=== PATIENT | male | born 1965 | race Caucasian/White ===

== ENCOUNTER 2020-07-22 07:53 | Emergency (ER) | payer OTHER, SELFPAY ==
--- NOTE | ~2020-07-22 | XR_ITS ---
EXAMINATION: XR tibia fibula RT 2V EXAM DATE: 07/22/2020 08:13 INDICATION: Initial encounter following injury, with pain of the right tibia/fibula laterally. TECHNIQUE: Right tibia/fibula frontal and lateral projections obtained and reviewed. There is no eron or study for comparison. FINDINGS: Right tibial and fibular shafts unremarkable. There are no acute fractures or dislocations identified. There is no subcutaneous gas. The soft tissue is unremarkable. There are no radiopaq ue foreign bodies. IMPRESSION: 1. XR tibia fibula RT 2V exam without acute osseous findings. Reviewed, dictated and finalized at location D.
[2020-07-22 08:00] VITALS: BP 157/98; PULSE 100; RESP 16; TEMP 37.1; O2SAT 95
--- NOTE | 2020-07-22 08:09 | ED.LOWEXIN ---
HPI - Extremity Injury (Lower) General Chief Complaint: Extremity Injury, Lower Stated Complaint: right leg injury Time Seen by Provider: 07/22/20 08:02 History of Present Illness HPI Narrative: Patient is a 54-year-old male who presents ER with right lower extremity pain. Patient reports he is walking last night and tripped over a case of bottled water. Sudden onset pain right lower extremity lateral aspect of the calf. Was able to barely bear weight and go to bed. She woke up this morning cannot stand on it due to pain. No numbness or tingling or swelling. He did not strike his head or lose consciousness. Related Data Home Medications Medication Instructions Recorded Confirmed atorvastatin 07/22/20 07/22/20 lisinopril 07/22/20 sitagliptin-metformin [Janumet] tablet 07/22/20 Allergies Allergy/AdvReac Type Severity Reaction Status Date / Time Iodine and Iodide Containing Allergy Unknown life Verified 07/22/20 08:03 Produc threatening Contrast Media Allergy Severe Anaphylactic Uncoded 07/22/20 08:03 Shock Review of Systems Review of Systems: All systems reviewed & are unremarkable except as noted in HPI and below Musculoskeletal: Musculoskeletal: Denies back pain, Denies arthralgias, Denies joint swelling and Reports muscle cramps Comments: Right lower extremity pain Neurologic: Denies syncope, Denies headache(s), Denies focal weakness and Denies numbness PMFSH Past Medical History Medical History (Updated 07/22/20 @ 09:45 by Daniel Walker MD) Diabetes Hypertension Surgical History Surgical History (Updated 07/22/20 @ 08:10 by Daniel Walker MD) History of back surgery Family History Family History (Updated 10/17/15 @ 23:19 by DOCTOR UNKNOWN) Sibling Family history of premature coronary heart disease Family history of chronic obstructive pulmonary disease Family history of diabetes mellitus in first degree relative Father Family history of chronic obstructive pulmonary disease, Onset Age: 78 Family history of coronary artery disease, Onset Age: 78 Patient's father is , Onset Age: 78 Grandparent Diabetes mellitus Social History Social History Smoking status: Heavy tobacco smoker Exam Narrative: Exam Narrative: GENERAL: Well-appearing, well-nourished, and in no acute distress. HEAD: Normocephalic, atraumatic. CHEST: Clear to auscultation. No respiratory distress. HEART: Regular rate and rhythm. Normal peripheral pulses. EXTREMITIES: Normal range of motion at the hip/knee/ankle in the right lower extremity with passive motion. Palpation over the mid to proximal aspect of the fibula. No swelling or deformity or bruising. Negative Homans' sign. No pedal edema. Dorsalis pedis and posterior tibial pulses intact. SKIN: Warm, dry, no rash. NEURO: Alert and oriented x3. Sensation intact in right lower extremity. PSYCH: Normal mood and affect. Course Course Emergency Course: Patient informed of results. No evidence of fracture. Suspect patient has calf strain or deep muscle contusion. Will place on anti-inflammatories and give crutches to bear weight as tolerated. Discussed signs and symptoms to prompt return to the ER. Vital Signs Vital signs: Vital Signs Temperature 98.7 F 07/22/20 08:00 Pulse Rate 100 07/22/20 08:00 Respiratory Rate 16 07/22/20 08:00 Blood Pressure 157/98 H 07/22/20 08:00 Pulse Oximetry 95 07/22/20 08:00 Temperature 98.7 F 07/22/20 08:00 Pulse Rate 100 07/22/20 08:00 Respiratory Rate 16 07/22/20 08:00 Blood Pressure 157/98 H 07/22/20 08:00 Pulse Oximetry 95 07/22/20 08:00 MDM - Extremity Injury (Lower) Imaging Data Radiologist's impression: ITS Impressions Tibia/Fibula X-Ray 07/22/20 08:17 IMPRESSION: 1. XR tibia fibula RT 2V exam without acute osseous findings. Discharge Plan Discharge Clinical Impression: Pain of right calf Patient
[2020-07-22] MEDS: HYDROcodone/acetaminophen (*CRX) 5-325 MG TABLET 1 TAB PO (08:26)
[2020-07-22 10:06] VITALS: BP 151/89; PULSE 88; RESP 18; O2SAT 95
== END 2020-07-22 10:08 | disposition home or self-care (01) ==
PROVIDERS: Emergency Provider Emergency Medicine
DX: M79.661 Pain in right lower leg (principal); I10 Essential (primary) hypertension; E11.9 Type 2 diabetes mellitus without complications; Z79.84 Long term (current) use of oral hypoglycemic drugs
CPT/HCPCS: 73590; 99283; A9270

== ENCOUNTER 2020-10-23 14:56 | Outpatient (CLI) | payer OTHER, SELFPAY ==
--- NOTE | ~2020-10-23 | XR_ITS ---
XR hip RT min 2V DATE: 10/23/2020 15:12 INDICATION: Right hip pain for 2 months. No known injury. TECHNIQUE: AP, lateral and crosstable lateral views of right hip COMPARISON: None FINDINGS: No fracture or dislocation, avascular necrosis or bone destruction of the right hip. The pu bic symphysis and right sacroiliac joint are intact. IMPRESSION: No significant abnormality of the right hip Reviewed, dictated and finalized at location B.
== END 2020-10-23 14:57 | disposition home or self-care (01) ==
LOC: ANHIMG 14:59
PROVIDERS: PCP Internal Medicine; Visit Provider Nurse Practitioner
DX: M25.551 Pain in right hip (principal)
CPT/HCPCS: 73502

== ENCOUNTER 2020-10-28 14:06 | Outpatient (CLI) | payer OTHER, SELFPAY ==
--- NOTE | ~2020-10-28 | US_ITS ---
EXAMINATION: US arterial duplex LE RT DATE: 10/28/2020 14:56 INDICATION: Peripheral vascular disease with right hip pain TECHNIQUE: Multiple grayscale and Doppler ultrasound images of the arteries of the right lower limb w ere obtained. COMPARISON: None FINDINGS: Grayscale images there is small amount of scattered echogenic calcified atherosclerotic plaque along the arteries of the right lower limb, none of which on grayscale imaging appears hemodynamically sign ificant. Triphasic waveforms with brisk systolic upstrokes are seen in the right common femoral, femo ral, popliteal, peroneal, posterior tibial and dorsalis pedis arteries. IMPRESSION: 1. Normal triphasic waveforms with brisk systolic upstrokes throughout the arteries of the right lowe r limb with mild scattered atherosclerotic plaque which does not appear hemodynamically significant. Reviewed, dictated and finalized at location A. IMPRESSION: 1. Normal triphasic waveforms with brisk systolic upstrokes throughout the mala nadeem of the right lower limb with mild scattered atherosclerotic plaque which d oes not appear hemodynamically significant.
== END 2020-10-28 14:07 | disposition home or self-care (01) ==
PROVIDERS: PCP Internal Medicine; Visit Provider Nurse Practitioner
DX: I73.9 Peripheral vascular disease, unspecified (principal); M25.551 Pain in right hip
CPT/HCPCS: 93926

== ENCOUNTER 2021-01-19 12:09 | Outpatient (CLI) | payer OTHER, SELFPAY ==
[2021-01-19 12:41] LABS: Alanine Aminotransferase 29 U/L (4-50); Albumin Level 4.4 g/dL (3.5-5.1); Alkaline Phosphatase 75 U/L (38-126); Anion Gap 6 mmol/L (8-16); Aspartate Amino Transferase 32 U/L (17-59); Bilirubin,Total 0.9 mg/dL (0.2-1.3); Blood Urea Nitrogen 9 mg/dL (9-20); Calcium 9.4 mg/dL (8.4-10.2); Carbon Dioxide 32 mmol/L (22-30); Chloride 103 mmol/L (98-107); Cholesterol 147 mg/dL (0-200); Estimated Glomerular Filt Rate > 60; Glucose 145 mg/dL (65-110); HDL Direct 52 mg/dL; Sodium 141 mmol/L (137-145); Triglycerides 223 mg/dL (<150)
[2021-01-19 12:51] LABS: LDL Cholesterol Direct 69 mg/dL
[2021-01-19 13:09] LABS: Prostate Specific Antigen 1.1 ng/mL (< OR = 4.0)
[2021-01-19 15:04] LABS: Hemoglobin A1C 7.1 % (<5.7)
== END 2021-01-19 12:10 | disposition home or self-care (01) ==
LOC: ANHLAB 12:11
PROVIDERS: PCP Internal Medicine; Visit Provider Nurse Practitioner
DX: E78.5 Hyperlipidemia, unspecified (principal); E11.9 Type 2 diabetes mellitus without complications; Z12.5 Encounter for screening for malignant neoplasm of prostate; E03.9 Hypothyroidism, unspecified
CPT/HCPCS: 36415; 80053; 80061; 83036; 84153; 84443; G0103

== ENCOUNTER 2021-01-26 11:38 | Outpatient (CLI) | payer OTHER, SELFPAY | END 2021-01-26 11:39 | disposition home or self-care (01) | LOC: ANHLAB 11:39 | PROVIDERS: PCP Internal Medicine; Visit Provider Internal Medicine | DX: G25.81 Restless legs syndrome (principal) | CPT/HCPCS: 36415; 82728 ==

== ENCOUNTER 2021-03-17 14:57 | Outpatient (CLI) | payer OTHER, SELFPAY ==
--- NOTE | ~2021-03-17 | CT_ITS ---
EXAMINATION:CT lung screening DATE: 03/17/2021 15:20 INDICATION: Personal history of tobacco dependence. Current smoker with 45 pack year history. TECHNIQUE: Computed tomography (CT) of the chest was performed without intravenous contrast. Automate d exposure control and iterative reconstruction technique were employed. The dose-length product (DLP ) was 279.95 mGy-cm. COMPARISON: None. FINDINGS: There is mild emphysema. A calcified right lung nodule and calcified right hilar lymph node s are consistent with old granulomatous disease. There is mild atelectasis bilaterally. No pleural ef fusion. The heart size is normal. There are coronary artery calcifications. No pericardial effusion. There is moderate thoracic spondylosis. IMPRESSION: 1. Lung-RADS category 1: Negative. Continue annual screening with noncontrast low-dose chest CT in 12 months. Reviewed, dictated and finalized at location B. 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 Lung-RADS category 1: Negative. Continue annual screening with noncontrast l ow-dose chest CT in 12 months.
== END 2021-03-17 14:58 | disposition home or self-care (01) ==
LOC: ANHIMG 15:02
PROVIDERS: PCP Internal Medicine; Visit Provider Nurse Practitioner
DX: Z12.2 Encounter for screening for malignant neoplasm of respiratory organs (principal); Z87.891 Personal history of nicotine dependence
CPT/HCPCS: 71271

== ENCOUNTER 2021-07-22 08:37 | Outpatient (CLI) | payer OTHER, SELFPAY ==
--- NOTE | 2021-07-22 11:00 | NEURO_ITS ---
Impression: # Complains of burning pain in lower extremties. 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 # Needle/EMG exam revealed neurogenic changes in multiple muscles. Nerve Conduction Studies Anti Sensory Summary Table Stim Site NR Peak (ms) P-T Amp (?V) Site1 Site2 Delta-P (ms) Dist (cm) Maverick (m/s) Left Sup Fibular Anti Sensory (Ant Lat Mall) NO RESPONSE 14 cm NR 14 cm Ant Lat Mall 16.0 Right Sup Fibular Anti Sensory (Ant Lat Mall) NO RESPONSE 14 cm NR 14 cm Ant Lat Mall 16.0 Left Sural Anti Sensory (Lat Mall) Calf 3.8 42.0 Calf Lat Mall 3.8 16.0 42 Right Sural Anti Sensory (Lat Mall) NO RESPONSE Calf NR Calf Lat Mall 16.0 Motor Summary Table Stim Site NR Onset (ms) O-P Amp (mV) Site1 Site2 Delta-0 (ms) Dist (cm) Maverick (m/s) Left Peroneal Motor (Vastus Med) NO RESPONSE Ankle NR Popit Ankle 0.0 Popit NR Right Peroneal Motor (Vastus Med) Ankle 5.5 1.1 Popit Ankle 11.3 38.0 34 Popit 16.8 1.7 Left Tibial Motor (Abd Baca Brev) Ankle 7.0 1.5 Knee Ankle 10.7 41.0 38 Knee 17.7 3.7 Right Tibial Motor (Abd Baca Brev) Ankle 5.0 5.4 Knee Ankle 11.4 40.0 35 Knee 16.4 4.0 F Wave Studies NR F-Lat (ms) L-R F-Lat (ms) Left Peroneal (Mrkrs) (EDB) NO RESPONSE NR Right Peroneal (Mrkrs) (EDB) 61.10 Left Tibial (Mrkrs) (Abd Hallucis) DISPERSED RESPONSE NR Right Tibial (Mrkrs) (Abd Hallucis) 58.09 EMG Side Muscle Nerve Root Ins Act Fibs Amp Dur Recrt Comment Right AntTibialis Dp Br Fibular L4-5 Nml Nml Nml Nml Nml Right Gastroc Tibial S1-2 Nml Nml Nml Nml Nml Right Fibularis Long Sup Br Fibular L5-S1 Nml Nml Nml >12ms Reduced Right Flex Dig Long Tibial L5-S2 Nml Nml Nml >12ms Reduced Right Ext Dig Brev Dp Br Fibular L5, S1 Nml Nml Nml >12ms Reduced Left AntTibialis Dp Br Fibular L4-5 Nml Nml Nml Nml Nml Left Gastroc Tibial S1-2 Nml Nml Nml Nml Nml Left Fibularis Long Sup Br Fibular L5-S1 Nml Nml Nml >12ms Reduced Left Flex Dig Long Tibial L5-S2 Nml Nml Nml >12ms Reduced Left Ext Dig Brev Dp Br Fibular L5, S1 Nml Nml Nml >12ms Reduced MTDD
== END 2021-07-22 08:38 | disposition home or self-care (01) ==
LOC: ANHNEURO 08:39
PROVIDERS: PCP Internal Medicine; Visit Provider Internal Medicine
DX: E11.40 Type 2 diabetes mellitus with diabetic neuropathy, unspecified (principal); E11.65 Type 2 diabetes mellitus with hyperglycemia; G62.9 Polyneuropathy, unspecified
CPT/HCPCS: 95886; 95910

== ENCOUNTER 2021-07-31 14:54 | Outpatient (CLI) | payer OTHER, SELFPAY ==
[2021-07-31 15:32] LABS: Alanine Aminotransferase 33 U/L (6-50); Albumin Level 4.6 g/dL (3.5-5.1); Alkaline Phosphatase 98 U/L (38-126); Anion Gap 9 mmol/L (8-16); Aspartate Amino Transferase 35 U/L (17-59); Bilirubin,Total 0.5 mg/dL (0.2-1.3); Blood Urea Nitrogen 12 mg/dL (9-20); Calcium 9.1 mg/dL (8.4-10.2); Carbon Dioxide 25 mmol/L (22-30); Chloride 104 mmol/L (98-107); Cholesterol 137 mg/dL (0-200); Estimated Glomerular Filt Rate > 60; Glucose 110 mg/dL (65-110); HDL Direct 42 mg/dL; Potassium 4.1 mmol/L (3.4-5.0); Sodium 138 mmol/L (137-145); Triglycerides 329 mg/dL (<150)
[2021-07-31 15:43] LABS: LDL Cholesterol Direct 56 mg/dL
[2021-07-31 16:16] LABS: Creatinine Urine 62.2 mg/dL
[2021-07-31 16:36] LABS: MALB Creatinine Ratio 714.3 mg/g (0-30); Microalbumin Urine Random 444.3 mg/L (0-16.7)
[2021-07-31 16:52] LABS: Hemoglobin A1C 6.4 % (<5.7)
== END 2021-07-31 14:55 | disposition home or self-care (01) ==
PROVIDERS: PCP Internal Medicine; Visit Provider Internal Medicine
DX: E11.65 Type 2 diabetes mellitus with hyperglycemia (principal); E11.40 Type 2 diabetes mellitus with diabetic neuropathy, unspecified; I10 Essential (primary) hypertension; E78.5 Hyperlipidemia, unspecified
CPT/HCPCS: 36415; 80053; 80061; 82043; 83036

== ENCOUNTER 2021-08-30 13:35 | Outpatient (CLI) | payer OTHER, SELFPAY ==
--- NOTE | ~2021-08-30 | MR_ITS ---
EXAMINATION: MR lumbar spine wo con DATE: 08/30/2021 14:11 INDICATION: Spinal stenosis TECHNIQUE: Magnetic resonance imaging (MRI) of the lumbar spine was performed without intravenous con trast. Sequences included sagittal T2-weighted FSE, sagittal T2-weighted FS FSE, sagittal T1-weighted FSE, and axial T2-weighted FSE. COMPARISON: Lumbar spine radiographs dated 11/09/[address] dated 03/17/2021 FINDINGS: Hypoplastic bilateral riblets at T12. Sacralized L5 segment with 4 more cephalad nonrib-bearing lumba r segments L1-L4. Chronic mild anterior wedging at T11 and T12. The more caudal lumbar vertebral body heights are normal. Severe disc height loss with prominent fibrovascular degenerative endplate leon es at L4-L5. Additional mild fibrovascular degenerative endplate changes anteriorly at the superior e ndplate of L4 and minimally along the inferior endplates of T12 and L1. Mild disc height loss at T9-T 10 through T11-T12 as well as at L2-L3 and L3-L4. The conus medullaris terminates at T12-L1. There is normal signal in the caudal spinal cord. Bilateral T2 hyperintense renal cysts the largest on the ri ght measuring 1.6 cm. Paravertebral soft tissues are otherwise unremarkable. The following disc level s are specifically discussed: T10-T11: Annular fissure and ventral disc extrusion measuring 8 x 5 x 6 mm which indents the ventral surface of the cord. There is an additional small left foraminal zone disc protrusion. There is mild bilateral facet joint osteoarthritis. There is mild right and moderate left neural foraminal stenosis . There is mild central canal stenosis. T11-T12: The disc does not extend beyond the endplate margin. There is mild bilateral facet joint ost eoarthritis. There is no neural foraminal stenosis. There is no central canal stenosis. T12-L1: The disc does not extend beyond the endplate margin. There is mild bilateral facet joint oste oarthritis. There is no neural foraminal stenosis. There is no central canal stenosis. L1-L2: Disc is bulging. There is mild bilateral facet joint osteoarthritis. There is moderate bilater al neural foraminal stenosis. There is mild central canal stenosis. L2-L3: Disc is bulging. There is mild bilateral facet joint osteoarthritis. There is moderate left an d mild to moderate right neural foraminal stenosis. There is mild to moderate central canal stenosis. L3-L4: Disc is bulging. There is hypertrophy of the ligamentum flavum as well as mild epidural lipoma tosis. There is moderate left and moderate to severe right facet joint osteoarthritis. There is moder ate bilateral neural foraminal stenosis. There is severe central canal stenosis. L4-L5: . Fissure with broad-based disc extrusion extending from foraminal zone to foraminal zone with disc material extending a few millimeters cephalad and caudal to the level of the endplates. There i s moderate right and moderate to severe left facet joint osteoarthritis. Postoperative change of prio r right hemilaminotomy with resection of the right ligamentum flavum. Mild hypertrophy of the left li gamentum flavum. There is moderate to severe bilateral neural foraminal stenosis. There is mild to mo derate central canal stenosis. L5-S1: Localized L5 segment with rudimentary disc which does not extend beyond the endplate margins. There is no neural foraminal stenosis. There is no central canal stenosis. IMPRESSION: 1. Sacralized L5 segment with severe spondylosis at L4-L5 and severe central canal stenosis at L3-L4. Mild spondylosis in the more cephalad lumbar and lower thoracic spine. Reviewed, dictated and finalized at location A. IMPRESSION: 1. Sacralized L5 segment with severe spondylosis at L4-L5 and severe central ca nal stenosis at L3-L4. Mild spon
== END 2021-08-30 13:36 | disposition home or self-care (01) ==
PROVIDERS: PCP Internal Medicine; Visit Provider Psychiatry & Neurology Neurology
DX: M47.815 Spondylosis without myelopathy or radiculopathy, thoracolumbar region (principal); M48.05 Spinal stenosis, thoracolumbar region
CPT/HCPCS: 72148

== ENCOUNTER 2021-09-30 01:00 | Day surgery (SDC) | payer OTHER, SELFPAY ==
[2021-09-28 10:50] VITALS: BMI 33.5
--- NOTE | 2021-09-28 11:00 | PC.NURSE ---
Report to the Outpatient Waiting Room, entrance under the green pavilion located off [facility], at time 1000 on date 09/30/21. OR Time: 1200. - You and your visitor will be asked a series of questions to screen for COVID 19 for your protection. - Only one visitor is allowed at this time. - The patient visitor is requested to leave or wait in car when not with patient. - A mask is required within the hospital. Patients may have clear liquids (water, carbonated beverages, clear teas, apple juice) until 3 hours prior to surgery with a maximum of 20 ounces. - No food from midnight until time of surgery Take the following medications with a SIP of water the morning of surgery: DOXYCYCLINE, METOPROLOL Medications to discontinue per physician: VITAMINS/SUPPLEMENTS Date to take last dose: NO MORE UNTIL AFTER SURGERY Please no make-up, nail welsh, hairspray, perfume, deodorant, or body powder the day of surgery. No jewelry (including any body piercings) or valuables the day of surgery, leave them at home. Please take a shower or bath the night before, or the morning of, surgery with an antibacterial soap. Wear comfortable, loose fitting clothing. - Jewelry must be removed prior to entering the operating room. Rings and piercings that are not removed may be cut off. - The hospital will not accept responsibility for valuables. - Please leave all valuables, including medications, at home the day of surgery. If you are going home after surgery, a licensed school bus driver/mechanic must drive you home. - NO public transportation without another adult. - We recommend that an adult stay with you for 24 hours following discharge. - We also recommend that you do not drive, make important decision, drink alcoholic beverages, or take any drugs that were not prescribed by your health care provider for at least 24 hours after your discharge time. Follow any additional instructions given to you from your surgeon. If you or anyone in your household have experienced Covid symptoms in the past week, please notify your surgeon or the nurse liaison at the phone number below for possible testing. Telephone instructions given to PT - ESTEFANIA TURPIN and asked if any additional questions and then verbalized understanding. Patient advised to call surgeon office or pre surgery nurse liaison [phone] if any additional questions.
--- NOTE | 2021-09-29 12:16 | WPDANESEPPF ---
Anes - Initial Pre Proc Eval Procedure: Operation Date: 09/30/21 12:00 Proposed Procedures p Incision and Drainage Right Buttock Abscess - Miguel Hughes MD Date/Time: 09/29/21 12:16 Surgeon: Miguel Hughes MD Pre Op Diagnosis: right buttock abscess Patient Data Age: 55 Gender: M Height: 1.75 m Weight: 103 kg Allergies Allergy/AdvReac Type Severity Reaction Status Date / Time Iodine and Iodide Containing Allergy Unknown life Verified 09/30/21 10:41 Produc threatening gabapentin Allergy lethargic Verified 09/30/21 10:41 pramipexole Allergy Vomiting Verified 09/30/21 10:41 ropinirole Allergy Vomiting Verified 09/30/21 10:41 Contrast Media Allergy Severe Anaphylactic Uncoded 09/30/21 10:41 Shock Home Medications Medication Instructions Recorded Confirmed Type glipizide 5 mg tablet 5 mg PO DAILY #90 tabs 03/12/21 09/30/21 Rx metformin 1,000 mg tablet 1,000 mg PO BID #180 tabs 03/12/21 09/30/21 Rx atorvastatin 10 mg tablet 10 mg PO DAILY #90 tabs 04/29/21 09/30/21 Rx lisinopril 10 mg tablet 10 mg PO DAILY #90 tabs 04/29/21 09/30/21 Rx cyclobenzaprine 10 mg tablet 10 mg PO BID PRN muscle spasm #60 08/03/21 09/30/21 Rx tabs omega 4-mrj-yin-fish oil 1,000 mg 1 cap PO BID 08/18/21 09/30/21 History (120 mg-180 mg) capsule (Fish Oil) alfuzosin 10 mg tablet,extended 10 mg PO DAILY 08/19/21 09/30/21 History release 24 hr cholestyramine-aspartame 4 gram 4 g PO BID #210 grams 08/26/21 09/30/21 Rx oral powder (Questran Light) doxycycline hyclate 100 mg capsule 100 mg PO DAILY #20 caps 09/25/21 09/30/21 Rx metoprolol succinate 50 mg 50 mg PO DAILY #90 tabs 09/25/21 09/30/21 Rx tablet,extended release 24 hr triamcinolone acetonide 0.025 % 1 applic topical BID PRN Rash 09/28/21 09/30/21 History topical cream Patient hx anesthesia problems: none Family hx anesthesia problems: none Results Review: All pre-operative results and documents have been reviewed as part of the pre-operative evaluation. [facility] Past Medical History Medical History COPD (chronic obstructive pulmonary disease) Diabetes Essential hypertension Hypertension Mixed hyperlipidemia Obesity PATITO (obstructive sleep apnea) Restless legs syndrome Tobacco use Urine troubles Surgical History Surgical History History of back surgery History of laminectomy History of tonsillectomy Status post laminectomy Family History Family History Sibling Family history of premature coronary heart disease Family history of chronic obstructive pulmonary disease Family history of diabetes mellitus in first degree relative Father Family history of chronic obstructive pulmonary disease, Onset Age: 78 Family history of coronary artery disease, Onset Age: 78 Patient's father is , Onset Age: 78 Grandparent Diabetes mellitus Social History Social History Smoking packs per day: 0.5 Smoking cigarettes per day: 10.0 Years smoked: 45 Smoking pack-years: 22.50 Smoking status: Current every day smoker Tobacco type: cigarettes Second hand tobacco smoke exposure: No Alcohol intake: current Drinks per week: 4 Alcohol use details: mixed drinks Substance use: never Substance use type: does not use Living arrangements: alone Gender identity (if verbalized by the patient): Male Spiritual care concerns: No Anes - Eval Final PreProcedure Day of Procedure 09/29/21 12:16 Patient weight: obese Heart: regular rate and rhythm Lungs: clear to auscultation and normal air movement Airway: Mallampati scale class II Neurological: alert and oriented Last oral intake: >/= 8 hours ASA classification: III Emergent: no Anesthetic plan: proceed Anesthesia type a
--- NOTE | 2021-09-30 09:57 | WPDHPUPDATE1 ---
History and Physical Update Update Date/Time: 09/30/21 09:57 History and Physical has been reviewed, including an updated exam of the patient. There are NO changes in the patient's condition. Risks, benefits, and alternatives have been discussed and questions answered. Patient agrees to proceed with procedure.
[2021-09-30 10:07] VITALS: BP 156/90; PULSE 103; RESP 18; TEMP 36.6; O2SAT 97
[2021-09-30] MEDS: LACTATED RINGERS 1,000 ML 30 ML IV CONT (10:25)
[2021-09-30 10:31] LABS: Glucose Point of Care 158 mg/dl (65-105)
[2021-09-30] MEDS: ceFAZolin 2 GM/D5W 50 ML 2 GM/50 ML BAG IVPB (12:04)
[2021-09-30 12:38] VITALS: BP 113/63; PULSE 94; RESP 14; O2SAT 94
[2021-09-30] MEDS: BUPIVACAINE/EPINEPHRINE 0.25% 50 ML VIAL INFILTRATE (12:42)
[2021-09-30 12:44] LABS: Glucose Point of Care 154 mg/dl (65-105)
[2021-09-30 13:00] VITALS: BP 138/97; PULSE 92; RESP 20
[2021-09-30 13:25] VITALS: BP 148/90; PULSE 98; RESP 20
--- NOTE | 2021-09-30 13:25 | W.PM.PROC2 ---
Procedure Note - Detailed Date of Procedure 09/30/21 Pre-op Diagnosis right buttock abscess Post-op Diagnosis Same Procedure Performed Incision and drainage complex right buttocks abscess Surgeon Miguel Hughes MD [employer] Maker And Install[employer] Deborah Blanco [facility] Anesthesia General (G IV S) and Local (0.25% bupivacaine with epinephrine) Indications Patient has had a painful swelling with purulent drainage on his right buttocks near the hip. He was seen in the office and found to have a large abscess likely due to an infected cyst. He is taken to surgery now for incision and drainage. Findings Large abscess with cyst contents and purulent fluid Description of Procedure Patient was taken to surgery and anesthesia was introduced. He was placed in left lateral decubitus positions so that the right hip was exposed. This was prepped and draped. Local anesthetic was infiltrated over an area where purulent drainage was coming forth that was located more laterally on the abscess. I then passed a curved clamp into this opening and was able to assess the extent of the abscess. A cruciate incision was then made over this opening. Purulent fluid was evacuated. Some cyst contents were removed. I then passed the Yankauer suction into the abscess and broke up any loculations. I removed some of the skin edges from the cruciate incision. We then irrigated the abscess was saline thoroughly. No further purulent or cyst content was present. The wound was packed with about 18 in of 1 in iodoform Nu Gauze. Bulky fluffs and ABD were placed. Medipore tape was used. Patient was returned to a supine position, awakened and taken to outpatient recovery in good condition. Estimated Blood Loss -5 Drains No Packing Yes (1 in iodoform Nu Gauze) Pathology None sent Complications No immediate complications Condition Stable Disposition Same day [facility] Billing Surgery - Charge Forward: Surgery Billing (Incision and drainage of complex right buttocks abscess)
== END 2021-09-30 13:35 | disposition home or self-care (01) ==
PROVIDERS: PCP Nurse Practitioner; Visit Provider Surgery
PROC: (CPT 46040; principal; 2021-09-30 13:00)
DX: L02.31 Cutaneous abscess of buttock (principal); J44.9 Chronic obstructive pulmonary disease, unspecified; E11.9 Type 2 diabetes mellitus without complications; I10 Essential (primary) hypertension; E78.2 Mixed hyperlipidemia; G47.33 Obstructive sleep apnea (adult) (pediatric); G25.81 Restless legs syndrome; E66.9 Obesity, unspecified; Z68.33 Body mass index [BMI] 33.0-33.9, adult; Z79.84 Long term (current) use of oral hypoglycemic drugs; F17.210 Nicotine dependence, cigarettes, uncomplicated
CPT/HCPCS: 10061; 82948; A9270; J0690; J2250; J2704; J3010; J7120

== ENCOUNTER 2021-12-16 10:53 | Outpatient (CLI) | payer OTHER, SELFPAY ==
--- NOTE | ~2021-12-16 | MR_ITS ---
EXAMINATION: MR lumbar spine wo/w con DATE: 12/16/2021 11:48 INDICATION: Lumbar spinal stenosis. Low back pain. TECHNIQUE: Magnetic resonance imaging (MRI) of the lumbar spine was performed without and with 20 mL MultiHance intravenous contrast. COMPARISON: Lumbar spine MRI 08/30/2021, chest CT 03/17/2021 FINDINGS: L5 is a transitional segment. There is mild chronic anterior wedging of T11 and T12 vertebr al bodies. There are Schmorl's nodes at multiple levels. There is mildly decreased disc height at L3- L4 and severely decreased disc height at L4-L5. At T10-T11, there is a central extrusion with mild ce ntral canal stenosis and ventral indentation of the spinal cord. The distal spinal cord signal intens ity is normal. The conus medullaris is at T12. There are cysts in the kidneys measuring up to 14 mm o n the right. The following disc levels are specifically discussed: L1-L2: The disc is bulging. There is mild bilateral facet joint osteoarthritis. There is mild right a nd moderate left neural foraminal stenosis. There is mild central canal stenosis. L2-L3: The disc is bulging and has an annular fissure. There is mild bilateral facet joint osteoarthr itis. There is mild right and moderate left neural foraminal stenosis. There is mild central canal st enosis. L3-L4: The disc is bulging. There is severe right and moderate left facet joint osteoarthritis. There is moderate bilateral neural foraminal stenosis. There is mild central canal stenosis. L4-L5: The disc is bulging and has an annular fissure. There is moderate bilateral facet joint osteoa rthritis. There is moderate bilateral neural foraminal stenosis. There is mild central canal stenosis with posterior decompression. L5-S1: The disc does not extend beyond the endplate margin. There is no facet joint osteoarthritis. T here is no neural foraminal stenosis. There is no central canal stenosis. IMPRESSION: 1. Severe lower lumbar spondylosis, stable from 08/30/2021. Reviewed, dictated and finalized at location A.
== END 2021-12-16 10:54 | disposition home or self-care (01) ==
PROVIDERS: PCP Internal Medicine; Visit Provider Neurological Surgery
DX: M48.061 Spinal stenosis, lumbar region without neurogenic claudication (principal); M47.816 Spondylosis without myelopathy or radiculopathy, lumbar region
CPT/HCPCS: 72158; A9577

== ENCOUNTER 2022-01-04 10:30 | Outpatient (RCR) | payer OTHER, SELFPAY ==
--- NOTE | 2021-11-25 12:12 | PTOPEVAL1 ---
Evaluation Information Assessment Status Evaluation Diagnosis DDD, stenosis Onset 6 years, worsening in last year Reported Pain Level Pain Score 5: Self Report Assessment PT Clinical Summary Pt presents w/ c/o low back pain and pain into hips causing difficulty with standing, walking, and activities. Has persisted 6 years, worsening significantly in the past year. Reports area is L4 -5, diagnosis DDD, lumbar stenosis. Evaluation shows abnormal alignment, decreased ROM lumbar spine, decreased ROM hips, tight HS mm, (+) tone multiple lumbopelvic mm groups all effecting pt pain. Today we discussed use of OTC NSAIDs as directed or allowed by MD, cryotherapy 3x daily, home exercise program, therapy plan and planned interventions, as well as goals. Pt will greatly benefit from physical therapy to address above deficits, reduce pain, and improve functional outcomes. Plan of Care Interventions Electrical Stimulation,Gait Training,Hot Pack/Cold Pack,Manual Therapy,Mechanical Traction,Patient/ Caregiver Educati,Therapeutic Activities, Therapeutic Exercise PT Services Indicated Yes Treatment Frequency and 2x weekly x 6 weeks Duration These treatments will address the objective and functional deficits as defined above. The patient will be advanced safely and appropriately in order for the patient to progress towards his/her prior level of function. Additional exercises will be introduced and as well as a comprehensive home exercise program upon discharge, if needed, ?to ensure carryover of functional gains achieved in the clinic. This treatment plan has been reviewed and agreement upon by the patient.
--- NOTE | 2021-12-25 10:15 | PCPTNOTE ---
Patient called & cancelled scheduled appointment this date and for 12/28/21 due to having COVID-19.
--- NOTE | 2022-01-04 12:35 | PTOPEVAL1 ---
Assessment and note entered by Ramya Leonardo, PT Evaluation Information Assessment Status Re-evaluation Diagnosis DDD, stenosis Onset 6 years, worsening in last year Reported Pain Level Pain Score 5: Self Report Additional Pain Score Comments Pt reports he has been more conscious of his posture in sitting and this improves his pain Assessment PT Clinical Summary Pt presents today for Progress Assessment of chronic low back pain w/ DDD and spinal stenosis. Unfortunately in the last 40 days since initial evaluation, pt has only been able to attend 4 treatment sessions d/t sickness. He reports he has been more conscious of his posture which helps his pain, has been using his TENS unit, but since he has been sick has been unable to perform his HEP for a few weeks. He does show improvement in his walking with less guarding, and demo's improved ROM with less pain. Discussed with reassessment and will request renewal of prescription secondary to outside factors effecting his ability to participate fully in therapy. Pt is agreeable to continue therapy to improve his pain and thus improve his activity level and function. Plan of Care Interventions Electrical Stimulation,Hot Pack/Cold Pack,Manual Therapy,Neuro Re-education,Patient/Caregiver Educati,Therapeutic Activities,Therapeutic Exercise,Self-Care/Home Management PT Services Indicated Yes Treatment Frequency and 2x weekly x 4 weeks then reassessment Duration These treatments will address the objective and functional deficits as defined above. The patient will be advanced safely and appropriately in order for the patient to progress towards his/her prior level of function. Additional exercises will be introduced and as well as a comprehensive home exercise program upon discharge, if needed, ?to ensure carryover of functional gains achieved in the clinic. This treatment plan has been reviewed and agreement upon by the patient.
--- NOTE | 2022-01-04 14:04 | PTOPPROG ---
Assessment and note entered by Ramya Leonardo, PT Progress Information Assessment Status Progress note Diagnosis DDD, stenosis Onset 6 years, worsening in last year Assessment PT Clinical Summary Pt presents today for Progress Assessment of chronic low back pain w/ DDD and spinal stenosis. Unfortunately in the last 40 days since initial evaluation, pt has only been able to attend 4 treatment sessions d/t sickness. He reports he has been more conscious of his posture which helps his pain, has been using his TENS unit, but since he has been sick has been unable to perform his HEP for a few weeks. He does show improvement in his walking with less guarding, and demo's improved ROM with less pain. Discussed with reassessment and will request renewal of prescription secondary to outside factors effecting his ability to participate fully in therapy. Pt is agreeable to continue therapy to improve his pain and thus improve his activity level and function. Plan of Care Interventions Electrical Stimulation,Hot Pack/Cold Pack,Manual Therapy,Neuro Re-education,Patient/Caregiver Educati,Therapeutic Activities,Therapeutic Exercise,Self-Care/Home Management PT Services Indicated Yes Treatment Frequency and 2x weekly x 4 weeks then reassessment Duration These treatments will address the objective and functional deficits as defined above. The patient will be advanced safely and appropriately in order for the patient to progress towards his/her prior level of function. Additional exercises will be introduced and as well as a comprehensive home exercise program upon discharge, if needed, ?to ensure carryover of functional gains achieved in the clinic. This treatment plan has been reviewed and agreement upon by the patient.
== END 2022-02-03 15:20 | disposition home or self-care (01) ==
LOC: ANHHIPT 10:30
PROVIDERS: PCP Internal Medicine; Visit Provider Neurological Surgery
DX: M54.50 Low back pain, unspecified (principal); M51.36 Other intervertebral disc degeneration, lumbar region; M48.061 Spinal stenosis, lumbar region without neurogenic claudication
CPT/HCPCS: 97014; 97110; 97112; 97140; 97162; 97530; G0283

== ENCOUNTER 2022-02-03 13:10 | Outpatient (CLI) | payer OTHER, SELFPAY ==
[2022-02-03 13:41] LABS: Alanine Aminotransferase 29 U/L (6-50); Albumin Level 4.5 g/dL (3.5-5.1); Alkaline Phosphatase 65 U/L (38-126); Anion Gap 11 mmol/L (8-16); Aspartate Amino Transferase 34 U/L (17-59); Bilirubin,Total 0.7 mg/dL (0.2-1.3); Blood Urea Nitrogen 11 mg/dL (9-20); Calcium 9.3 mg/dL (8.4-10.2); Carbon Dioxide 31 mmol/L (22-30); Chloride 98 mmol/L (98-107); Cholesterol 133 mg/dL (0-200); Estimated Glomerular Filt Rate > 60; Glucose 120 mg/dL (65-110); HDL Direct 48 mg/dL; Potassium 4.1 mmol/L (3.4-5.0); Sodium 140 mmol/L (137-145); Triglycerides 181 mg/dL (<150)
[2022-02-03 13:52] LABS: LDL Cholesterol Direct 60 mg/dL
[2022-02-03 14:11] LABS: Prostate Specific Antigen 1.1 ng/mL (< OR = 4.0)
== END 2022-02-03 13:11 | disposition home or self-care (01) ==
PROVIDERS: PCP Internal Medicine; Visit Provider Nurse Practitioner
DX: E78.2 Mixed hyperlipidemia (principal); E11.40 Type 2 diabetes mellitus with diabetic neuropathy, unspecified; E11.65 Type 2 diabetes mellitus with hyperglycemia; Z12.5 Encounter for screening for malignant neoplasm of prostate
CPT/HCPCS: 36415; 80053; 80061; 83036; 84153; G0103

== ENCOUNTER 2022-03-29 15:15 | Outpatient (RCR) | payer OTHER, SELFPAY ==
--- NOTE | 2022-01-29 17:18 | PTOPEVAL1 ---
Assessment and note entered by Ramya Leonardo, PT Evaluation Information Assessment Status Evaluation Diagnosis back pain Subjective Information Pt reports his standing and doing some stuff is doing better. Walking far is still painful. Feels can walk slowly for 10 minutes, but this is ias long as can walk. Still doing some exercises from last POC Pt states is going to get a fusion but MD states has to quit smoking first. Reported Pain Level Pain Score 5: Self Report Assessment PT Clinical Summary Pt presents w/ c/o chronic low back pain limiting his ability to perform activities especially standing and walking. Pt reports he can walk his dog about 10 minutes but is unable to any further secondary to pain. Reports pain resolves with sitting to rest however never goes below a 5/10 and goes up to a 10/10. He reports today he is planning on having lumbar fusion surgery but has to quit smoking first. Pt acknowledges purpose of therapy is to strengthen and prepare for surgery, improve functional mobility, and attempt to reduce pain if able. Primary goals for patient are to walk further to allow more functional lifestyle and community mobility. Plan of Care Interventions Electrical Stimulation,Gait Training,Hot Pack/Cold Pack,Manual Therapy,Neuro Re-education,Patient/ Caregiver Educati,Therapeutic Activities, Therapeutic Exercise,Self-Care/Home Management, Ultrasound PT Services Indicated Yes These treatments will address the objective and functional deficits as defined above. The patient will be advanced safely and appropriately in order for the patient to progress towards his/her prior level of function. Additional exercises will be introduced and as well as a comprehensive home exercise program upon discharge, if needed, ?to ensure carryover of functional gains achieved in the clinic. This treatment plan has been reviewed and agreement upon by the patient.
--- NOTE | 2022-02-26 15:06 | PTOPPROG ---
Assessment and note entered by Ramya Leonardo, PT Assessment Status Progress Reports= Diagnosis back pain Subjective Information Pt reports feeling 75% improved since starting therapy this last round. hips are doing much better since therapist adjusted his hips a few visits ago. is also able to walk better and farther before pain is to intense. Is doing his exercises as advised. Assessment PT Clinical Summary Pt reports improvement in pain with lowest pain rating decreasing from 5/10 t0 3/10 and worst pain rating decreasing from 10/10 to 6/10. Reports he is only taking Aleve for his pain at the moment. States he feels he can walk better, and longer with his dog before pain stops him. He also demo's improved strength in core and hip musculature. Cont to demo pelvic alignment deficit and decreased LE flexibility effecting pain in his back in addition to the stenosis and arthritis. Thus pt would benefit from cont therapy continue to improve deficits and thus improve pain and function. Plan of Care Interventions Electrical Stimulation,Gait Training,Hot Pack/Cold Pack,Manual Therapy,Mechanical Traction,Neuro Re- education,Patient/Caregiver Educati,Therapeutic Activities,Therapeutic Exercise,Self-Care/Home Management,Ultrasound PT Services Indicated Yes Treatment Frequency and 1-2x weekly x 4 weeks Duration These treatments will address the objective and functional deficits as defined above. The patient will be advanced safely and appropriately in order for the patient to progress towards his/her prior level of function. Additional exercises will be introduced and as well as a comprehensive home exercise program upon discharge, if needed, ?to ensure carryover of functional gains achieved in the clinic. This treatment plan has been reviewed and agreement upon by the patient.
--- NOTE | 2022-03-30 16:32 | BUPTOPDC ---
Assessment and note entered by Ramya Leonardo, PT Assessment Status Discharge Diagnosis back pain Subjective Information Pt reports feeling 100% improved as much as he can be. 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 Today he has met all goals including worst level of back pain being 5/10, at best a 3/ 10, shows improvement in ROM, and strength, reports improvement in walking, states feels he is 100% as good as can get without surgical intervention. He reports understanding his exercise regiment, and how to access therapy again should he require it. With these improvements and having met his goals, pt is being discharged from therapy at this time. Plan of Care Discharge
== END 2022-03-31 09:08 | disposition home or self-care (01) ==
LOC: ANHHIPT 15:15
PROVIDERS: PCP Internal Medicine; Visit Provider Neurological Surgery
DX: M54.50 Low back pain, unspecified (principal); G89.29 Other chronic pain
CPT/HCPCS: 97014; 97032; 97110; 97140; 97162; G0283

== ENCOUNTER 2022-06-04 09:51 | Outpatient (CLI) | payer OTHER, SELFPAY ==
[2022-06-04 11:51] LABS: Hemoglobin 17.9 g/dL (14.0-18.0)
[2022-06-09 13:50] LABS: Testosterone Free 47.2 pg/mL (46.0-224.0)
== END 2022-06-04 09:52 | disposition home or self-care (01) ==
PROVIDERS: PCP Internal Medicine; Visit Provider Nurse Practitioner
DX: R53.83 Other fatigue (principal)
CPT/HCPCS: 36415; 84153; 84402; 85014; 85018

== ENCOUNTER 2022-07-16 14:50 | Outpatient (CLI) | payer OTHER, SELFPAY ==
--- NOTE | ~2022-07-16 | CT_ITS ---
EXAMINATION: CT sinus wo con DATE: 07/16/2022 15:11 INDICATION: Chronic sinusitis. Sinus pressure. TECHNIQUE: Computed tomography (CT) of the paranasal sinuses was performed without intravenous contra st. Iterative reconstruction technique was employed. The dose-length product was 315.62 mGy-cm. COMPARISON: None FINDINGS: The frontal sinuses are small. There is mild mucosal thickening in the bilateral ethmoid an d maxillary sinuses. The sphenoid sinuses are clear. There is leftward deviation of the nasal septum. There is occlusion of right ostiomeatal unit at hiatus semilunaris and the infundibulum. There is oc clusion of left ostiomeatal unit at the hiatus semilunaris. IMPRESSION: 1. Mild mucosal thickening in the paranasal sinuses with occluded ostiomeatal units. 2. Leftward deviation of the nasal septum. Reviewed, dictated and finalized at location E. IMPRESSION: 1. Mild mucosal thickening in the paranasal sinuses with occluded ostiomeatal u nits. 2. Leftward deviation of the nasal septum.
== END 2022-07-16 14:51 | disposition home or self-care (01) ==
PROVIDERS: PCP Internal Medicine; Visit Provider Otolaryngology
DX: R44.8 Other symptoms and signs involving general sensations and perceptions (principal); J34.89 Other specified disorders of nose and nasal sinuses; J34.3 Hypertrophy of nasal turbinates; J34.2 Deviated nasal septum; J32.9 Chronic sinusitis, unspecified
CPT/HCPCS: 70486

== ENCOUNTER 2022-08-11 09:44 | Outpatient (CLI) | payer OTHER, SELFPAY ==
[2022-08-11 10:21] LABS: Hemoglobin A1C 6.2 % (<5.7)
[2022-08-11 10:27] LABS: Alanine Aminotransferase 27 U/L (6-50); Albumin Level 4.4 g/dL (3.5-5.1); Alkaline Phosphatase 73 U/L (38-126); Anion Gap 5 mmol/L (8-16); Aspartate Amino Transferase 31 U/L (17-59); Bilirubin,Total 0.6 mg/dL (0.2-1.3); Blood Urea Nitrogen 11 mg/dL (9-20); Calcium 8.9 mg/dL (8.4-10.2); Carbon Dioxide 32 mmol/L (22-30); Chloride 99 mmol/L (98-107); Cholesterol 126 mg/dL (0-200); Estimated Glomerular Filt Rate > 60; Glucose 128 mg/dL (65-110); HDL Direct 46 mg/dL; Potassium 4.5 mmol/L (3.4-5.0); Sodium 136 mmol/L (137-145); Triglycerides 420 mg/dL (<150)
[2022-08-11 10:38] LABS: LDL Cholesterol Direct 55 mg/dL
[2022-08-16 10:56] LABS: Testosterone Total 325 ng/dL (250-1100)
== END 2022-08-11 09:45 | disposition home or self-care (01) ==
PROVIDERS: PCP Family Medicine; Referring Provider Nurse Practitioner; Visit Provider Nurse Practitioner
DX: R53.83 Other fatigue (principal); E78.5 Hyperlipidemia, unspecified; E11.9 Type 2 diabetes mellitus without complications
CPT/HCPCS: 36415; 80053; 80061; 83036; 84403

== ENCOUNTER 2022-09-02 09:52 | Outpatient (CLI) | payer OTHER, SELFPAY ==
--- NOTE | 2022-09-02 10:14 | ECG_ITS ---
Measurements Intervals [place] Rate: 113 P: 52 [place]: 156 QRS: 96 QRSD: 149 T: 31 QT: 346 QTc: 476 Interpretive Statements SINUS TACHYCARDIA POSSIBLE LEFT ATRIAL ENLARGEMENT [-0.1mV P WAVE IN V1/V2] RIGHT BUNDLE BRANCH BLOCK [120+ ms QRS DURATION, UPRIGHT V1, 40+ ms S IN I/aVL/V4/V5/V6] NO PREVIOUS ECG AVAILABLE FOR COMPARISON Electronically Signed On 09-02-2022 14:04:53 CDT by Hector Perez M.D.
[2022-09-02 10:32] LABS: Hematocrit 56.1 % (42.0-52.0); Hemoglobin 19.4 g/dL (14.0-18.0)
[2022-09-02 10:51] LABS: Anion Gap 6 mmol/L (8-16); Blood Urea Nitrogen 19 mg/dL (9-20); Calcium 9.8 mg/dL (8.4-10.2); Carbon Dioxide 33 mmol/L (22-30); Chloride 100 mmol/L (98-107); Estimated Glomerular Filt Rate > 60; Glucose 141 mg/dL (65-110); Potassium 4.1 mmol/L (3.4-5.0); Sodium 139 mmol/L (137-145)
[2022-09-02 11:20] LABS: Iron 126 ug/dL (49-181)
[2022-09-02 11:31] LABS: Percent Iron Saturation 32 % (20-50)
[2022-09-08 12:11] LABS: Testosterone Free 94.2 pg/mL (35.0-155.0); Testosterone Total 432 ng/dL (250-1100)
== END 2022-09-02 09:53 | disposition home or self-care (01) ==
PROVIDERS: PCP Family Medicine; Referring Provider Anesthesiology; Visit Provider Family Medicine
DX: E11.40 Type 2 diabetes mellitus with diabetic neuropathy, unspecified (principal); E11.65 Type 2 diabetes mellitus with hyperglycemia; G25.81 Restless legs syndrome; G47.33 Obstructive sleep apnea (adult) (pediatric); I73.9 Peripheral vascular disease, unspecified; R53.83 Other fatigue; E11.9 Type 2 diabetes mellitus without complications; D75.9 Disease of blood and blood-forming organs, unspecified; Z72.0 Tobacco use; Z01.818 Encounter for other preprocedural examination; I45.10 Unspecified right bundle-branch block
CPT/HCPCS: 36415; 80048; 83540; 83550; 84402; 84403; 85014; 85018; 93005

== ENCOUNTER 2022-09-07 00:29 | Day surgery (SDC) | payer OTHER, SELFPAY ==
--- NOTE | 2022-08-31 15:56 | SUR.PREOP ---
Report to the Outpatient Waiting Room, entrance under the green pavilion located off [facility], at time 0715 on date 09/07/22. Planned Procedure Time: 0915. Time changes happen often and if your time is changed the preop area will call you the afternoon before. - You and your visitor will be asked to self-screen and do not enter if you have any COVID symptoms. - A mask is optional within the hospital at this time. Patients may have clear liquids (water, carbonated beverages, clear teas, apple juice) until 3 hours prior to surgery with a maximum of 20 ounces. - NO CLEAR LIQUIDS AFTER 0615 - No food from midnight until time of surgery - Infants may have breast milk until 4 hours before surgery, formula 6 hours prior to surgery. - Children will be allowed to drink immediately following surgery. If applicable, please bring a bottle or sippy cup to assist with drinking. Juice, water, soda, and popsicles are readily available. For infants on formula, please bring formula the day of surgery. Pacifiers are allowed. Take the following medications with a SIP of water the morning of surgery: METOPROLOL & WELLBUTRIN DO NOT STOP ANY OF YOUR OTHER PRESCRIPTION MEDICATIONS PRIOR TO SURGERY ?EXCEPT THE FOLLOWING Medications to discontinue per physician STOP FISH OIL 08/31/[address] BEAULIEU Please no make-up, nail sami, hairspray, perfume, deodorant, or body powder the day of surgery. No jewelry (including any body piercings) or valuables the day of surgery, leave them at home. Please take a shower or bath the night before, or the morning of, surgery with an antibacterial soap. Wear comfortable, loose fitting clothing. Children are encouraged to wear pajamas. - Jewelry must be removed prior to entering the operating room. Rings and piercings that are not removed may be cut off. - The hospital will not accept responsibility for valuables. - Please leave all valuables, including medications, at home the day of surgery. If you are going home after surgery, a licensed assembly line driver must drive you home. - NO public transportation without another adult if you receive anesthesia. - We recommend that an adult stay with you for 24 hours following discharge. - We also recommend that you do not drive, make important decision, drink alcoholic beverages, or take any drugs that were not prescribed by your health care provider for at least 24 hours after your discharge time. For Pediatric surgeries, we recommend two adults accompany the child home. Follow any additional instructions given to you from your surgeon. If you or anyone in your household have experienced Covid symptoms in the past week, please notify your surgeon or the nurse liaison at the phone number below for possible testing. Telephone instructions given to ESTEFANIA TURPIN and asked if any additional questions and then verbalized understanding. Patient advised to call surgeon office or pre surgery nurse liaison [phone] if any additional questions.
[2022-08-31 16:11] VITALS: BMI 36.3
--- NOTE | 2022-09-05 10:55 | PM.IMHP ---
H&P: HPI History of Present Illness Date/Time: 09/05/22 10:55 Chief Complaint: nasal obstruction nasal congestion chronic sinusitis septal deviation turbinate hypertrophy Narrative: planned procedure Review of Systems Review of Systems: All systems reviewed & are unremarkable except as noted in HPI and below PMFSH Past Medical History Medical History (Updated 08/17/22 @ 14:11 by Hoang Bernal MD) COPD (chronic obstructive pulmonary disease) Diabetes Essential hypertension Hypertension Mixed hyperlipidemia Obesity PATITO (obstructive sleep apnea) Restless legs syndrome Urine troubles Surgical History Surgical History History of back surgery History of incision and drainage Incision and drainage complex right buttocks abscess 09/30/21 History of laminectomy History of tonsillectomy Status post laminectomy Family History Family History Sibling Family history of premature coronary heart disease Family history of chronic obstructive pulmonary disease Family history of diabetes mellitus in first degree relative Father Family history of chronic obstructive pulmonary disease, Onset Age: 78 Family history of coronary artery disease, Onset Age: 78 Patient's father is , Onset Age: 78 Grandparent Diabetes mellitus Social History Social History Smoking packs per day: 0.5 Smoking cigarettes per day: 10.0 Years smoked: 45 Smoking pack-years: 22.50 Smoking status: Current every day smoker Tobacco type: cigarettes Second hand tobacco smoke exposure: No Alcohol intake: current Drinks per week: 4 Alcohol use details: mixed drinks Substance use: never Substance use type: does not use Lack of Transportation: No Lack of Food: Never True Current Housing: I Have Housing Concerned About Future Housing: No Difficulty Paying Gas/Electric Bills: No Difficulty Paying for Meds: No Currently Unemployed: YES Education: High School Diploma/GED Difficulty w/ Childcare or Family Care: No Living arrangements: alone Gender identity (if verbalized by the patient): Male Spiritual care concerns: No Meds Home Medications and Allergies Home Medications Medication Instructions Recorded Confirmed Type omega 8-zlm-tje-fish oil 1,000 mg 2 cap PO DAILY 08/18/21 08/31/22 History (120 mg-180 mg) capsule (Fish Oil) alfuzosin 10 mg tablet,extended 10 mg PO DAILY 08/19/21 08/31/22 History release 24 hr nicotine See Rx Instructions transdermal 02/09/22 08/31/22 Rx 21mg/24hr-14mg/24hr-7mg/24hr daily .COMPLEX #56 patches transderm patches,sequentl atorvastatin 10 mg tablet 10 mg PO DAILY #90 tabs 04/05/22 08/31/22 Rx lisinopril 10 mg tablet 10 mg PO DAILY #90 tabs 04/05/22 08/31/22 Rx metoprolol succinate 50 mg 50 mg PO DAILY #90 tabs 04/05/22 08/31/22 Rx tablet,extended release 24 hr azelastine 137 mcg (0.1 %) nasal 1 spray intranasal Q12H #30 mL 07/14/22 08/31/22 Rx spray aerosol fluticasone propionate 50 1 - 2 spray intranasal BID #16 mL 07/14/22 08/31/22 Rx mcg/actuation nasal spray,suspension (Flonase Allergy Relief) glipizide 5 mg tablet 5 mg PO DAILY #90 tabs 07/21/22 08/31/22 Rx bupropion HCl 150 mg 24 hr tablet, 150 mg PO QAM #90 tabs 08/17/22 08/31/22 Rx extended release (Wellbutrin XL) nicotine (polacrilex) 2 mg gum 2 mg buccal Q2H #100 ea 08/17/22 08/31/22 Rx trazodone 50 mg tablet 50 mg PO QHS PRN sleep #60 tabs 08/17/22 08/31/22 Rx metformin 1,000 mg tablet 1,000 mg PO BID #180 tabs 08/27/22 08/31/22 Rx Allergies Allergy/AdvReac Type Severity Reaction Status Date / Time gabapentin Allergy Severe lethargic Verified 08/31/22 15:40 Iodine and Iodide Containing Allergy Severe Anaphylactic Verified 08/31/22 15:40 Produc Shock pramipexole Lyle
--- NOTE | 2022-09-06 13:06 | WPDANESEPPF ---
Anes - Initial Pre Proc Eval Procedure: Operation Date: 09/07/22 10:00 Proposed Procedures p Image Guided Bilateral Maxillary Antrostomy Without Tissue Removal, Bilateral Inferior Turbinectomy with Outfracture, Bilateral Anterior Ethmoidectomy - Natan Parker MD s Endoscopic Septoplasty - Natan Parker MD Date/Time: 09/06/22 13:06 Surgeon: Natan Parker MD Pre Op Diagnosis: Chr Sinusitis Patient Data Age: 56 Gender: M Height: 1.73 m Weight: 108.6 kg Allergies Allergy/AdvReac Type Severity Reaction Status Date / Time gabapentin Allergy Severe lethargic Verified 08/31/22 15:40 Iodine and Iodide Containing Allergy Severe Anaphylactic Verified 08/31/22 15:40 Produc Shock pramipexole Allergy Severe Vomiting Verified 08/31/22 15:40 ropinirole Allergy Severe Vomiting Verified 08/31/22 15:40 Contrast Media Allergy Severe Anaphylactic Uncoded 08/31/22 15:40 Shock Home Medications Medication Instructions Recorded Confirmed Type omega 1-umo-axw-fish oil 1,000 mg 2 cap PO DAILY 08/18/21 08/31/22 History (120 mg-180 mg) capsule (Fish Oil) alfuzosin 10 mg tablet,extended 10 mg PO DAILY 08/19/21 08/31/22 History release 24 hr nicotine See Rx Instructions transdermal 02/09/22 08/31/22 Rx 21mg/24hr-14mg/24hr-7mg/24hr daily .COMPLEX #56 patches transderm patches,sequentl atorvastatin 10 mg tablet 10 mg PO DAILY #90 tabs 04/05/22 08/31/22 Rx lisinopril 10 mg tablet 10 mg PO DAILY #90 tabs 04/05/22 08/31/22 Rx metoprolol succinate 50 mg 50 mg PO DAILY #90 tabs 04/05/22 08/31/22 Rx tablet,extended release 24 hr azelastine 137 mcg (0.1 %) nasal 1 spray intranasal Q12H #30 mL 07/14/22 08/31/22 Rx spray aerosol fluticasone propionate 50 1 - 2 spray intranasal BID #16 mL 07/14/22 08/31/22 Rx mcg/actuation nasal spray,suspension (Flonase Allergy Relief) glipizide 5 mg tablet 5 mg PO DAILY #90 tabs 07/21/22 08/31/22 Rx bupropion HCl 150 mg 24 hr tablet, 150 mg PO QAM #90 tabs 08/17/22 08/31/22 Rx extended release (Wellbutrin XL) nicotine (polacrilex) 2 mg gum 2 mg buccal Q2H #100 ea 08/17/22 08/31/22 Rx trazodone 50 mg tablet 50 mg PO QHS PRN sleep #60 tabs 08/17/22 08/31/22 Rx metformin 1,000 mg tablet 1,000 mg PO BID #180 tabs 08/27/22 08/31/22 Rx Patient hx anesthesia problems: post op nausea/vomiting (30 years ago x1, surgeries since that time have been fine) Family hx anesthesia problems: none Results Review: All pre-operative results and documents have been reviewed as part of the pre-operative evaluation. [facility] Past Medical History Medical History (Updated 09/06/22 @ 13:06 by Dustin Serra DO) COPD (chronic obstructive pulmonary disease) Diabetes Essential hypertension Hypertension Mixed hyperlipidemia Obesity PATITO (obstructive sleep apnea) PONV (postoperative nausea and vomiting) Restless legs syndrome Urine troubles Surgical History Surgical History History of back surgery History of incision and drainage Incision and drainage complex right buttocks abscess 09/30/21 History of laminectomy History of tonsillectomy Status post laminectomy Family History Family History Sibling Family history of premature coronary heart disease Family history of chronic obstructive pulmonary disease Family history of diabetes mellitus in first degree relative Father Family history of chronic obstructive pulmonary disease, Onset Age: 78 Family history of coronary artery disease, Onset Age: 78 Patient's father is , Onset Age: 78 Grandparent Diabetes mellitus Social History Social History Smoking packs per day: 0.5 Smoking cigarettes per day: 10.0 Years smoked: 45 Smoking pack-years: 22.50 Smoking status: Current every day smoker Tobacco type: cigarettes Second
[2022-09-07] VITALS (8 sets, daily range): BP systolic 120–156; BP diastolic 66–91; PULSE 90–100; RESP 13–20; TEMP 36.3–37.2; O2SAT 95–99
--- NOTE | 2022-09-07 07:20 | WPDHPUPDATE1 ---
History and Physical Update Update Date/Time: 09/07/22 07:20 History and Physical has been reviewed, including an updated exam of the patient. There are NO changes in the patient's condition. Risks, benefits, and alternatives have been discussed and questions answered. Patient agrees to proceed with procedure.
[2022-09-07 08:46] LABS: Glucose Point of Care 174 mg/dl (65-105)
[2022-09-07] MEDS: ACETAMINOPHEN 500 MG TABLET 1000 MG PO (09:00)
[2022-09-07] MEDS: LACTATED RINGERS 1,000 ML 30 ML IV CONT ×2 (09:32→13:05)
[2022-09-07] MEDS: ceFAZolin 2 GM/D5W 50 ML 2 GM/50 ML BAG IVPB (10:48)
[2022-09-07] MEDS: LIDO 1%/EPINEPHRINE 1:100,000 50 ML VIAL 20 ML INFILTRATE (11:44)
[2022-09-07] MEDS: OXYMETAZOLINE HCL 0.05% NAS 15 ML BTL (*BKC) 1 SPRAY NASAL (11:47)
[2022-09-07] MEDS: MUPIROCIN 2% OINT 22 GM TUBE 1 APPLIC EACH NARE (12:29)
[2022-09-07 13:14] LABS: Glucose Point of Care 214 mg/dl (65-105)
[2022-09-07 13:14] LABS: Glucose Point of Care 237 mg/dl (65-105)
[2022-09-07] MEDS: INSULIN HUMAN REGULAR (*BKC) 100 UNITS/ML IV PUSH (13:21)
--- NOTE | 2022-09-07 13:28 | W.PM.PROC2 ---
Procedure Note - Detailed Date of Procedure 09/07/22 Pre-op Diagnosis Deviation turbinate hypertrophy chronic sinusitis Post-op Diagnosis Same Procedure Performed endoscopic assisted septoplasty inferior turbinate reduction with outfracture as well as bilateral image guided maxillary antrostomies and bilateral image guided endoscopic anterior ethmoidect Surgeon Natan Parker MD Anesthesia General Indications see above Findings disease tissue in the aforementioned sinuses severely deviated septum severely hypertrophied turbinates. Inadvertent left orbital injury with a small piece of exposed fat Description of Procedure patient identified consent verified in the preoperative holding area. The patient was then brought back to the operating room. General anesthesia was induced and endotracheal tube secured the patient's airway. Patient prepped draped positioned procedure confirm 2nd time-out performed. Afrin-soaked pledgets placed in the nose allowed to sit for 5 minutes then removed. Image guidance initiated and confirmed. [place] incision made on the right side after 10 cc of 1% lidocaine 1 100,000 parts epinephrine is injected into the bilateral nasal septum. He has nasal septal flap elevated bilaterally small tear on the left not on the right deviated septum removed with combination Jessica forceps Memo Samaniego forceps and osteotome. [place] incision closed with 4-0 opted 5 0 fast gut sutures. Turbinates reduced in the submucosal plane then outfractured with a [place] elevator was. Maxillary antrostomies performed under image guidance with backbiter double ball tip probe and straight through cut and downbiting stopper good. Unfortunately when removing the uncinate from the left side orbit was entered and a small piece of orbital fat was exposed. The mucosa was placed over the orbital injury. The right side was performed with the same instruments with no injury to the orbit. Anterior ethmoidectomy performed with [place] image guidance and microdebrider. Bleeding minimal 25 cc total. Again there is a left-sided small orbital injury. Gelfoam was placed the bilateral middle meati I stenting the middle turbinates laterally. Langford splints were then placed bilaterally and sutured anteriorly using a 3-0 mattressed nylon suture. Care care the patient given back to T Anesthesiology. I performed all dictated portions the procedure. Care the patient sorry patient taken to PACU no immediate complication. Estimated Blood Loss -25.0 Drains No Packing Yes ( Gelfoam) Pathology None sent Complications Other complications ( left orbital injury exposed fat) Condition Stable Disposition PACU [facility] Billing Surgery - Charge Forward: Surgery Billing
[2022-09-07 13:41] LABS: Glucose Point of Care 220 mg/dl (65-105)
[2022-09-07] MEDS: oxyCODONE HCL (*CRX) 5 MG TAB IR PO (14:00)
== END 2022-09-07 14:59 | disposition home or self-care (01) ==
PROVIDERS: PCP Family Medicine; Visit Provider Otolaryngology
PROC: (CPT 31254; principal; 2022-09-07 10:00)
PROC: (CPT 30520; 2022-09-07 10:00)
DX: J32.9 Chronic sinusitis, unspecified (principal); J95.88 Other intraoperative complications of respiratory system, not elsewhere classified; J34.2 Deviated nasal septum; J34.3 Hypertrophy of nasal turbinates; J34.89 Other specified disorders of nose and nasal sinuses; R51.9 Headache, unspecified; E11.9 Type 2 diabetes mellitus without complications; J44.9 Chronic obstructive pulmonary disease, unspecified; I10 Essential (primary) hypertension; E78.2 Mixed hyperlipidemia; G47.33 Obstructive sleep apnea (adult) (pediatric); G25.81 Restless legs syndrome; Z79.84 Long term (current) use of oral hypoglycemic drugs; E66.9 Obesity, unspecified; Z68.36 Body mass index [BMI] 36.0-36.9, adult; F17.210 Nicotine dependence, cigarettes, uncomplicated; Y65.8 Other specified misadventures during surgical and medical care
CPT/HCPCS: 31254; 31256; 30140; 30520; 61782; 82948; A9270; J0330; J0690; J1100; J1170; J1815; J2250; J2370; J2405; J2704; J3010; J7120

== ENCOUNTER 2023-02-16 13:19 | Outpatient (CLI) | payer OTHER, SELFPAY ==
[2023-02-16 13:41] LABS: Hematocrit 56.5 % (42.0-52.0); Hemoglobin 18.8 g/dL (14.0-18.0); Immature Platelet Fraction Pct 3.6 % (0.9-11.2); Mean Corpuscular HGB Conc 33.3 g/dl (32-36); Mean Corpuscular Hemoglobin 32.4 pg (26-34); Mean Corpuscular Volume 97.4 fl (80-100); Mean Platelet Volume 9.3 fl (7.4-10.4); Platelet Count Result 150 k/mm3 (150-375); Red Cell Distribution Width 12.6 % (11.5-14.5); White Blood Count 6.9 K/mm3 (4.5-10.0)
[2023-02-16 13:49] LABS: Hemoglobin A1C 6.6 % (<5.7)
[2023-02-16 13:56] LABS: Alanine Aminotransferase 36 U/L (6-50); Albumin Level 4.4 g/dL (3.5-5.1); Alkaline Phosphatase 96 U/L (38-126); Anion Gap 11 mmol/L (8-16); Aspartate Amino Transferase 35 U/L (17-59); Bilirubin,Total 0.8 mg/dL (0.2-1.3); Blood Urea Nitrogen 9 mg/dL (9-20); Calcium 9.4 mg/dL (8.4-10.2); Carbon Dioxide 26 mmol/L (22-30); Chloride 100 mmol/L (98-107); Cholesterol 141 mg/dL (0-200); Estimated Glomerular Filt Rate > 60; Glucose 132 mg/dL (65-110); HDL Direct 44 mg/dL; Potassium 4.4 mmol/L (3.4-5.0); Sodium 137 mmol/L (137-145); Triglycerides 345 mg/dL (<150)
[2023-02-16 14:06] LABS: LDL Cholesterol Direct 63 mg/dL
[2023-02-16 14:23] LABS: Prostate Specific Antigen 1.2 ng/mL (< OR = 4.0)
[2023-02-16 15:05] LABS: Creatinine Urine 66.2 mg/dL
[2023-02-16 20:10] LABS: MALB Creatinine Ratio 1684.3 mg/g (0-30)
== END 2023-02-16 13:20 | disposition home or self-care (01) ==
LOC: ANHLAB 13:20
PROVIDERS: PCP Family Medicine; Visit Provider Family Medicine
DX: E11.40 Type 2 diabetes mellitus with diabetic neuropathy, unspecified (principal); E11.65 Type 2 diabetes mellitus with hyperglycemia; E11.9 Type 2 diabetes mellitus without complications; E66.9 Obesity, unspecified; E78.2 Mixed hyperlipidemia; G25.81 Restless legs syndrome; I10 Essential (primary) hypertension; J44.9 Chronic obstructive pulmonary disease, unspecified; R53.83 Other fatigue
CPT/HCPCS: 36415; 80053; 80061; 82043; 83036; 84153; 85027; 85055; G0103

== ENCOUNTER 2023-06-06 09:03 | Outpatient (CLI) | payer OTHER, SELFPAY ==
[2023-06-06 09:44] LABS: CRP < 0.5 mg/dL (<1.0)
[2023-06-06 10:49] LABS: Erythrocyte Sedimentation Rate 1 mm/hr (0-20)
[2023-06-09 09:44] LABS: Immunoglobulin A 151 mg/dL (47-310)
== END 2023-06-06 09:04 | disposition home or self-care (01) ==
LOC: ANHLAB 09:05
PROVIDERS: PCP Family Medicine; Visit Provider Nurse Practitioner
DX: K52.9 Noninfective gastroenteritis and colitis, unspecified (principal)
CPT/HCPCS: 36415; 82784; 84443; 85652; 86140; 86364

== ENCOUNTER 2023-07-14 14:49 | Outpatient (CLI) | payer OTHER, SELFPAY ==
[2023-07-21 19:53] LABS: Pancreatic Elastase, Stool <15 mcg/g
[2023-07-21 23:19] LABS: Calprotectin, Stool 45 mcg/g
== END 2023-07-14 14:50 | disposition home or self-care (01) ==
LOC: ANHLAB 14:50
PROVIDERS: PCP Family Medicine; Visit Provider Nurse Practitioner
DX: K52.9 Noninfective gastroenteritis and colitis, unspecified (principal)
CPT/HCPCS: 82653; 83993

== ENCOUNTER 2023-10-26 01:57 | Day surgery (SDC) | payer OTHER, SELFPAY ==
[2023-10-04 11:36] VITALS: BMI 33.0
[2023-10-26 06:56] VITALS: BP 174/91; PULSE 110; RESP 18; TEMP 36.3; O2SAT 97
[2023-10-26 07:07] LABS: Glucose Point of Care 147 mg/dl (65-105)
[2023-10-26] MEDS: LACTATED RINGERS 1,000 ML 150 ML IV CONT (07:14)
--- NOTE | 2023-10-26 07:47 | WPDANESEPPF ---
Anes - Initial Pre Proc Eval Procedure: Operation Date: 10/26/23 08:00 Proposed Procedures p Colonoscopy - Frederic Webster MD Date/Time: 10/26/23 07:47 Surgeon: Frederic Webster MD Pre Op Diagnosis: gastroenteritis/colitis Patient Data Age: 57 Gender: M Height: 1.78 m Weight: 99.5 kg Last Vital Signs Temp 36.3 C L 10/26/23 06:56 Pulse 110 H 10/26/23 06:56 Resp 18 10/26/23 06:56 BP 174/91 H 10/26/23 06:56 Pulse Ox 97 10/26/23 06:56 Allergies Allergy/AdvReac Type Severity Reaction Status Date / Time gabapentin Allergy Severe lethargic Verified 09/07/23 13:01 Iodine and Iodide Containing Allergy Severe Anaphylactic Verified 09/07/23 13:01 Produc Shock pramipexole Allergy Severe Vomiting Verified 09/07/23 13:01 ropinirole Allergy Severe Vomiting Verified 09/07/23 13:01 Contrast Media Allergy Severe Anaphylactic Uncoded 07/04/23 15:33 Shock Home Medications Medication Instructions Recorded Confirmed Type omega 7-otg-aqr-fish oil 1,000 mg 2 cap PO DAILY 08/18/21 10/04/23 History (120 mg-180 mg) capsule (Fish Oil) alfuzosin 10 mg tablet,extended 10 mg PO DAILY #100 tabs 06/01/23 10/04/23 Rx release 24 hr finasteride 5 mg tablet 5 mg PO DAILY #90 tabs 06/01/23 10/04/23 Rx multivitamin 1 tablet PO DAILY 06/01/23 10/04/23 History tramadol 50 mg tablet 50 mg PO Q8H PRN pain #21 tabs 06/01/23 10/04/23 Rx glipizide 5 mg tablet 5 mg PO DAILY #90 tabs 07/11/23 10/04/23 Rx lipase 60,000-protease 1 cap PO .ac #240 caps 07/22/23 10/04/23 Rx 189,600-amylase 252,600 unit capsule, delay rel (Zenpep) atorvastatin 10 mg tablet See Rx Instructions .Route 08/16/23 10/04/23 Rx .COMPLEX #90 tabs lisinopril 10 mg tablet See Rx Instructions .Route 08/16/23 10/04/23 Rx .COMPLEX #90 tabs metformin 1,000 mg tablet 1,000 mg PO BID #180 tabs 09/05/23 10/04/23 Rx diphenoxylate-atropine 2.5 1 tablet PO DAILY PRN diarrhea #90 09/08/23 10/04/23 Rx mg-0.025 mg tablet tabs metoprolol succinate 50 mg 50 mg PO DAILY #90 tabs 09/12/23 10/04/23 Rx tablet,extended release 24 hr dulaglutide 3 mg/0.5 mL 3 mg (0.5 mL) subcut WEEKLY #2 mL 09/14/23 10/04/23 Rx subcutaneous pen injector (Trulicity) dulaglutide 1.5 mg/0.5 mL 1.5 mg (0.5 mL) subcut WEEKLY #2 mL 09/26/23 10/04/23 Rx subcutaneous pen injector (Trulicity) Metamucil 2 cap PO DAILY 10/04/23 10/04/23 History Laboratory Tests 10/26/23 07:03 POC Capillary Glucose 147 H mg/dl (65-105) Patient hx anesthesia problems: none Family hx anesthesia problems: none Results Review: All pre-operative results and documents have been reviewed as part of the pre-operative evaluation. [facility] Past Medical History Medical History COPD (chronic obstructive pulmonary disease) Diabetes Essential hypertension Hypertension Mixed hyperlipidemia Obesity PATITO (obstructive sleep apnea) PONV (postoperative nausea and vomiting) Restless legs syndrome Tobacco use Urine troubles Weight loss Surgical History Surgical History History of back surgery History of incision and drainage Incision and drainage complex right buttocks abscess 09/30/21 History of laminectomy History of tonsillectomy Status post laminectomy Family History Family History Sibling Family history of premature coronary heart disease Family history of chronic obstructive pulmonary disease Family history of diabetes mellitus in first degree relative Father Family history of chronic obstructive pulmonary disease, Onset Age: 78 Family history of coronary artery disease, Onset Age: 78 Patient's father is , Onset Age: 78 Grandparent Diabetes mellitus Social History Social History (Reviewed 10/26/23 @ 07:47 by Kulwinder Porter,
--- NOTE | 2023-10-26 07:48 | PM.HPGS ---
History of Present Illness History of Present Illness Consent: Risks, benefits, and alternatives have been discussed and questions answered. Patient agrees to proceed with procedure. Chief complaint: gastroenteritis/colitis Narrative: Leopoldo Yo is a 57 year old male here for first colonoscopy, chronic diarrhea and diagnosed with EPI now using creon which is helping some Review of Systems Review of Systems: All systems reviewed & are unremarkable except as noted in HPI and below PMFSH Past Medical History Medical History (Updated 10/26/23 @ 07:49 by Frederic Webster MD) Colon cancer screening COPD (chronic obstructive pulmonary disease) Diabetes Essential hypertension Hypertension Mixed hyperlipidemia Obesity PATITO (obstructive sleep apnea) PONV (postoperative nausea and vomiting) Restless legs syndrome Tobacco use Urine troubles Weight loss Surgical History Surgical History History of back surgery History of incision and drainage Incision and drainage complex right buttocks abscess 09/30/21 History of laminectomy History of tonsillectomy Status post laminectomy Family History Family History Sibling Family history of premature coronary heart disease Family history of chronic obstructive pulmonary disease Family history of diabetes mellitus in first degree relative Father Family history of chronic obstructive pulmonary disease, Onset Age: 78 Family history of coronary artery disease, Onset Age: 78 Patient's father is , Onset Age: 78 Grandparent Diabetes mellitus Social History Social History Smoking packs per day: 0.5 Smoking cigarettes per day: 10.0 Years smoked: 45 Smoking pack-years: 22.50 Smoking status: Current every day smoker Tobacco type: cigars Second hand tobacco smoke exposure: No Alcohol intake: current Drinks per week: 2 Alcohol use details: mixed drinks Substance use: current Substance use type: marijuana Other substance usage details: half a gummy hs for sleep Lack of Transportation: No Lack of Food: Never True Current Housing: I Have Housing Concerned About Future Housing: No Difficulty Paying Gas/Electric Bills: No Difficulty Paying for Meds: No Currently Unemployed: YES Education: High School Diploma/GED Difficulty w/ Childcare or Family Care: No Living arrangements: with family Gender identity (if verbalized by the patient): Male Spiritual care concerns: No Meds Home Medications and Allergies Home Medications Medication Instructions Recorded Confirmed Type omega 5-rur-ojl-fish oil 1,000 mg 2 cap PO DAILY 08/18/21 10/04/23 History (120 mg-180 mg) capsule (Fish Oil) alfuzosin 10 mg tablet,extended 10 mg PO DAILY #100 tabs 06/01/23 10/04/23 Rx release 24 hr finasteride 5 mg tablet 5 mg PO DAILY #90 tabs 06/01/23 10/04/23 Rx multivitamin 1 tablet PO DAILY 06/01/23 10/04/23 History tramadol 50 mg tablet 50 mg PO Q8H PRN pain #21 tabs 06/01/23 10/04/23 Rx glipizide 5 mg tablet 5 mg PO DAILY #90 tabs 07/11/23 10/04/23 Rx lipase 60,000-protease 1 cap PO .ac #240 caps 07/22/23 10/04/23 Rx 189,600-amylase 252,600 unit capsule, delay rel (Zenpep) atorvastatin 10 mg tablet See Rx Instructions .Route 08/16/23 10/04/23 Rx .COMPLEX #90 tabs lisinopril 10 mg tablet See Rx Instructions .Route 08/16/23 10/04/23 Rx .COMPLEX #90 tabs metformin 1,000 mg tablet 1,000 mg PO BID #180 tabs 09/05/23 10/04/23 Rx diphenoxylate-atropine 2.5 1 tablet PO DAILY PRN diarrhea #90 09/08/23 10/04/23 Rx mg-0.025 mg tablet tabs metoprolol succinate 50 mg 50 mg PO DAILY #90 tabs 09/12/23 10/04/23 Rx tablet,extended release 24 hr dulaglutide 3 mg/0.5 mL 3 mg (0.5 mL) subcut WEEKLY #2 mL 09/14/23 10/04/23 Rx subcutaneous pen
[2023-10-26 08:09] VITALS: BP 161/101; PULSE 108; RESP 14; O2SAT 97
[2023-10-26 08:19] VITALS: BP 146/91; PULSE 103; RESP 27; O2SAT 97
[2023-10-26 08:29] VITALS: BP 137/93; PULSE 99; RESP 20; O2SAT 95
== END 2023-10-26 08:33 | disposition home or self-care (01) ==
PROVIDERS: PCP Family Medicine; Visit Provider Internal Medicine Gastroenterology
PROC: 0DJD8ZZ Inspection of Lower Intestinal Tract, Via Natural or Artificial Opening Endoscopic (ICD-10-PCS; CPT 45378; principal; 2023-10-26 08:00)
DX: D12.3 Benign neoplasm of transverse colon (principal); K57.30 Diverticulosis of large intestine without perforation or abscess without bleeding; K86.81 Exocrine pancreatic insufficiency; J44.9 Chronic obstructive pulmonary disease, unspecified; E11.9 Type 2 diabetes mellitus without complications; I10 Essential (primary) hypertension; E78.2 Mixed hyperlipidemia; G47.33 Obstructive sleep apnea (adult) (pediatric); G25.81 Restless legs syndrome; F17.210 Nicotine dependence, cigarettes, uncomplicated; F12.90 Cannabis use, unspecified, uncomplicated; Z79.84 Long term (current) use of oral hypoglycemic drugs; Z79.85 Long-term (current) use of injectable non-insulin antidiabetic drugs; E66.9 Obesity, unspecified; Z68.31 Body mass index [BMI] 31.0-31.9, adult
CPT/HCPCS: 45385; 45380; 82948; 88305; J2001; J2704; J7120

== ENCOUNTER 2023-12-01 14:42 | Outpatient (CLI) | payer OTHER, SELFPAY ==
[2023-12-01 15:09] LABS: Hematocrit 56.7 % (42.0-52.0); Hemoglobin 19.7 g/dL (14.0-18.0); Immature Platelet Fraction Pct 2.7 % (0.9-11.2); Mean Corpuscular HGB Conc 34.7 g/dl (32-36); Mean Corpuscular Hemoglobin 33.4 pg (26-34); Mean Corpuscular Volume 96.3 fl (80-100); Mean Platelet Volume 9.5 fl (7.4-10.4); Platelet Count Result 139 k/mm3 (150-375); Red Blood Count 5.89 M/mm3 (4.6-6.20); Red Cell Distribution Width 13.2 % (11.5-14.5); White Blood Count 5.9 K/mm3 (4.5-10.0)
[2023-12-01 15:20] LABS: Cholesterol 134 mg/dL (0-200); HDL Direct 44 mg/dL; Triglycerides 314 mg/dL (<150)
[2023-12-01 15:21] LABS: Alanine Aminotransferase 29 U/L (6-50); Albumin Level 4.3 g/dL (3.5-5.1); Alkaline Phosphatase 72 U/L (38-126); Amylase 199 U/L (30-110); Anion Gap 11 mmol/L (4-12); Aspartate Amino Transferase 31 U/L (17-59); Bilirubin,Total 0.7 mg/dL (0.2-1.3); Blood Urea Nitrogen 11 mg/dL (9-20); Calcium 9.5 mg/dL (8.4-10.2); Carbon Dioxide 27 mmol/L (22-30); Chloride 99 mmol/L (98-107); Estimated Glomerular Filt Rate > 60; Glucose 90 mg/dL (65-110); Lipase 899 U/L (23-300); Potassium 4.1 mmol/L (3.4-5.0); Sodium 137 mmol/L (137-145)
[2023-12-01 15:24] LABS: Hemoglobin A1C 5.9 % (<5.7)
[2023-12-01 15:31] LABS: LDL Cholesterol Direct 57 mg/dL
[2023-12-01 15:51] LABS: Creatinine Urine 92.7 mg/dL
[2023-12-01 17:55] LABS: MALB Creatinine Ratio > 1229.8 mg/g (0-30); Microalbumin Urine Random > 1140.0 mg/L (0-16.7)
== END 2023-12-01 14:43 | disposition home or self-care (01) ==
LOC: ANHLAB 14:45
PROVIDERS: PCP Family Medicine; Visit Provider Nurse Practitioner Family
DX: E11.9 Type 2 diabetes mellitus without complications (principal); K52.9 Noninfective gastroenteritis and colitis, unspecified; K86.81 Exocrine pancreatic insufficiency; R63.4 Abnormal weight loss
CPT/HCPCS: 36415; 80053; 80061; 82043; 82150; 83036; 83690; 85027; 85055

== ENCOUNTER 2024-03-07 14:08 | Outpatient (CLI) | payer OTHER, SELFPAY ==
--- NOTE | ~2024-03-07 | US_ITS ---
Limited ABDOMINAL ULTRASOUND Ordering provider: Virginia Aguilera APRN History: . EPI, elevated lipase and amylase . Comparison: None. FINDINGS: LIVER: Normal size and increased echotexture suggestive of fat infiltration. No focal hepatic lesions or perihepatic fluid collections are identified. Portal vein flow is normal. GALLBLADDER: Unremarkable. No evidence for stones, sludge, gallbladder wall thickening or pericholecy stic fluid collections. Wall thicknesses 0.3 cm. A negative sonographic Richards's sign was noted. BILIARY DUCTS: No evidence for intra or extrahepatic biliary dilation. Common bile duct measures 3 mm in diameter which is within normal limits. PANCREAS: Not visualized. UPPER ABDOMINAL AORTA: Normal in caliber. IVC: Patent. FREE FLUID: None. IMPRESSION: Fat infiltration of the liver. Otherwise, Unremarkable limited ultrasound of the abdomen. Reviewed, dictated and finalized at location A. GE WORKER APPRENTICE IMPRESSION: Fat infiltration of the liver. Otherwise, Unremarkable limited ultrasound of th e abdomen.
[2024-03-07 14:29] LABS: Hematocrit 52.4 % (42.0-52.0); Hemoglobin 18.1 g/dL (14.0-18.0); Mean Corpuscular HGB Conc 34.5 g/dl (32-36); Mean Corpuscular Hemoglobin 33.7 pg (26-34); Mean Corpuscular Volume 97.6 fl (80-100); Mean Platelet Volume 9.7 fl (7.4-10.4); Platelet Count Result 127 k/mm3 (150-375); Red Blood Count 5.37 M/mm3 (4.6-6.20); Red Cell Distribution Width 13.3 % (11.5-14.5); White Blood Count 6.2 K/mm3 (4.5-10.0)
[2024-03-07 14:41] LABS: INR 0.9; Prothrombin Time 12.8 Seconds (11.1-14.7)
[2024-03-07 16:14] LABS: Alanine Aminotransferase 23 U/L (6-50); Albumin Level 4.1 g/dL (3.5-5.1); Alkaline Phosphatase 59 U/L (38-126); Amylase 207 U/L (30-110); Anion Gap 2 mmol/L (4-12); Aspartate Amino Transferase 29 U/L (17-59); Bilirubin,Total 0.4 mg/dL (0.2-1.3); Blood Urea Nitrogen 12 mg/dL (9-20); CRP < 0.5 mg/dL (<1.0); Calcium 9.8 mg/dL (8.4-10.2); Carbon Dioxide 32 mmol/L (22-30); Chloride 106 mmol/L (98-107); Estimated Glomerular Filt Rate > 60; Glucose 141 mg/dL (65-110); Lipase 837 U/L (23-300); Potassium 4.1 mmol/L (3.4-5.0); Sodium 140 mmol/L (137-145)
== END 2024-03-07 14:09 | disposition home or self-care (01) ==
PROVIDERS: PCP Family Medicine; Visit Provider Nurse Practitioner
DX: K86.81 Exocrine pancreatic insufficiency (principal); R74.8 Abnormal levels of other serum enzymes; K52.9 Noninfective gastroenteritis and colitis, unspecified; K75.81 Nonalcoholic steatohepatitis (NASH)
CPT/HCPCS: 36415; 76705; 80053; 82150; 83690; 85027; 85610; 86140

== ENCOUNTER 2024-05-30 14:26 | Outpatient (CLI) | payer OTHER, SELFPAY ==
[2024-05-30 15:02] LABS: Hematocrit 53.3 % (42.0-52.0); Hemoglobin 18.2 g/dL (14.0-18.0); Mean Corpuscular HGB Conc 34.1 g/dl (32-36); Mean Corpuscular Hemoglobin 33.2 pg (26-34); Mean Corpuscular Volume 97.1 fl (80-100); Mean Platelet Volume 9.7 fl (7.4-10.4); Platelet Count Result 121 k/mm3 (150-375); Red Blood Count 5.49 M/mm3 (4.6-6.20); Red Cell Distribution Width 13.1 % (11.5-14.5); White Blood Count 6.1 K/mm3 (4.5-10.0)
[2024-05-30 15:11] LABS: INR 0.9; Prothrombin Time 12.8 Seconds (11.1-14.7)
[2024-05-30 15:16] LABS: Alanine Aminotransferase 30 U/L (6-50); Albumin Level 4.5 g/dL (3.5-5.1); Alkaline Phosphatase 79 U/L (38-126); Amylase 308 U/L (30-110); Anion Gap 11 mmol/L (4-12); Aspartate Amino Transferase 28 U/L (17-59); Bilirubin,Total 0.6 mg/dL (0.2-1.3); Blood Urea Nitrogen 16 mg/dL (9-20); Calcium 9.3 mg/dL (8.4-10.2); Carbon Dioxide 29 mmol/L (22-30); Chloride 101 mmol/L (98-107); Estimated Glomerular Filt Rate > 60; Glucose 94 mg/dL (65-110); Sodium 141 mmol/L (137-145)
[2024-05-30 15:28] LABS: Iron 102 ug/dL (49-181)
[2024-05-30 15:37] LABS: Percent Iron Saturation 27 % (20-50)
[2024-05-30 15:39] LABS: Lipase 3838 U/L (23-300)
[2024-05-30 15:48] LABS: Hepatitis B Surface Antigen Negative (Negative)
[2024-05-30 15:54] LABS: HAV RESULT Negative (Negative); Hepatitis B Core IgM Result Negative (Negative)
[2024-05-30 16:05] LABS: Hepatitis C Virus Antibody Negative (Negative)
[2024-05-30 16:20] LABS: Immunoglobulin G 982 mg/dL (700-1600)
--- OUTSIDE RECORDS SUMMARY | 2024-05-30 16:21 | XMS_ITS | Patient Health Summary ---
Author Organization [facility] Address [address] [place] [address] Care Team Providers Care Gwot Ia[employer] Intelligence Support Name Role Phone Hoang Bernal MD Primary Care Provider [phone] Note from [facility],non-owned Affiliates and Associated Physician Practices is amultiple site organization consisting of ambulatory clinics and hospital sitesin [place], [place], [place] and [place]. This disclosure is being madepursuant to the Care Everywhere program and may not contain all information available regarding this patient. Last updated 17.[facility] Allergies * Bee Venom(Anaphylaxis) -High Criticality * Contrast-Iodinated Agents For Ct/Other(Anaphylaxis) -High Criticality * Pramipexole(Vomiting) -Medium Criticality * Ropinirole(Vomiting) -Medium Criticality * Green Dye(Other),Inactive Medications * Be aware that medications may not be up to date on this document. Alwaysverify current medications with the patient. * metFORMIN (Glucophage) 1000 MG tablet(Started 11/27/2023) Take 1 (one) tablet by mouth 2 times daily * metoprolol succinate XL 24hr (Toprol XL) 50 MG tablet Take 1 (one) tablet by mouth once daily * Zenpep [id number] units CPEP(Started 12/21/2023) TAKE 1 CAPSULE BY MOUTH BEFORE SMALLER MEALS AND 2 CAPSULES BEFORE LARGE MEALS. 1 CAPSULE WITH SNACKS. * lisinopril (Prinivil; Zestril) 20 MG tablet(Started 12/07/2023) Take 1 (one) tablet by mouth once daily * glipiZIDE (Glucotrol) 5 MG tablet(Started 01/06/2024) Take 1 (one) tablet by mouth every morning * finasteride (Proscar) 5 MG tablet(Started 11/22/2023) Take 1 (one) tablet by mouth once daily * diphenoxylate-atropine (Lomotil) 2.5-0.025 MG tablet(Started 02/07/2024) * atorvastatin (Lipitor) 10 MG tablet Take 1 (one) tablet by mouth once daily * Ascorbic Acid 1000 MG * buPROPion SR 12hr (Wellbutrin-SR) 150 MG tablet Take 1 (one) tablet by mouth 2 times daily * predniSONE (Deltasone) 50 MG tablet(Started 03/20/2024) TAKE 1 TABLET BY MOUTH 13 HOURS PRIOR TO EXAM, THEN 50 MG 7 HOURS PRIOR TO EXAM, THEN 1 HOUR PRIOR TO EXAM * cholestyramine (Questran) 4 g packet(Started 03/09/2024) DISSOLVE & MIX 1 PACKET IN LIQUID AND DRINK BY MOUTH ONCE DAILY AVOID OTHER MEDS WITHIN 1 HOUR BEFORE OR 4-6 HOURS AFTER DOSE * Trulicity 3 MG/0.5ML injection(Started 04/02/2024) INJECT 1 SYRINGE SUBCUTANEOUSLY ONCE A WEEK Active Problems No known active problems Social History Tobacco Use Types Packs/Day Years Used Date Smoking Tobacco: Every Day Cigarettes 0.5 48.2 Started: 1978 Smokeless Tobacco: Never Tobacco Cessation:Ready to Q uit: Not Asked; Counseling Given: Not Answered Alcohol Use Standard Drinks/Week Comments Yes 0 (1 standard drink = 0.6 oz pur e alcohol) AUDIT-C Answer Date Recorded Q1: How often do you have a drink containing alcohol? Never 04/12/2024 Q2: How many drinks containi ng alcohol do you have on a typical day when you are drinking? Patient does not drink Q3: How often do you have si x or more drinks on one occasion? Never 04/12/2024 Sex and Gender Information Value Date Recorded Sex Assigned at Not on file Gender Identity Not on file Sexual Orientation Not on file Last Filed Vital Signs Vital Sign Reading Time Taken Comments Blood Pressure 145/76 04/12/2024 11:39 AM PIE CRIMPING MACHINE OPERATOR Pulse 88 04/12/2024 11:39 AM PIE CRIMPING MACHINE OPERATOR Temperature 36.6 C (97.9 F) 04/12/2024 11:29 AM PIE CRIMPING MACHINE OPERATOR Respiratory Rate 16 04/12/2024 11:39 AM PIE CRIMPING MACHINE OPERATOR Oxygen Saturation 94% 04/12/2024 11:39 AM PIE CRIMPING MACHINE OPERATOR Inhaled Oxygen Concentration - - Weight 100.2 kg (221 lb) 04/12/2024 8:49 AM PIE CRIMPING MACHINE OPERATOR Height 172.7 cm (5' 8 ) 04/12/2024 8:49 AM PIE CRIMPING MACHINE OPERATOR Body Mass Index 33.6 04/12/2024 8:49 AM PIE CRIMPING MACHINE OPERATOR Medical Devices Implanted Type Area Can Crimper Device Identifier Shelf Expiration Date Model / Serial / Lot Clareon Uv Iol [id number] +18.0 D Implanted:Qty: 1 on 03/29/2024 by Portillo Ward MD at [facility] Right: Eye Wilner Chobani 07/19/2027 [id number] +18.0 D / [id number] / N/A Clareon Iol [id number] 18.5 Implanted:Qty: 1 on 04/12/2024 by Portillo Ward MD at [facility] Left: Eye 08/07/2027 CCA0T0 / [id number] / Procedures * GLUCOSE - POINT OF CARE(Performed 04/12/2024) * NH REMV CATARACT EXTRACAP,INSRT LENS,COMPLX(Performed 04/12/2024) Performed for Combined forms of age-related cataract of both eyes * NH REMV CATARACT EXTRACAP,INSERT LENS(Performed 04/12/2024) Performed for Combined forms of age-related cataract of both eyes * GLUCOSE - POINT OF CARE(Performed 04/12/2024) * NH REMV CATARACT EXTRACAP,INSRT LENS,COMPLX(Performed 03/29/2024) Performed for Combined forms of age-related cataract of both eyes * NH REMV CATARACT EXTRACAP,INSERT LENS(Performed 03/29/2024) Performed for Combined forms of age-related cataract of both eyes * GLUCOSE - POINT OF CARE(Performed 03/29/2024) * IOL MASTER(Performed 02/29/2024) Performed for Combined forms of age-related cataract of both eyes Results * GLUCOSE - POINT OF CARE (04/12/2024 11:33 AM PIE CRIMPING MACHINE OPERATOR) Only the most recent of3 resultswithin the time period is included. Glucose WB/POC 99 70 - 99 mg/dL 04/18/2024 7:45 AM PIE CRIMPING MACHINE OPERATOR [facility] Specimen Type Cap Fingerstick 2024 7:45 AM PIE CRIMPING MACHINE OPERATOR [facility] Blood BLOOD SPECIMEN / Unknown 04/12/2024 11:33 AM PIE CRIMPING MACHINE OPERATOR 04/18/2024 7:44 AM PIE CRIMPING MACHINE OPERATOR Portillo Ward MD LAB - POINT OF CARE ORDERABLES [facility] [address] [place] [id number], [facility] [phone] * IOL MASTER (02/29/2024 1:14 PM PIE CRIMPING MACHINE OPERATOR) Anatomical Region Laterality Modality External-Camera Photography Narrative 03/02/2024 10:24 AM PIE CRIMPING MACHINE OPERATOR Images from the original result were not included. AL in good agreement Biometry was performed and reviewed for IOL power calculation using IOL master for lens selection during surgery. Portillo Ward MD OPHTHALMOLOGY SCHED ORD W PACS Care Teams [employer] Support Relationship Specialty Start Date End Date Hoang Bernal MD [address] [place] [address] PCP - General Family Medicine 02/09/24
--- OUTSIDE RECORDS SUMMARY | 2024-05-30 16:21 | XMS_ITS | Clinical Summary ---
Author Organization [facility] [employer] Address [address] [place] [address] Care Team Providers Care Stencil Printer Name Role Phone Hoang Bernal MD Primary Care Provider [phone] Source Comments [facility] [employer],non-owned Affiliates and Associated Physician Practices is amultiple site organization consisting of ambulatory clinics and hospital sitesin [place], [place], [place] and [place]. This disclosure is being madepursuant to the Care Everywhere program and may not contain all information available regarding this patient. Last updated 17.[facility] [employer] Allergies Active Allergy Reactions Criticality Noted Date Comments Bee Venom Anaphylaxis High 03/22/2024 'YELLOW JACKETS Contrast-Iodinated Agents Fo r Ct/Other Anaphylaxis High 07/07/2017 Pramipexole Vomiting Medium 02/12/2019 Ropinirole Vomiting Medium 02/12/2019 Medications * Be aware that medications may not be up to date on this document. Alwaysverify current medications with the patient. Medication Sig Dispensed Refills Start Date End Date Status metFORMIN (Glucophage) 1000 MG tablet Take 1 (one) tablet by mouth 2 times daily 11/27/2023 Active metoprolol succinate XL 24hr (Toprol XL) 50 MG tablet Take 1 (one) tablet by mouth once daily Active Zenpep 35085-309619 units CPEP TAKE 1 CAPSULE BY MOUTH BEFORE SMALLER MEALS AND 2 CAPSULES BEFORE LARGE MEALS. 1 CAPSULE WITH SNACKS. 12/21/2023 Active lisinopril (Prinivil; Zestril) 20 MG tablet Take 1 (one) tablet by mouth once daily 12/07/2023 Active glipiZIDE (Glucotrol) 5 MG tablet Take 1 (one) tablet by mouth every morning 01/06/2024 Active finasteride (Proscar) 5 MG tablet Take 1 (one) tablet by mouth once daily 11/22/2023 Active diphenoxylate-atro pine (Lomotil) 2.5-0.025 MG tablet 02/07/2024 Active atorvastatin (Lipitor) 10 MG tablet Take 1 (one) tablet by mouth once daily Active Ascorbic Acid 1000 MG Active buPROPion SR 12hr (Wellbutrin-SR) 150 MG tablet Take 1 (one) tablet by mouth 2 times daily Active predniSONE (Deltasone) 50 MG tablet TAKE 1 TABLET BY MOUTH 13 HOURS PRIOR TO EXAM, THEN 50 MG 7 HOURS PRIOR TO EXAM, THEN 1 HOUR PRIOR TO EXAM 03/20/2024 Active cholestyramine (Questran) 4 g packet DISSOLVE & MIX 1 PACKET IN LIQUID AND DRINK BY MOUTH ONCE DAILY AVOID OTHER MEDS WITHIN 1 HOUR BEFORE OR 4-6 HOURS AFTER DOSE 03/09/2024 Active Trulicity 3 MG/0.5ML injection INJECT 1 SYRINGE SUBCUTANEOUSLY ONCE A WEEK 04/02/2024 Active Active Problems No known active problems Encounters Date Type Department Care Team Description 05/11/2024 1:40 PM FIELD RADIO OPERATOR [facility] [address] [place] [address] [phone] S/P eye surgery CEIOL OD:(CCA0T0 +18.0 D), 03/29/2024 OS:(CCA0T0 +18.5 D), 04/12/2024 (Primary Dx); Pseudophakia; Type 2 diabetes mellitus without retinopathy (HCC) 05/11/2024 Travel 04/20/2024 2:20 PM FIELD RADIO OPERATOR Office Visit [facility] - Ophthalmology [address] [place] [address] [phone] S/P eye surgery CEIOL OD:(CCA0T0 +18.0 D), 03/29/2024 OS:(CCA0T0 +18.5 D), 04/12/2024 (Primary Dx) 04/20/2024 Travel 04/13/2024 9:30 AM FIELD RADIO OPERATOR Office Visit [facility] - Ophthalmology [address] [place] [phone] Portillo Ward MD S/P eye surgery CEIOL OD:(CCA0T0 +18.0 D), 03/29/2024 OS:(CCA0T0 +18.5 D), 04/12/2024 (Primary Dx) 04/13/2024 Travel 04/12/2024 10:40 AM FIELD RADIO OPERATOR - 04/12/2024 11:45 AM FIELD RADIO OPERATOR Surgery [facility] [address] [place] [phone] Portillo Ward MD Cataract extraction with intraocular lens implantation, LEFT EYE 04/12/2024 10:38 AM FIELD RADIO OPERATOR Anesthesia Event [facility] [address] [place] [phone] Abel Butts MD Rinderer, Mallory, LINOLEUM LAYER HELPER-LABORATORY EQUIPMENT CLEANER 04/12/2024 8:29 AM FIELD RADIO OPERATOR - 04/12/2024 12:00 PM FIELD RADIO OPERATOR Hospital Encounter [facility] [address] [place] [phone] Portillo Ward MD Surgery General Discharge Disposition: Home or Self Care 04/12/2024 Travel 04/04/2024 9:00 AM FIELD RADIO OPERATOR Office Visit [facility]mology [address] [place] [phone] Portillo Ward MD S/P eye surgery (CCA0T0 +18.0 D), right eye 03/29/2024 (Primary Dx) 04/04/2024 Travel 03/30/2024 Telephone [facility] [address] [place] [phone] Portillo Ward MD Appointment 03/29/2024 8:44 AM FIELD RADIO OPERATOR Anesthesia Event [facility] [address] [place] [phone] Anthony Gaston MD Rinderer, Mallory, LINOLEUM LAYER HELPER-LABORATORY EQUIPMENT CLEANER 03/29/2024 8:30 AM FIELD RADIO OPERATOR - 03/29/2024 9:35 AM FIELD RADIO OPERATOR Surgery [facility] [address] [place] [phone] Portillo Ward MD Cataract extraction with intraocular lens implantation, RIGHT EYE 03/29/2024 6:40 AM FIELD RADIO OPERATOR - 03/29/2024 10:00 AM FIELD RADIO OPERATOR Hospital Encounter [facility] [address] [place] [phone] Portillo Ward MD Surgery General Discharge Disposition: Home or Self Care 03/29/2024 Travel from Last 3 Months Social History Tobacco Use Types Packs/Day Years [...] Comments Blood Pressure 145/76 04/12/2024 11:39 AM FIELD RADIO OPERATOR Pulse 88 04/12/2024 11:39 AM FIELD RADIO OPERATOR Temperature 36.6 C (97.9 F) 04/12/2024 11:29 AM FIELD RADIO OPERATOR Respiratory Rate 16 04/12/2024 11:39 AM FIELD RADIO OPERATOR Oxygen Saturation 94% 04/12/2024 11:39 AM FIELD RADIO OPERATOR Inhaled Oxygen Concentration - - Weight 100.2 kg (221 lb) 04/12/2024 8:49 AM FIELD RADIO OPERATOR Height 172.7 cm (5' 8 ) 04/12/2024 8:49 AM FIELD RADIO OPERATOR Body Mass Index 33.6 04/12/2024 8:49 AM FIELD RADIO OPERATOR Plan of Treatment Upcoming Encounters Date Type Department Care Team (Late st Contact Info) Description 07/17/2024 2:15 PM CDT Office Visit [facility] - [facility]mology [address] [place] [phone] Fly Redding MD [address] [place], [place] [address]VD [facility] [place] [phone] Health Maintenance Due Date Last Done Comments COLOGUARD (AGES 45-75) - COL ON CA SCREENING 1965 COLON MONITORING 1963 COLONOSCOPY - COLON CA SCREENING 1963 CT COLONOGRAPHY - COLON CA SCREENING 1963 Colorectal Cancer Screening 1965 FIT - COLON CA SCREENING 1963 FLEX SIG - COLON CA SCREENING 1963 HIV SCREENING 11/16/1978 HEPATITIS C SCREENING 11/12/1981 DTAP/TDAP/TD VACCINES (1 - Tdap) 11/16/1982 PNEUMOCOCCAL VACCINE 50+ (1 of 2 - PCV) 11/16/1982 LUNG CANCER SCREENING 11/16/2013 ZOSTER VACCINE (1 of 2) 11/16/2013 COVID-19 VACCINE (3 - 2023-2 5 season) 2023 06/23/2020, 05/30/2020 INFLUENZA VACCINE (#1) 2023 DEPRESSION SCREENING 03/21/2024 SCREENING FOR DIABETES 04/12/2027 , 04/12/2024, 03/29/2024 Respiratory Syncytial Virus (RSV) Vaccine Pt: or over 60 yrs (1 - 1-dose 75+ series) 11/16/2038 HEPATITIS B VACCINE Aged Out No longe r eligible based on patient's age to complete this topic HIB VACCINE Aged Out No longer eligi ble based on patient's age to complete this topic HPV VACCINE Aged Out No longer eligi ble based on patient's age to complete this topic MENINGOCOCCAL (Group B) VACCINE SHARED DECISION-MAKING Aged Out No longer eligible based on patient's age to complete this topic MENINGOCOCCAL GROUPS A/C/Y/W VACCINE Aged Out No longer eligible b ased on patient's age to complete this topic Medical Devices Implanted Type Area Banquet Supervisor Device Identifier Shelf Expiration Date Model / Serial / Lot Clareon Uv Iol [id number] +18.0 D Implanted:Qty: 1 on 03/29/2024 by Portillo Ward MD at [facility] Right: Eye [employer] 07/19/2027 CCA0T0 +18.0 D / [id number] / N/A Clareon Iol [id number] 18.5 Implanted:Qty: 1 on 04/12/2024 by Portillo Ward MD at [facility] Left: Eye 08/07/2027 CCA0T0 / [id number] 2 / Procedures Procedure Name Priority Date/Time Associated Diagnosis Comments GLUCOSE - POINT OF CARE Routine 04/12/2024 11:33 AM FIELD RADIO OPERATOR MO REMV CATARACT EXTRACAP,INSRT LENS,COMPLX 04/12/2024 10:37 AM FIELD RADIO OPERATOR Combined forms of age-related cataract of both eyes Special Needs SUPINE, [place] LOCAL MO REMV CATARACT EXTRACAP,INSERT LENS 04/12/2024 10:37 AM FIELD RADIO OPERATOR Combined forms of age-related cataract of both eyes Special Needs SUPINE, [facility] [place] [place] LOCAL GLUCOSE - POINT OF CARE Routine 04/12/2024 8:51 AM FIELD RADIO OPERATOR MO REMV CATARACT EXTRACAP,INSRT LENS,COMPLX 03/29/2024 8:39 AM FIELD RADIO OPERATOR Combined forms of age-related cataract of both eyes Special Needs SUPINE, [facility] LOCAL MO REMV CATARACT EXTRACAP,INSERT LENS 03/29/2024 8:39 AM FIELD RADIO OPERATOR Combined forms of age-related cataract of both eyes Special Needs SUPINE, [facility] [place] [place] LOCAL GLUCOSE - POINT OF CARE Routine 03/29/2024 7:31 AM FIELD RADIO OPERATOR from Last 3 Months Results * GLUCOSE - POINT OF CARE (04/12/2024 11:33 AM FIELD RADIO OPERATOR) Only the most recent of3 resultswithin the time period is included. Glucose WB/POC 99 70 - 99 mg/dL 04/18/2024 7:45 AM FIELD RADIO OPERATOR [facility] Specimen Type Cap Fingerstick 2024 7:45 AM FIELD RADIO OPERATOR [facility] Blood BLOOD SPECIMEN / Unknown 04/12/2024 11:33 AM FIELD RADIO OPERATOR 04/18/2024 7:44 AM FIELD RADIO OPERATOR Portillo Ward MD LAB - POINT OF CARE ORDERABLES [place] [address] [place] [address], [facility] [phone] from Last 3 Months Care Teams Stencil Printer Relationship Specialty Start Date End Date Hoang Bernal MD [address] [place] [address] PCP - General Family Medicine 02/09/24
--- OUTSIDE RECORDS SUMMARY | 2024-05-30 16:21 | XMS_ITS | Clinical Summary ---
Author Organization [facility] Address [address] [place] [address] Phone Care Team Providers Care Retail Merchandiser Technician Name Role Phone Keyshawn Bobo DO Primary Care Provider [phone] Allergies Active Allergy Reactions Criticality Noted Date Comments Amitriptyline Other (see Comments) 02/12/2019 lethargic Iodinated Contrast Media Anaphylaxis 07/07/2017 Gabapentin Other (see Comments) 02/12/2019 lethargic Pramipexole Vomiting 02/12/2019 Ropinirole Vomiting 02/12/2019 Medications lisinopril (PRINIVIL, ZESTRIL) 10 MG Tablet Take 10 mg by mouth daily. Active atorvastatin (LIPITOR) 10 MG Tablet Take 10 mg by mouth daily. Active Multiple Vitamin (MULTIVITAMIN PO) Take by mouth. Activ e alfuzosin (UROXATRAL) 10 MG TABLET SR 24 HR TAKE 1 TABLET BY MOUTH ONCE DAILY 2 Active metFORMIN (GLUCOPHAGE) 1000 MG Tablet Take 1,000 mg by mouth 2 times daily. 2 Active glipiZIDE (GLUCOTROL) 5 MG Tablet TAKE 1 TABLET BY MOUTH IN THE MORNING 2 Active Azelastine HCl 137 MCG/SPRAY Solution USE 1 SPRAY(S) IN EACH NOSTRIL EVERY 12 HOURS 3 Active fluticasone (FLONASE) 50 MCG/ACT Suspension USE 1 TO 2 SPRAY(S) IN EACH NOSTRIL TWICE DAILY 3 Active Trulicity 0.75 MG/0.5ML Solution Pen-injector INJECT 0.75MG SUBCUTANEOUSLY ONCE A WEEK FOR 4 WEEKS THEN INCREASE TO 1.5MG ONCE WEEKLY FOR 4 WEEKS 4 Active metoprolol Succinate (TOPROL-XL) 50 MG TABLET SR 24 HR Take 50 mg by mouth daily. 4 Active Active Problems Problem Noted Date Diagnosed Date Secondary polycythemia 07/07/2017 Immunizations Immunization Administration Dates Next Due Covid-19, Mrna, Lnp-s, Pf, 30 Mcg/0.3 Ml Dose (P fizer) 06/23/2020,05/30/2020 Family History Medical History Relation Name Comments Cancer Father Cancer Paternal Aunt Relation Name Status Comments Father bladder cancer Paternal Aunt colon cancer Social History Tobacco Use Types Packs/Day Years Used Date Smoking Tobacco: Every Day Cigarettes Smokeless Tobacco: Never Tobacco Cessation:Ready to Q uit: No; Counseling Given: Yes Alcohol Use Standard Drinks/Week Comments Yes 0 (1 standard drink = 0.6 oz pur e alcohol) rare PHQ-2 Answer Date Recorded Total Score - Questions 1-9 0 08/19 Sexually Active Control Partners Comments Not Currently Sex and Gender Information Value Date Recorded Sex Assigned at Not on file Legal Sex Male 2:06 PM CDT Gender Identity Not on file Sexual Orientation Not on file Last Filed Vital Signs Vital Sign Reading Time Taken Comments Blood Pressure 138/84 09/01/2023 2:24 PM CDT Pulse 102 09/01/2023 2:24 PM CDT Temperature 36.7 C (98 F) 09/01/2023 2:24 PM CDT Respiratory Rate 18 09/01/2023 2:24 PM CDT Oxygen Saturation 96% 09/01/2023 2:24 PM CDT Inhaled Oxygen Concentration - - Weight 104 kg (229 lb 3.2 oz) 09/01/2023 2:24 PM CDT Height 175.3 cm (5' 9 ) 09/01/2023 2:24 PM CDT Body Mass Index 33.85 09/01/2023 2:24 PM CDT Plan of Treatment Upcoming Encounters Date Type Department Care Team (Late st Contact Info) Description 08/30/2024 2:00 PM CDT Office Visit [facility] [address] [phone] Kwame Peres MD [address] [place] [address] Health Maintenance Due Date Last Done Comments Hepatitis C Virus (HCV) Screening 1965 TdaP Immunization 1965 Pneumococcal Immunization Combined (1 of 2 - PCV) 11/16/1969 Pneumococcal Immunization (5 0+ years) (1 of 2 - PCV) 11/16/1982 Colonoscopy 11/16/2008 Colorectal Cancer Screening 11/16/2008 Cologuard 11/16/2013 Immunochemical Fecal Occult Blood 11/16/2013 Zoster Immunization (1 of 2) 11/16/2013 PSA Discussion 11/16/2018 Influenza Immunization (#1) 2023 SARS-COV-2 Immunization ( season) 2023 06/23/2020, 05/30/2020 Respiratory Syncytial Virus (RSV) Immunization (Adult) (1 - 1-dose 75+ series) 11/16/2038 Hepatitis B Immunization Aged Out No longer eligible based on patient's age to complete this topic Meningococcal Immunization (ACWY) Aged Out No longer eligible b ased on patient's age to complete this topic Rotavirus Immunization Aged Out No lo nger eligible based on patient's age to complete this topic Insurance MEDICAID [employer] Care Teams Retail Merchandiser Technician Relationship Specialty Start Date End Date Keyshawn Bobo DO [address] [address] PCP - General Internal Medicine 09/04/20
--- OUTSIDE RECORDS SUMMARY | 2024-05-30 16:21 | XMS_ITS | Clinical Summary ---
Author Organization [facility] Address [facility] [place] [address] Care Team Providers Care Die Cast Supervisor Name Role Phone Nader Richardson MD Primary Care Provider Allergies Active Allergy Reactions Criticality Noted Date Comments Amitriptyline Other (see comment) 02/12/2019 lethargic Gabapentin Other (see comment) 02/12/2019 lethargic Iodinated Contrast Media Anaphylaxis High 07/07/2017 Pramipexole Vomiting 02/12/2019 Ropinirole Vomiting 02/12/2019 Medications vitamin C 1000 MG tablet Active cholecalciferol (VITAMIN D-[address]) 25 MCG (1000 UT) Tab tablet Take 1,000 Units by mouth daily. Active omega-3 fatty acid 1000 MG capsuleIndications :Essential hypertension Take 4 capsules (4,000 mg total) by mouth daily. 120 capsule 3 9 Active Blood Glucose Monitoring Suppl (iVideosongs VERIO) w/Device KitIndications:Typ e 2 diabetes mellitus with diabetic neuropathy, with long-term current use of insulin ([facility]) Use to check blood sugar twice daily. 1 kit 9 Active fluticasone propionate 50 MCG/ACT nasal spray 1-2 sprays by Nasal route daily. Active HYDROcodone-acetam inophen 5-325 MG tabletIndications: Acute Pain < 7 Day Supply Take 1 tablet by mouth every 6 (six) hours as needed for Pain. Indications: Acute Pain < 7 Day Supply 28 tablet 0 Active atorvastatin 10 MG tabletIndications: Other hyperlipidemia Take 1 tablet (10 mg total) by mouth daily. 90 tablet 1 0 Active Glucose Blood (ErydelUCH VERIO) test stripIndications:T ype 2 diabetes mellitus with diabetic neuropathy, with long-term current use of insulin ([facility]) Use to check blood sugar twice daily. 200 strip 1 0 Active SITagliptin-metFOR MIN HCl (JANUMET) 50-1000 MG TabIndications:Typ e 2 diabetes mellitus with diabetic neuropathy, with long-term current use of insulin ([facility]) Take 1 tablet by mouth daily. 90 tablet 1 0 Active Lancets MiscIndications:Ty pe 2 diabetes mellitus with diabetic neuropathy, with long-term current use of insulin ([facility]) Use to check blood sugar twice daily. 1 Container 2 0 Active lisinopril 10 MG tabletIndications: Essential hypertension Take 1 tablet (10 mg total) by mouth daily. 90 tablet 1 0 Active Active Problems Problem Noted Date Diagnosed Date Polycythemia vera ([facility]) 02/12/2019 Type 2 diabetes mellitus wit h neurologic complication, with long-term current use of insulin ([facility]) 02/12/2019 Essential hypertension 02/12/2019 Other hyperlipidemia 02/12/2019 Family History Medical History Relation Comments Cancer Father Relation Status Comments Father Mother Alive Social History Tobacco Use Types Packs/Day Years Used Date Smoking Tobacco: Every Day Cigarettes Smokeless Tobacco: Never Alcohol Use Standard Drinks/Week Comments Yes 0 (1 standard drink = 0.6 oz pur e alcohol) PHQ-2 Answer Date Recorded PHQ-2 Score 0 05/15/2019 Sex and Gender Information Value Date Recorded Sex Assigned at Not on file Legal Sex Male 7:57 PM CDT Gender Identity Not on file Sexual Orientation Not on file Last Filed Vital Signs Vital Sign Reading Time Taken Comments Blood Pressure 136/76 11/13/2019 9:50 AM CDT Pulse 118 11/13/2019 9:50 AM CDT Temperature 35.9 C (96.7 F) 11/13/2019 9:50 AM CDT Respiratory Rate 18 11/13/2019 9:50 AM CDT Oxygen Saturation 96% 11/13/2019 9:50 AM CDT Inhaled Oxygen Concentration - - Weight 91.8 kg (202 lb 6.4 oz) 11/13/2019 9:50 A M CDT Height 175.3 cm (5' 9 ) 11/13/2019 9:50 AM CDT Body Mass Index 29.89 11/13/2019 9:50 AM CDT Plan of Treatment Health Maintenance Due Date Last Done Comments Colorectal Cancer Screening Colonoscopy (10 Years) 1965 Kidney Health Evaluation 1963 Lipid Panel 1965 Pneumococcal Vaccine: Pediatrics (0 to 5 Years) and At-Risk Patients (6 to 64 Years) (1 of 2 - PCV) 11/16/1969 Diabetes: Retinopathy Eye Exam 11/16/1981 Hepatitis C 11/16/1981 DTaP, Tdap and Td Vaccines (1 - Tdap) 11/16/1982 Zoster Vaccines (1 of 2) 11/16/2013 Annual Physical 02/13/2020 02/12/2019 Hemoglobin A1C 05/15/2020 11/13/2019, 04/22, 06/27/2017, Additional history exists COVID-19 Vaccine ( - 2023- season) 2023 06/23/2020, 05/30/2020 Influenza Adult (#1) 2023 RSV Immunization or 60+ Years (1 - 1-dose 75+ series) 11/16/2038 Meningococcal B Vaccine Aged Out No l onger eligible based on patient's age to complete this topic Meningococcal Vaccine Aged Out No lucina susan eligible based on patient's age to complete this topic RSV Immunizations Under 20 Months Aged Out No longer eligible based on patient's age to complete this topic Procedures Procedure Name Priority Date/Time Associated Diagnosis Comments HEMOGLOBIN, GLYCOSYLATED Routine 11/13/2019 Type 2 diabetes mellitus with diabetic neuropathy, with long-term current use of insulin from Last 3 Months or Most Recently Relevant to Health Maintenance Results * HEMOGLOBIN, GLYCOSYLATED (11/13/2019) HGB A1C 6.8 % [address] ([id number]) [place] 11/13/2019 us Nader Richardson MD LABORATORY Final Resul t [address] ([id number]), [place] [address] [place] [address], [place] [phone] from Last 3 Months or Most Recently Relevant to Health Maintenance Insurance [employer] Care Teams Die Cast Supervisor Relationship Specialty [place] [id number] [place] [address] PCP - General FAMILY PRACTICE 02/08/19
--- OUTSIDE RECORDS SUMMARY | 2024-05-30 16:21 | XMS_ITS | Referral Summary ---
Author Organization [facility] Address [address] [place] [address] Care Team Providers Care Planning Associate Name Role Phone Hoang Bernal MD Primary Care Provider [phone] Source Comments [facility],non-owned Affiliates and Associated Physician Practices is amultiple site organization consisting of ambulatory clinics and hospital sitesin [place], [place], [place] and [place]. This disclosure is being madepursuant to the Care Everywhere program and may not contain all information available regarding this patient. Last updated 17.[facility] [employer] Encounters Date Type Department Care Team Description 05/11/2024 Travel 05/11/2024 1:40 PM SYSTEMS TEST TECHNICIAN Office Visit [facility] [address] [place] [address] [phone] S/P eye surgery CEIOL OD:(CCA0T0 +18.0 D), 03/29/2024 OS:(CCA0T0 +18.5 D), 04/12/2024 (Primary Dx); Pseudophakia; Type 2 diabetes mellitus without retinopathy (HCC) 04/20/2024 Travel 04/20/2024 2:20 PM SYSTEMS TEST TECHNICIAN Office Visit [facility] - Op[facility]mology [address] [place] [address] [phone] S/P eye surgery CEIOL OD:(CCA0T0 +18.0 D), 03/29/2024 OS:(CCA0T0 +18.5 D), 04/12/2024 (Primary Dx) 04/13/2024 Travel 04/13/2024 9:30 AM SYSTEMS TEST TECHNICIAN Office Visit [facility] [address] [place] [phone] Portillo Ward MD S/P eye surgery CEIOL OD:(CCA0T0 +18.0 D), 03/29/2024 OS:(CCA0T0 +18.5 D), 04/12/2024 (Primary Dx) 04/12/2024 Travel 04/12/2024 10:40 AM SYSTEMS TEST TECHNICIAN - 04/12/2024 11:45 AM SYSTEMS TEST TECHNICIAN Surgery [facility] [address] [place] [phone] Portillo Ward MD Cataract extraction with intraocular lens implantation, LEFT EYE 04/12/2024 10:38 AM SYSTEMS TEST TECHNICIAN Anesthesia Event [facility] [address] [place] [phone] Abel Butts MD Rinderer, Mallory, CHILDREN'S TUTOR NURSERY-MACHINIST LINOTYPE 04/12/2024 8:29 AM SYSTEMS TEST TECHNICIAN - 04/12/2024 12:00 PM SYSTEMS TEST TECHNICIAN Hospital Encounter [facility] [address] [place] [phone] Portillo Ward MD Surgery General Discharge Disposition: Home or Self Care 04/04/2024 Travel 04/04/2024 9:00 AM SYSTEMS TEST TECHNICIAN Office Visit [facility] [address] [place] [phone] Portillo Ward MD S/P eye surgery (CCA0T0 +18.0 D), right eye 03/29/2024 (Primary Dx) 03/30/2024 Telephone [facility] [address] [place] [phone] Portillo Ward MD Appointment 03/29/2024 Travel 03/29/2024 8:30 AM SYSTEMS TEST TECHNICIAN - 03/29/2024 9:35 AM SYSTEMS TEST TECHNICIAN Surgery [facility] [address] [place] [phone] Portillo Ward MD Cataract extraction with intraocular lens implantation, RIGHT EYE 03/29/2024 8:44 AM SYSTEMS TEST TECHNICIAN Anesthesia Event [facility] [address] [place] [phone] Anthony Gaston MD Rinderer, Mallory, APRN-MACHINIST LINOTYPE 03/29/2024 6:40 AM SYSTEMS TEST TECHNICIAN - 03/29/2024 10:00 AM SYSTEMS TEST TECHNICIAN Hospital Encounter [facility] [address] [place] [phone] Portillo Ward MD Surgery General Discharge Disposition: Home or Self Care from Last 3 Months Allergies Active Allergy Reactions Criticality Noted Date [...] tablet by mouth once daily Active Zenpep 47353-159872 units CPEP TAKE 1 CAPSULE BY MOUTH [...] Active Active Problems No known active problems Social [...] Comments Blood Pressure 145/76 04/12/2024 11:39 AM SYSTEMS TEST TECHNICIAN Pulse 88 04/12/2024 11:39 AM SYSTEMS TEST TECHNICIAN Temperature 36.6 C (97.9 F) 04/12/2024 11:29 AM SYSTEMS TEST TECHNICIAN Respiratory Rate 16 04/12/2024 11:39 AM SYSTEMS TEST TECHNICIAN Oxygen Saturation 94% 04/12/2024 11:39 AM SYSTEMS TEST TECHNICIAN Inhaled Oxygen Concentration - - Weight 100.2 kg (221 lb) 04/12/2024 8:49 AM SYSTEMS TEST TECHNICIAN Height 172.7 cm (5' 8 ) 04/12/2024 8:49 AM SYSTEMS TEST TECHNICIAN Body Mass Index 33.6 04/12/2024 8:49 AM SYSTEMS TEST TECHNICIAN Plan of Treatment Upcoming Encounters Date Type Department Care Team (Late st Contact Info) Description 07/17/2024 2:15 PM CDT Office Visit [facility] [address] [place] [phone] Fly Redding MD [address] [place], [place] [address]VD [place] [address] Medical Devices Implanted Type Area Check Cashier Device Identifier Shelf Expiration Date Model / Serial / Lot Clareon Uv Iol [id number] +18.0 D Implanted:Qty: 1 on 03/29/2024 by Portillo Ward MD at [facility] Right: Eye Wilner Savalanche 07/19/2027 CCA0T0 +18.0 D / [id number] / N/A Clareon Iol [id number] 18.5 Implanted:Qty: 1 on 04/12/2024 by Portillo Ward MD at [facility] Left: Eye 08/07/2027 CCA0T0 / [id number] / Procedures Procedure Name Priority Date/Time Associated Diagnosis Comments GLUCOSE - POINT OF CARE Routine 04/12/2024 11:33 AM SYSTEMS TEST TECHNICIAN CA REMV CATARACT EXTRACAP,INSRT LENS,COMPLX 04/12/2024 10:37 AM SYSTEMS TEST TECHNICIAN Combined forms of age-related cataract of both eyes Special Needs SUPINE, [facility] LOCAL CA REMV CATARACT EXTRACAP,INSERT LENS 04/12/2024 10:37 AM SYSTEMS TEST TECHNICIAN Combined forms of age-related cataract of both eyes Special Needs SUPINE, [facility] LOCAL GLUCOSE - POINT OF CARE Routine 04/12/2024 8:51 AM SYSTEMS TEST TECHNICIAN CA REMV CATARACT EXTRACAP,INSRT LENS,COMPLX 03/29/2024 8:39 AM SYSTEMS TEST TECHNICIAN Combined forms of age-related cataract of both eyes Special Needs SUPINE, [facility] LOCAL CA REMV CATARACT EXTRACAP,INSERT LENS 03/29/2024 8:39 AM SYSTEMS TEST TECHNICIAN Combined forms of age-related cataract of both eyes Special Needs SUPINE, [facility] LOCAL GLUCOSE - POINT OF CARE Routine 03/29/2024 7:31 AM SYSTEMS TEST TECHNICIAN from Last 3 Months Results * GLUCOSE - POINT OF CARE (04/12/2024 11:33 AM SYSTEMS TEST TECHNICIAN) Only the most recent of3 resultswithin the time period is included. [facility] Glucose WB/POC 99 70 - 99 mg/dL 04/18/2024 7:45 AM SYSTEMS TEST TECHNICIAN [facility] Specimen Type Cap Fingerstick 2024 7:45 AM SYSTEMS TEST TECHNICIAN [facility] Blood BLOOD SPECIMEN / Unknown 04/12/2024 11:33 AM SYSTEMS TEST TECHNICIAN 04/18/2024 7:44 AM SYSTEMS TEST TECHNICIAN Portillo Ward MD LAB - POINT OF CARE ORDERABLES [facility] [address] [place] [address], [facility] [phone] from Last 3 Months Care Teams Planning Associate Relationship Specialty Start Date End Date Hoang Bernal MD [address] [place] [address] PCP - General Family Medicine 02/09/24
--- OUTSIDE RECORDS SUMMARY | 2024-05-30 16:22 | XMS_ITS | Encounter Summary ---
Author Organization [facility] Address [facility] [facility] [place] [address] Care Team Providers Care Home Service Consultant Name Role Phone Hoang Bernal MD Primary Care Provider [phone] Reason for Visit * Reason Onset Date Comments Appointment 03/30/2024 Encounter Details Date Type Department Care Team (Late st Contact Info) Description 03/30/2024 Telephone [facility] [address] [place] [address] Portillo Ward MD [facility] DEPT [place] [address] Appointment Social History Tobacco Use Types Packs/Day Years Used Date Smoking Tobacco: Every Day Cigarettes 0.5 48.2 Started: 1978 Smokeless Tobacco: Never Alcohol Use Standard Drinks/Week Comments Yes 0 (1 standard drink = 0.6 oz pur e alcohol) AUDIT-C Answer Date Recorded Q1: How often do you have a drink containing alcohol? Never 03/29/2024 Q2: How many drinks containi ng alcohol do you have on a typical day when you are drinking? Patient does not drink Q3: How often do you have si x or more drinks on one occasion? Never 03/29/2024 Sex and Gender Information Value Date Recorded Sex Assigned at Not on file Gender Identity Not on file Sexual Orientation Not on file documented as of this encounter Miscellaneous Notes * Telephone Encounter - Robert Flowers - 03/30/2024 8:14 AM CST Pt called today to reschedule POST OP appointment. Please assist and advise TANK BUILDER documented in this encounter Plan of Treatment Upcoming Encounters Date Type Department Care Team (Late st Contact Info) Description 07/17/2024 2:15 PM CDT Office Visit [facility] [address] [place] [phone] Fly Redding MD [address] [place] [address] DEPT [place] [address] documented as of this encounter Visit Diagnoses Not on filedocumented in this encounter Care Teams Home Service Consultant Relationship Specialty Start Date End Date Hoang Bernal MD [address] [place] [address] PCP - General Family Medicine 02/09/24 documented as of this encounter
--- OUTSIDE RECORDS SUMMARY | 2024-05-30 16:22 | XMS_ITS | Encounter Summary ---
Author Organization [facility] Address [address] [place] [address] Phone Care Team Providers Care Glass Unloading Equipment Tender Name Role Phone Nader Richardson MD Primary Care Provider Kwame Peres MD Primary Care Provider [phone] Keyshawn Bobo DO Primary Care Provider [phone] Encounter Details Date Type Department Care Team (Late st Contact Info) Description 02/21/2020 Telephone [facility] [address] [place] [address] [place] [address] Kwame Peres MD [address] [place] [phone] Social History Tobacco Use Types Packs/Day Years Used Date Smoking Tobacco: Every Day Cigarettes Smokeless Tobacco: Never Alcohol Use Standard Drinks/Week Comments Yes 0 (1 standard drink = 0.6 oz pur e alcohol) rare PHQ-2 Answer Date Recorded PHQ-2 Score 0 11/16/2018 Sexually Active Control Partners Comments Not Currently Sex and Gender Information Value Date Recorded Sex Assigned at Not on file Legal Sex Male 2:06 PM CDT Gender Identity Not on file Sexual Orientation Not on file documented as of this encounter Miscellaneous Notes * Telephone Encounter - Chelsie Irizarry - 02/21/2020 2:35 PM CST Patient no showed his appointment, he thought his appointment was later this month. He is reschedule for 12/17. PRESS OPERATOR documented in this encounter Plan of Treatment Upcoming Encounters Date Type Department Care Team (Late st Contact Info) Description 08/30/2024 2:00 PM CDT Office Visit [facility] [address] [facility] [address] [place] [phone] Kwame Peres MD [address] [place] [phone] documented as of this encounter Visit Diagnoses Not on filedocumented in this encounter Additional Health Concerns Assessment Noted Time PHQ-9 Depression Total Score: 0 02/23/20 2:27 PM CUT PRESS OPERATOR documented as of this encounter Care Teams Glass Unloading Equipment Tender Relationship Specialty [place] [address] [place] [address] PCP - General Family Medicine 02/22/19 09/02/20 [place] [address] [place] [address] PCP - General Oncology 09/03/20 09/03/20 Keyshawn Bobo DO [address] [facility] [address] [place] [address] PCP - General Internal Medicine 09/04/20 documented as of this encounter
[2024-05-30 17:28] LABS: Hemoglobin A1C 6.1 % (<5.7)
[2024-06-04 09:09] LABS: Alpha Fetoprotein Tumor Marker 1.7 ng/mL (<6.1)
== END 2024-05-30 14:27 | disposition home or self-care (01) ==
LOC: ANHLAB 14:27
PROVIDERS: PCP Family Medicine; Referring Provider Family Medicine; Visit Provider Nurse Practitioner
DX: E11.40 Type 2 diabetes mellitus with diabetic neuropathy, unspecified (principal); I10 Essential (primary) hypertension; E11.65 Type 2 diabetes mellitus with hyperglycemia; E66.9 Obesity, unspecified; E11.319 Type 2 diabetes mellitus with unspecified diabetic retinopathy without macular edema; R74.8 Abnormal levels of other serum enzymes; K86.81 Exocrine pancreatic insufficiency; K75.81 Nonalcoholic steatohepatitis (NASH); K74.60 Unspecified cirrhosis of liver
CPT/HCPCS: 36415; 80053; 80074; 81596; 82103; 82105; 82150; 82390; 82728; 82784; 83036; 83520; 83540; 83550; 83690; 85027; 85055; 85610; 86038; 86364; 86376

== ENCOUNTER 2024-08-29 15:19 | Outpatient (CLI) | payer OTHER, SELFPAY ==
[2024-08-29 16:19] LABS: Mean Corpuscular HGB Conc 33.9 g/dl (32-36); Mean Corpuscular Hemoglobin 32.9 pg (26-34); Mean Corpuscular Volume 97.1 fl (80-100); Mean Platelet Volume 9.4 fl (7.4-10.4); Platelet Count Result 151 k/mm3 (150-375); Red Blood Count 5.77 M/mm3 (4.6-6.20); Red Cell Distribution Width 13.2 % (11.5-14.5); White Blood Count 5.7 K/mm3 (4.5-10.0)
[2024-08-29 16:29] LABS: Prothrombin Time 13.3 Seconds (11.1-14.7)
[2024-08-29 16:43] LABS: Alanine Aminotransferase 36 U/L (6-50); Albumin Level 4.2 g/dL (3.5-5.1); Alkaline Phosphatase 59 U/L (38-126); Amylase 275 U/L (30-110); Anion Gap 6 mmol/L (4-12); Aspartate Amino Transferase 36 U/L (17-59); Bilirubin,Total 0.4 mg/dL (0.2-1.3); Blood Urea Nitrogen 15 mg/dL (9-20); Calcium 9.8 mg/dL (8.4-10.2); Carbon Dioxide 31 mmol/L (22-30); Chloride 105 mmol/L (98-107); Estimated Glomerular Filt Rate > 60; Glucose 144 mg/dL (65-110); Potassium 4.1 mmol/L (3.4-5.0); Sodium 142 mmol/L (137-145)
[2024-08-29 17:23] LABS: Lipase 2808 U/L (23-300)
--- OUTSIDE RECORDS SUMMARY | 2024-08-29 17:39 | XMS_ITS | Clinical Summary ---
Author Organization [facility] Address [address] [place] [address] Phone Care Team Providers Care Adzing And Boring Machine Operator Name Role Phone Keyshawn Bobo DO Primary Care Provider Allergies Active Allergy Reactions [...] 2:24 PM CDT Height 175.3 cm (5' 9) 09/01/2023 2:24 PM CDT Body Mass Index 33.85 09/01/2023 2:24 PM CDT Plan of Treatment Upcoming Encounters Date Type Department Care Team (Late st Contact Info) Description 08/30/2024 2:00 PM CDT Office Visit [facility] [address] [phone] Kwame Peres MD [address] [place] [address] Health Maintenance Due Date Last Done Comments Hepatitis C Virus (HCV) Screening 1965 TdaP Immunization 1965 Pneumococcal Immunization (5 0+ years) (1 of 2 - PCV) 11/16/1982 Cologuard 11/16/2008 Colonoscopy 11/16/2008 Colorectal Cancer Screening 11/16/2008 Immunochemical Fecal Occult Blood 11/16/2008 Zoster Immunization (1 of 2) 11/16/2013 PSA Discussion 11/16/2018 SARS-COV-2 Immunization ( season) 2023 06/23/2020, 05/30/2020 Influenza Immunization (Seas on Ended) 2024 Respiratory Syncytial Virus (RSV) Immunization (Adult) (1 - 1-dose 75+ series) 11/16/2038 Hepatitis B Immunization Aged Out No longer eligible based on patient's age to complete this topic Human Papillomavirus (HPV) Immunization Aged Out No longer eligible b ased on patient's age to complete this topic Meningococcal Immunization (ACWY) Aged Out No longer eligible b ased on patient's age to complete this topic Rotavirus Immunization Aged Out No lo nger eligible based on patient's age to complete this topic Insurance [address] [place] [phone] MEDICAID [employer] Care Teams Adzing And Boring Machine Operator Relationship Specialty Start Date End Date Keyshawn Bobo DO [address] [facility] [address] [place] [address] PCP - General Internal Medicine 09/04/20
--- OUTSIDE RECORDS SUMMARY | 2024-08-29 17:39 | XMS_ITS | Encounter Summary ---
Author Organization [facility] Address [address] [address] Phone Care Team Providers Care Collar Worker Name Role Phone Nader Richardson MD Primary Care Provider Kwame Peres MD Primary Care Provider Keyshawn Bobo DO Primary Care Provider [phone] Encounter Details Date Type Department Care Team (Late st Contact Info) Description 02/21/2020 Telephone [facility] [address] [place] [place] [address] Kwame Peres MD [address] [place] [phone] Social History Tobacco Use Types Packs/Day [...] this month. He is reschedule for 12/17. SAMPLE MAKER documented in this encounter Plan of Treatment Upcoming Encounters Date Type Department Care Team (Late st Contact Info) Description 08/30/2024 2:00 PM CDT Office Visit [facility] [address] [facility] [address] [place] [phone] Kwame Peres MD [address] [place] [phone] documented as of this encounter Visit Diagnoses Not on filedocumented in this encounter Additional Health Concerns Assessment Noted Time PHQ-9 Depression Total Score: 0 02/23/20 2:27 PM HAND SAMPLE MAKER documented as of this encounter Care Teams Collar Worker Relationship Specialty [place] [address] [place] [address] PCP - General Family Medicine 02/22/19 09/02/20 [place] [address] [facility] [address] PCP - General Oncology 09/03/20 09/03/20 Keyshawn Bobo DO [address] [facility] [address] [place] [address] PCP - General Internal Medicine 09/04/20 documented as of this encounter
--- OUTSIDE RECORDS SUMMARY | 2024-08-29 17:39 | XMS_ITS | Encounter Summary ---
Author Organization [facility] Address [address] [facility] [place] [address] Care Team Providers Care Financial Reporting Manager Name Role Phone Hoang Bernal MD Primary Care Provider [phone] Reason for Visit * Reason Onset Date Comments Appointment 03/30/2024 Encounter Details Date Type Department Care Team (Late st Contact Info) Description 03/30/2024 Telephone [facility] [address] [place] [address] Portillo Ward MD [facility] [facility] [place] [address] Appointment Social History Tobacco Use Types Packs/Day Years Used Date Smoking Tobacco: Every Day Cigarettes 0.5 48.4 Started: 1978 Smokeless Tobacco: Never Alcohol Use [...] at Not on file Legal Sex Male 7:03 AM CDT Gender Identity Not on file Sexual Orientation Not on file documented as of this encounter Miscellaneous Notes * Telephone Encounter - Robert Flowers - 03/30/2024 8:14 AM CST Pt called today to reschedule POST OP appointment. Please assist and advise R SUPERVISOR documented in this encounter Plan of Treatment Upcoming Encounters Date Type Department Care Team (Late st Contact Info) Description 01/17/2025 1:15 PM CDT Office Visit [facility] - Op[facility]mology [address] [place] [phone] Fly Redding MD [address] [place] [address] [place] [phone] documented as of this encounter Visit Diagnoses Not on filedocumented in this encounter Care Teams Financial Reporting Manager Relationship Specialty Start Date End Date Hoang Bernal MD [address] [place] [address] PCP - General Family Medicine 02/09/24 documented as of this encounter
--- OUTSIDE RECORDS SUMMARY | 2024-08-29 17:39 | XMS_ITS | Clinical Summary ---
Author Organization [facility] [employer] Address [address] [place] [address] Care Team Providers Care Mine Shifter Name Role Phone Hoang Bernal MD Primary Care Provider [phone] Source Comments [facility],non-owned Affiliates and Associated Physician Practices is amultiple site organization consisting of ambulatory clinics and hospital sitesin [place], [place] and [place]. This disclosure is being madepursuant to the Care Everywhere program and may not contain all information available regarding this patient. Last updated 17.[facility] [facility] Allergies Active Allergy Reactions Criticality Noted Date Comments Bee Venom Anaphylaxis High 03/22/2024 'YELLOW JACKETS Contrast-Iodinated Agents Fo r Ct/Other Anaphylaxis High 07/07/2017 Pramipexole Vomiting Medium 02/12/2019 Ropinirole Vomiting Medium 02/12/2019 Medications * Be aware that medications may not be up to date on this document. Alwaysverify current medications with the patient. metFORMIN (Glucophage) 1000 MG tablet Take 1 (one) tablet by mouth 2 times daily 4 Active metoprolol succinate XL 24hr (Toprol XL) 50 MG tablet Take 1 (one) tablet by mouth once daily Active Zenpep 90162-524176 units CPEP TAKE 1 CAPSULE BY MOUTH BEFORE SMALLER MEALS AND 2 CAPSULES BEFORE LARGE MEALS. 1 CAPSULE WITH SNACKS. 4 Active lisinopril (Prinivil; Zestril) 20 MG tablet Take 1 (one) tablet by mouth once daily 4 Active glipiZIDE (Glucotrol) 5 MG tablet Take 1 (one) tablet by mouth every morning 4 Active finasteride (Proscar) 5 MG tablet Take 1 (one) tablet by mouth once daily 4 Active diphenoxylate- atropine (Lomotil) 2.5-0.025 MG tablet 4 Active atorvastatin (Lipitor) 10 MG tablet Take 1 (one) tablet by mouth once daily Active Ascorbic Acid 1000 MG Active buPROPion SR 12hr (Wellbutrin-SR ) 150 MG tablet Take 1 (one) tablet by mouth 2 times daily Active predniSONE (Deltasone) 50 MG tablet TAKE 1 TABLET BY MOUTH 13 HOURS PRIOR TO EXAM, THEN 50 MG 7 HOURS PRIOR TO EXAM, THEN 1 HOUR PRIOR TO EXAM 4 Active cholestyramine (Questran) 4 g packet DISSOLVE & MIX 1 PACKET IN LIQUID AND DRINK BY MOUTH ONCE DAILY AVOID OTHER MEDS WITHIN 1 HOUR BEFORE OR 4-6 HOURS AFTER DOSE 4 Active Trulicity 3 MG/0.5ML injection INJECT 1 SYRINGE SUBCUTANEOUSLY ONCE A WEEK 5 Active Active Problems No known active problems Encounters Date Type Department Care Team Description 07/17/2024 2:15 PM CDT Office Visit [facility] - Ophthalmology [address] [place] [phone] Fly Redding MD Type 2 diabetes mellitus without retinopathy (HCC) (Primary Dx); PVD (posterior vitreous detachment), right [H43.811] 07/17/2024 2:10 PM CDT Clinical Support [facility] - Ophthalmology [address] [place] [phone] Fly Redding MD Type 2 diabetes mellitus without retinopathy (HCC) (Primary Dx) 07/17/2024 Travel from Last 3 Months Social History Tobacco Use Types Packs/Day Years Used Date Smoking Tobacco: Every Day Cigarettes 0.5 48.4 Started: 1978 Smokeless Tobacco: Never Tobacco Cessation:Ready [...] more drinks on one occasion? Never 04/12/2024 PHQ-2 Answer Date Recorded Patient Health Questionnaire-2 Score 0 07/17/2024 Sex and Gender Information Value Date Recorded Sex Assigned at Not on file Legal Sex Male 7:03 AM CDT Gender Identity Not on file Sexual Orientation Not on file Last Filed Vital Signs Vital Sign Reading Time Taken Comments Blood Pressure 145/76 04/12/2024 11:39 AM QUALITY ASSURANCE CALIBRATOR Pulse 88 04/12/2024 11:39 AM QUALITY ASSURANCE CALIBRATOR Temperature 36.6 C (97.9 F) 04/12/2024 11:29 AM QUALITY ASSURANCE CALIBRATOR Respiratory Rate 16 04/12/2024 11:39 AM QUALITY ASSURANCE CALIBRATOR Oxygen Saturation 94% 04/12/2024 11:39 AM QUALITY ASSURANCE CALIBRATOR Inhaled Oxygen Concentration - - Weight 100.2 kg (221 lb) 04/12/2024 8:49 AM QUALITY ASSURANCE CALIBRATOR Height 172.7 cm (5' 8) 04/12/2024 8:49 AM QUALITY ASSURANCE CALIBRATOR Body Mass Index 33.6 04/12/2024 8:49 AM QUALITY ASSURANCE CALIBRATOR Plan of Treatment Upcoming Encounters Date Type Department Care Team (Late st Contact Info) Description 01/17/2025 1:15 PM CDT Office Visit [facility] - Ophthalmology [address] [place] [phone] Fly Redding MD [address] [place] [address] [place] [phone] Health Maintenance Due Date Last Done Comments COLOGUARD (AGES 45-75) - COLON CA SCREENING 1965 COLON MONITORING 1965 COLONOSCOPY [...] VACCINE (1 of 2) 11/16/2013 COVID-19 VACCINE ( season) 2023 06/23/2020, 05/30/2020 INFLUENZA VACCINE (Season Ended) 2024 SCREENING FOR DIABETES 04/12/2027 , 04/12/2024, 03/29/2024, Additional history exists Respiratory Syncytial Virus (RSV) Vaccine Pt: or over 60 yrs (1 - 1-dose 75+ series) 11/16/2038 DEPRESSION SCREENING Completed 07/17/2024 HEPATITIS B VACCINE Aged Out No longe [...] A/C/Y/W VACCINE Aged Out No longer eligible based on patient's age to complete this topic Medical Devices Implanted Type Area Hydro Technician Device Identifier Shelf Expiration Date Model / Serial / Lot Clareon Uv Iol [id number] +18.0 D Implanted:Qty: 1 on 03/29/2024 by Portillo Ward MD at [facility] Right: Eye [employer] 07/19/2027 [id number] +18.0 D / [id number] / N/A Clareon Iol [id number] 18.5 Implanted:Qty: 1 on 04/12/2024 by Portillo Ward MD at [facility] Left: Eye 08/07/2027 CCA0T0 / [id number] / Procedures Procedure Name Priority Date/Time Associated Diagnosis Comments GLUCOSE - POINT OF CARE Routine 04/12/2024 8:51 AM QUALITY ASSURANCE CALIBRATOR from Last 3 Months or Most Recently Relevant to Health Maintenance Results * (ABNORMAL) GLUCOSE - POINT OF CARE (04/12/2024 8:51 AM QUALITY ASSURANCE CALIBRATOR) [facility] Glucose WB/POC 115(H) 70 - 99 mg/dL 04/12/2024 8:53 AM QUALITY ASSURANCE CALIBRATOR [facility] Specimen Type Venous 04/12/2024 8:53 AM QUALITY ASSURANCE CALIBRATOR [facility] Blood BLOOD SPECIMEN / Unknown 04/12/2024 8:51 AM QUALITY ASSURANCE CALIBRATOR 04/12/2024 8:52 AM QUALITY ASSURANCE CALIBRATOR us Portillo Ward MD LAB - POINT OF CARE ORDERABLE S Final Result [facility] [address] [place] [address], [facility] [phone] from Last 3 Months or Most Recently Relevant to Health Maintenance Insurance [facility] Care Teams Mine Shifter Relationship Specialty Start Date End Date Hoang Bernal MD [address] [place] [address] PCP - General Family Medicine 02/09/24
--- OUTSIDE RECORDS SUMMARY | 2024-08-29 17:39 | XMS_ITS | Clinical Summary ---
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 5 Active alfuzosin (UROXATRAL) 10 mg Extended Release 24 hour tablet Take 10 mg by mouth daily. 5 Active Trulicity 3 mg/0.5 mL injection Inject 3 mg by subcutaneous injection every 7 days. 5 Active finasteride (PROSCAR) 5 mg tablet Take 5 mg by mouth daily. 5 Active glipiZIDE (GLUCOTROL) 5 mg tablet Take 5 mg by mouth daily with breakfast. 5 Active Zenpep 60,000-189,600- 252,600 unit Capsule, Delayed Release(E.C.) 5 Active lisinopriL (PRINIVIL) 20 mg tablet Take 20 mg by mouth daily. 5 Active metFORMIN (GLUCOPHAGE) 1,000 mg tablet Take 1,000 mg by mouth daily with breakfast. 5 Active metoprolol succinate (TOPROL XL) 50 mg Extended Release 24 hour tablet Take 50 mg by mouth daily. Active Active Problems Problem Noted Date Diagnosed Date Obesity (BMI 30.0-34.9) 08/08/2024 Essential hypertension 08/08/2024 Mixed hyperlipidemia 08/08/2024 PATITO (obstructive sleep apnea) 08/08/2024 COPD (chronic obstructive pulmonary disease) DM (diabetes mellitus) 08/08/2024 Encounters Date Type Department Care Team Description 08/21/2024 External Device Data [facility] Provider, Abstract 08/14/2024 External Device Data [facility] Provider, Abstract 08/09/2024 External Device Data [facility] Provider, Abstract 08/09/2024 External Device Data [facility] Provider, Abstract 08/08/2024 Telephone [facility] - [address] [facility] [phone] [phone] Lizzy Cooper MD NURSE ASSESSMENT 08/08/2024 Orders Only [facility] - [address] [facility] [phone] [address] Lizzy Cooper MD Obesity (BMI 30.0-34.9) (Primary Dx); Essential hypertension; Mixed hyperlipidemia; PATITO (obstructive sleep apnea); Chronic obstructive pulmonary disease, unspecified COPD type ([facility]); Diabetes mellitus of other type without complication, unspecified whether mcfp insulin use ([facility]) 07/24/2024 External Device Data [facility] Provider, Abstract 07/24/2024 External Device Data [facility] Provider, Abstract 07/24/2024 External Device Data [facility] Provider, Abstract 06/13/2024 Orders Only [facility] - [id number] [place] [phone] [address] Frederic Malik MD from Last 3 Months Social History Tobacco Use Types Packs/Day Years Used Date Smoking Tobacco: Every Day Cigarettes Tobacco Cessation:Ready to Q uit: Not Asked; Counseling Given: Not Answered Alcohol Use Standard Drinks/Week Comments Yes 2 (1 standard drink = 0.6 oz pur e alcohol) Sex and Gender Information Value Date Recorded Sex Assigned at Not on file Legal Sex Male 2:41 PM CDT Gender Identity Not on file Sexual Orientation Lesbian or Sales 08/09/2024 10 :01 AM CDT Last Filed Vital Signs Vital Sign Reading Time Taken Comments Blood Pressure - - Pulse - - Temperature - - Respiratory Rate - - Oxygen Saturation - - Inhaled Oxygen Concentration - - Weight 101.2 kg (223 lb) 08/09/2024 9:59 AM CDT Height 172.7 cm (5' 8) 08/09/2024 9:59 AM CDT Body Mass Index 33.91 08/09/2024 9:59 AM CDT Plan of Treatment Health Maintenance Due Date Last Done Comments DIABETES ANNUAL FOOT EXAM 11/16/1981 DIABETES ANNUAL RETINAL EXAM 11/16/1981 DIABETES HBA1C Q 6 MONTHS 11/16/1981 DIABETES MICROALBUMIN ANNUAL SCREEN 11/16/1981 LDL CHOLESTEROL ANNUAL 11/16/1981 DTAP/TDAP/TD VACCINES (1 - Tdap) 11/16/1982 FIT-DNA Q 3 years 11/16/2008 FIT/FOBT Q 1 year 11/16/2008 Flex Sig/CT Colonography Q 5 years 11/16/2008 ZOSTER VACCINE (1 of 2) 11/16/2013 INFLUENZA VACCINE (#1) 2023 RSV VACCINE (60+ or ) (1 - Risk 60-74 years 1-dose series) 2023 COLORECTAL SCREENING 10/25/2033 10/26/2023 Colorectal Cancer Screening 10/25/2033 HEPATITIS B VACCINES Aged Out No long er eligible based on patient's age to complete this topic Procedures Procedure Name Priority Date/Time Associated Diagnosis Comments ENDOSCOPY, COLON, DIAGNOSTIC Routine 10/26/2023 2:57 PM CDT from Last 3 Months or Most Recently Relevant to Health Maintenance Results * ENDOSCOPY, COLON, DIAGNOSTIC (10/26/2023 2:57 PM CDT) us Frederic Mckeon MD GI PROCEDURE ORDERA BLES Final Result [facility] - [address] [place] [address]# [id number] [address] from Last 3 Months or Most Recently Relevant to Health Maintenance Insurance [facility] MEDICAID
== END 2024-08-29 15:20 | disposition home or self-care (01) ==
LOC: ANHLAB 15:19
PROVIDERS: PCP Family Medicine; Visit Provider Nurse Practitioner
DX: K86.81 Exocrine pancreatic insufficiency (principal); R74.8 Abnormal levels of other serum enzymes; Q45.3 Other congenital malformations of pancreas and pancreatic duct; K75.81 Nonalcoholic steatohepatitis (NASH)
CPT/HCPCS: 36415; 80053; 82150; 83520; 83690; 85027; 85610

== ENCOUNTER 2024-09-03 15:48 | Outpatient (CLI) | payer OTHER, SELFPAY ==
--- OUTSIDE RECORDS SUMMARY | 2024-09-03 16:43 | XMS_ITS | Data Portability ---
Author Organization [place] [facility], Main Office Address [address] [place] [address] Assessment No assessment recorded. Plan of Treatment Reminders Order Date Submit Date Provider Last Modified By Organization Details Last Modified Time Details Appointments None recorded. Lab urinalysis , dipstick 2022 023 [email or web address] [id number] [facility] [place], [address], [address], 3 15:50:26 testostero ne, total, serum 2022 023 [facility], [address], [place], [address], 3 05:01:27 urinalysis , dipstick 2022 023 [email or web address] 9 [facility] [place], [address], [place], [address], 3 15:43:25 Referral None recorded. Procedures None recorded. Surgeries None recorded. Imaging US, bladder 2022 023 [email or web address] [facility] [place], [address], [place], [address], 3 15:51:06 US, bladder 2022 023 [email or web address] [facility] [place], [address], [place], [address], 3 15:44:42 Medication Orders Gemtesa 75 mg tablet 2022 023 [facility], [address] [address] [place] [address], [address], 15:50:33 Patient TargetsNo targets recorded. Patient InstructionsNo instructions recorded. Reason for Referral None Reported. Results Created Date Observation Date Name Description Value Unit Range Abnormal Flag Note LastModifiedBy Organization Detail LastModifiedTime 04/06/19 22 04/06/2021 urina lysis , dipst ick Nitrite (reference rage: negative mg/dl) negati ve Not Available _[address], [address], 04/06/2021 11:49:21 04/06/19 22 04/06/2021 urina lysis , dipst ick Urobilinogen (reference range: 0.2-1 mg/dl) 0.2 Not Available [address], [address], 04/06/2021 11:49:21 04/06/19 22 04/06/2021 urina lysis , dipst ick Protein (reference range: negative mg/dl) 300 Not Available [address], [address], 04/06/2021 11:49:21 04/06/19 22 04/06/2021 urina lysis , dipst ick pH (reference range: 5-7) 6.0 Not Available [address], [address], 04/06/2021 11:49:21 04/06/19 22 04/06/2021 urina lysis , dipst ick Blood (reference range: negative Murphy/ l) Modera te Not Available [address], [place] [address] [address], [place], [address], 04/06/2021 11:49:21 04/06/19 22 04/06/2021 urina lysis , dipst ick Specific [place] (reference range: 1.005-1.030) 1.020 Not Available Z_[address], [place] [address] [address], [place], [address], 04/06/2021 11:49:21 04/06/19 22 04/06/2021 urina lysis , dipst ick Ketone (reference range: negative mg/dl) Trace Not Available Z_[address], [address], 04/06/2021 11:49:21 04/06/19 22 04/06/2021 urina lysis , dipst ick Bilirubin (reference range: negative mg/dl) Negati ve Not Available [address] [address], [place], [address], 04/06/2021 11:49:21 04/06/19 22 04/06/2021 urina lysis , dipst ick Glucose (reference range: negative mg/dl) Negati ve Not Available [address], [address], 04/06/2021 11:49:21 04/06/19 22 04/06/2021 urina lysis , dipst ick Appearance Clear Not Available [address], [address], 04/06/2021 11:49:21 04/06/19 22 04/06/2021 urina lysis , dipst ick Color Yellow Not Available [address], [address], 04/06/2021 11:49:21 04/05/19 23 04/05/2022 urina lysis , dipst ick Leukocytes (reference range: negative tre/ l) Negati ve Not Available [address], [address], 04/05/2022 13:42:35 04/05/19 23 04/05/2022 urina lysis , dipst ick Nitrite (reference rage: negative mg/dl) negati ve Not Available [address], [address], 04/05/2022 13:42:35 04/05/19 23 04/05/2022 urina lysis , dipst ick Urobilinogen (reference range: 0.2-1 mg/dl) 1 Not Available [address], [address], 04/05/2022 13:42:35 04/05/19 23 04/05/2022 urina lysis , dipst ick Protein (reference range: negative mg/dl) 300 Not Available [address], [address], 04/05/2022 13:42:35 04/05/19 23 04/05/2022 urina lysis , dipst ick pH (reference range: 5-7) 7.0 Not Available [address], [address], 04/05/2022 13:42:35 04/05/19 23 04/05/2022 urina lysis , dipst ick Blood (reference range: negative Murphy/ l) Modera te Not Available [address], [address], [address], 04/05/2022 13:42:35 04/05/19 23 04/05/2022 urina lysis , dipst ick Specific [place] (reference range: 1.005-1.030) 1.025 Not Available Z_[address], [address] , [place], [address], 04/05/2022 13:42:35 04/05/19 23 04/05/2022 urina lysis , dipst ick Ketone (reference range: negative mg/dl) Negati ve Not Available [address], [address], [address], 04/05/2022 13:42:35 04/05/19 23 04/05/2022 urina lysis , dipst ick Bilirubin (reference range: negative mg/dl) Negati ve Not Available [address], [address] , [place], [address], 04/05/2022 13:42:35 04/05/19 23 04/05/2022 urina lysis , dipst ick Glucose (reference range: negative mg/dl) 500 Not Available [address], [address], [address], 04/05/2022 13:42:35 04/05/19 23 04/05/2022 urina lysis , dipst ick Appearance Clear Not Available Z_hrc _[facility] [address] [place] [address], [address], [place], [address], 04/05/2022 13:42:35 04/05/19 23 04/05/2022 urina lysis , dipst ick Color Yellow Not Available Z_hrc_ g [address], [facility], [place], [address], 04/05/2022 13:42:35 06/08/19 23 06/07/2022 urina lysis , dipst ick Leukocytes (reference range: negative tre/ l) Negati ve Not Available [facility] [address] [place] [address] [address], [place], [address], 06/07/2022 13:47:03 06/08/19 23 06/07/2022 urina lysis , dipst ick Nitrite (reference rage: negative mg/dl) negati ve Not Available [facility] [address] [place] [address] [address], [place], [address], 06/07/2022 13:47:03 06/08/19 23 06/07/2022 urina lysis , dipst ick Urobilinogen (reference range: 0.2-1 mg/dl) 0.2 Not Available s_ g [facility] [address] [place] [address] [address], [place], [address], 06/07/2022 13:47:03 06/08/19 23 06/07/2022 urina lysis , dipst ick Protein (reference range: negative mg/dl) Modera te Not Available [facility] [address] [place] [address] [address], [place], [address], 06/07/2022 13:47:03 06/08/19 23 06/07/2022 urina lysis , dipst ick pH (reference range: 5-7) 6.0 Not Available [facility] [place] [address], [place], [address], 06/07/2022 13:47:03 06/08/19 23 06/07/2022 urina lysis , dipst ick Blood (reference range: negative Murphy/ l) Small Not Available [facility] [address] [place] [address] [address], [place], [address], 06/07/2022 13:47:03 06/08/19 23 06/07/2022 urina lysis , dipst ick Specific [place] (reference range: 1.005-1.030) 1.015 Not Available [facility] [address] [place] [address] [address], [place], [address], 06/07/2022 13:47:03 06/08/19 23 06/07/2022 urina lysis , dipst ick Ketone (reference range: negative mg/dl) Negati ve Not Available [facility] [address] [place] [address] [address], [place], [address], 06/07/2022 13:47:03 06/08/19 23 06/07/2022 urina lysis , dipst ick Bilirubin (reference range: negative mg/dl) Negati ve Not Available [facility] [address] [place] [address] [address], [place], [address], 06/07/2022 13:47:03 06/08/19 23 06/07/2022 urina lysis , dipst ick Glucose (reference range: negative mg/dl) Negati ve Not Available [facility] [address] [place] [address] [address], [place], [address], 06/07/2022 13:47:03 06/08/19 23 06/07/2022 urina lysis , dipst ick Appearance Clear Not Available [facility] [place] [address], [place], [address], 06/07/2022 13:47:03 06/08/19 23 06/07/2022 urina lysis , dipst ick Color Yellow Not Available [facility] [place] [address], [place], [address], 06/07/2022 13:47:03 07/20/19 23 07/19/2022 urina lysis , dipst ick Leukocytes (reference range: negative tre/ l) Negati ve Not Available [facility] [place] [address] [place] [address] [facility], [place], [address], 07/19/2022 13:39:49 07/20/19 23 07/19/2022 urina lysis , dipst ick Nitrite (reference rage: negative mg/dl) negati ve Not Available [facility] [place] [address] [place] [address] [address] [facility], [place], [address], 07/19/2022 13:39:49 07/20/19 23 07/19/2022 urina lysis , dipst ick Urobilinogen (reference range: 0.2-1 mg/dl) 4 Not Available [facility] [place] [address] [facility], [place], [address], 07/19/2022 13:39:49 07/20/19 23 07/19/2022 urina lysis , dipst ick Protein (reference range: negative mg/dl) Large Not Available [facility] [place] [address] [place] [address] [facility], [place], [address], 07/19/2022 13:39:49 07/20/19 23 07/19/2022 urina lysis , dipst ick pH (reference range: 5-7) 7.0 Not Available [facility] [address], [place], [address], 07/19/2022 13:39:49 07/20/19 23 07/19/2022 urina lysis , dipst ick Blood (reference range: negative Murphy/ l) Modera te Not Available [facility] [address] [place] [address] [address], [place], [address], 07/19/2022 13:39:49 07/20/1907/19/2022 urina lysis , dipst ick Specific [place] (reference range: 1.005-1.030) 1.025 Not Available s _gmg [facility] [address] [place], [place] [address]ph[address], [place], [address], 07/19/2022 13:39:49 07/20/19 23 07/19/2022 urina lysis , dipst ick Ketone (reference range: negative mg/dl) Negati ve Not Available s_gmg [facility] [address] [place] [address] [address], [place], [address], 07/19/2022 13:39:49 07/20/19 23 07/19/2022 urina lysis , dipst ick Bilirubin (reference range: negative mg/dl) Negati ve Not Available s_[facility] [address] [place] [address] [address], [place], [address], 07/19/2022 13:39:49 07/20/19 23 07/19/2022 urina lysis , dipst ick Glucose (reference range: negative mg/dl) Negati ve Not Available s_[facility] [address] [place] [address] [address], [place], [address], 07/19/2022 13:39:49 07/20/19 23 07/19/2022 urina lysis , dipst ick Appearance Clear Not Available s_[facility] [address] [place] [address] [address], [place], [address], 07/19/2022 13:39:49 07/20/19 23 07/19/2022 urina lysis , dipst ick Color Pale Yellow Not Available s_[facility] [address] [facility] [address], [place], [address], 07/19/2022 13:39:49 04/05/19 23 04/05/2022 US, bladd er No observ ation record ed. [id number] [facility] [place] [address] [place] [address], [address], [place], [address], 05/19/2022 23:31:10 06/08/19 23 06/07/2022 US, bladd er No observ ation record ed. [facility] [address] [place] [address] [address], [place], [address], 06/14/2022 11:04:39 07/20/19 23 07/19/2022 US, bladd er No observ ation record ed. [email or web address] [facility] [address] [place] [address] [address], [place], [address], 07/26/2022 15:05:51 Result Notes None recorded. Problems Name Problem SNOMED Code Status Onset Date Resolution Date Notes Provider Name and Address Organization Details Recorded Time Increased frequency of urination 218611682 Active 023 Darshan Campos NP [address], [place], [address] , [facility] 13:47:00 Fatigue 23490184 Active 023 Darshan Campos NP [address] [facility], [address], [place], [address], [facility] [employer] [facility] 3 15:46:21 Problem Notes None recorded. Procedures Surgical History Date Name Laterality Status Provider Name and Address Organization Details Recorded Time Laminectomy completed Not Available [facility] 05/19/2022 23:28:48 Tonsillectomy completed Not Available [facility] 05/19/2022 23:28:48 Back Surgery completed Not Available [facility] 05/19/2022 23:28:48 Imaging Results None recorded. Procedure Notes None recorded. Medical Equipment None Reported. Allergies Allergen ID Allergen Name Allergen Category Reaction Reaction Severity Criticality Documentation Date Start Date Code Code System Note Provider Name and Address Organization Details Recorded Time 25258 ropinirol e medicatio n Not available Not available Not available 05/19/2022 43931 RxNorm Not Available [facility] 3 23:31:00 38487 pramipexo le medicatio n Not available Not available Not available 05/19/2022 55498 1 RxNorm Not Available [facility] 3 23:31:00 59379 Iodinated contrast media (substanc e) medicatio n Not available Not available Not available 05/19/2022 71554 2004 SNOMED Not Available [facility] 3 23:31:00 89019 gabapenti n medicatio n Not available Not available Not available 05/19/2022 23312 RxNorm Not Available [facility] 3 23:31:00 Medications Name Sig Start Date Stop Date Status Note LastModified by Organization Details LastModified Time cyclobenzap rine 10 mg tablet TAKE 1 TABLET BY MOUTH TWICE DAILY NEEDED FOR MUSCLE SPASM 04/05 completed Not Available Not Available Not Available doxycycline hyclate 100 mg capsule TAKE 1 CAPSULE BY MOUTH ONCE DAILY 04/05 completed Not Available Not Available Not Available naproxen 375 mg tablet TAKE 1 TABLET BY MOUTH TWICE DAILY 12/22 completed Not Available Not Available Not Available atorvastati n 10 mg tablet TAKE 1 TABLET BY MOUTH ONCE DAILY active Not Available Not Available No t Available oxybutynin chloride ER 10 mg tablet,exte nded release 24 hr Take 1 tablet every day by oral route for 30 days. 05/17 completed Not Available Not Available Not Available metoprolol succinate ER 50 mg tablet,exte nded release 24 hr TAKE 1 TABLET BY MOUTH ONCE DAILY active Not Available Not Available No t Available hydrocodone 5 mg-acetamin ophen 325 mg tablet TAKE 1 TO 2 TABLETS BY MOUTH EVERY 6 HOURS NEEDED FOR PAIN 04/05 completed Not Available Not Available Not Available prednisone 5 mg tablet TAKE 2 TABLETS BY MOUTH ONCE DAILY IN THE MORNING ON DAYS 1-4, THEN 1 TABLET BY MOUTH ONCE DAILY IN THE MORNING ON DAYS 5-7 active Not Available Not Available No t Available triamcinolo ne acetonide 0.025 % topical cream APPLY CREAM TOPICALLY TWICE DAILY 04/05 completed Not Available Not Available Not Available tamsulosin 0.4 mg capsule Take 1 capsule every day by oral route. 04/05 completed Not Available Not Available Not Available metformin 1,000 mg tablet TAKE 1 TABLET BY MOUTH TWICE DAILY active Not Available Not Available No t Available lisinopril 10 mg tablet TAKE 1 TABLET BY MOUTH ONCE DAILY active Not Available Not Available No t Available prednisone 50 mg tablet TAKE 1 TABLET BY MOUTH 13 HOURS BEFORE CONTRAST, 1 TABLET 7 HOURS BEFORE CONTRAST, 1 TABLET 1 HOUR BEFORE CONTRAST 04/05 completed Not Available Not Available Not Available nicotine 21 mg/24 hr daily transdermal patch APPLY 1 PATCH TOPICALLY ONCE DAILY FOR 28 DAYS FOLLOW WITH 1-14MG PATCH DAILY FOR 14 DAYS, THEN 1-7MG PATCH DAILY FOR 14 DAYS 04/05 completed Not Available Not Available Not Available metoprolol succinate ER 25 mg tablet,exte nded release 24 hr TAKE 1 TABLET BY MOUTH ONCE DAILY 04/05 completed Not Available Not Available Not Available azelastine 137 mcg (0.1 %) nasal spray USE 1 SPRAY(S) IN EACH NOSTRIL EVERY 12 HOURS active Not Available Not Available No t Available ibuprofen 600 mg tablet TAKE 1 TABLET BY MOUTH EVERY 6 HOURS NEEDED FOR PAIN 05/17 completed Not Available Not Available Not Available methylpredn isolone 4 mg tablets in a dose pack TAKE BY MOUTH DIRECTED ON INSIDE OF PACKAGE 12/22 completed Not Available Not Available Not Available fluticasone propionate 50 mcg/actuati on nasal spray,suspe nsion USE 1 TO 2 SPRAY(S) IN EACH NOSTRIL TWICE DAILY active Not Available Not Available No t Available glipizide 5 mg tablet TAKE 1 TABLET BY MOUTH ONCE DAILY IN THE MORNING active Not Available Not Available No t Available nicotine 7 mg/24 hr daily transdermal patch active Not Available Not Available Not Available alfuzosin ER 10 mg tablet,exte nded release 24 hr TAKE 1 TABLET BY MOUTH ONCE DAILY active Not Available Not Available No t Available solifenacin 10 mg tablet TAKE 1 TABLET BY MOUTH ONCE DAILY active Not Available Not Available No t Available Janumet 50 mg-1,000 mg tablet TAKE 1 TABLET BY MOUTH ONCE DAILY 04/05 completed Not Available Not Available Not Available Cholestyram ine Light 4 gram oral powder DISSOLVE 1 SCOOP IN LIQUID AND TAKE BY MOUTH. DRINK TWICE DAILY WITH A MEAL. AVOID OTHER MEDS WITHIN 1 HOUR BEFORE OR 4-6 HOURS AFTER DOSE 04/05 completed Not Available Not Available Not Available OneTouch Verio test strips USE STRIP TO CHECK GLUCOSE TWICE DAILY active Not Available Not Available No t Available OneTouch Delica Plus Lancet 30 gauge USE TO CHECK GLUCOSE TWICE DAILY active Not Available Not Available No t Available Gemtesa 75 mg tablet Take by oral route for 90 days. 2022 active Not Available Not Available Not Avai lable Vitals Date Recorded Body mass index (BMI) Body height Oxygen saturation Oxygen saturation in Arterial blood by Pulse oximetry Heart rate Body temperature Body weight Systolic blood pressure Diastolic blood pressure Provider Name and Address Organization Details Last Updated DateTime 3 45.1 kg/m2 152.4 cm 93 % 93 % 127 /min 98.4 [degF] 914765. 84 g 172 mm[Hg] 104 mm[Hg] Not Available [facility] 3 23:29:16 Date Recorded Body mass index (BMI) Body height Body temperature Body weight Provider Name and Address Organization Details Last Updated DateTime 04/06/2021 43.4 kg/m2 152.4 cm 98.9 [degF] 254395.5 1 g Not Available [facility] 05/19/2022 23:29:17 Date Recorded Body mass index (BMI) Body height Oxygen saturation Oxygen saturation in Arterial blood by Pulse oximetry Heart rate Body temperature Body weight Systolic blood pressure Diastolic blood pressure Provider Name and Address Organization Details Last Updated DateTime 3 46.7 kg/m2 152.4 cm 93 % 93 % 103 /min 98.1 [degF] 036314. 58 g 155 mm[Hg] 91 mm[Hg] Not Available [facility] 3 23:29:16 Date Recorded Body height Provider Name an d Address Organization Details Last Updated DateTime 06/07/2022 152.4 cm Magalis Sanchez [facility] [employer] [facility] 06/07/2022 15:11:41 Date Recorded Body mass index (BMI) Body weight Oxygen saturation Oxygen saturation in Arterial blood by Pulse oximetry Heart rate Body temperature Provider Name and Address Organization Details Last Updated DateTime 3 46.5 kg/m2 711166. 98 g 93 % 93 % 113 /min 98.1 [degF] Trenton Craven [facility] [employer] [facility] 3 15:24:17 Date Recorded Body height Provider Name an d Address Organization Details Last Updated DateTime 07/19/2022 152.4 cm Magalis Sanchez MA [facility] [employer] [facility] 07/19/2022 15:28:39 Date Recorded Heart rate Oxygen saturation Oxygen saturation in Arterial blood by Pulse oximetry Body mass index (BMI) Body weight Body temperature Provider Name and Address Organization Details Last Updated DateTime 3 113 /min 95 % 95 % 44.1 kg/m2 114288. 88 g 97.9 [degF] [facility] 3 15:34:49 Social History Question Answer Notes LastModified by Organizat ion Details LastModified Time Tobacco Smoking Status Current Every Day Smoker Not Available [facility] 05/19/2022 23:28:30 What Is Your Level Of Caffeine Consumption? None [id number] Information not available 05/19/2022 What Is Your Current Pack Years? 30ormorepack years [id number] Information not available 05/19/2022 At What Age Did You Start Smoking Tobacco? 14 [id number] Information not available 05/19/2022 How Much Tobacco Do You Smoke? 1 PPD [id number] Information not available 05/19/2022 Has Tobacco Cessation Counseling Been Provided? No [id number] Information not available 05/19/2022 How Many Years Have You Smoked Tobacco? 40 [id number] Information not available 05/19/2022 Sex: Unknown Functional Status Question Answer Note LastModified by Organizat ion Details LastModified Time Do you use any illicit or recreational drugs? No [id number] Information not available 05/19/2022 Do you or have you ever used any other forms of tobacco or nicotine? No [id number] Information not available 05/19/2022 Mental Status None recorded. Family History Relationship Description Onset Age of this Age Resolved Age Notes LastModified by Organization Details LastModified Time Unspecified Relation Heart disease [id number] Not available 05/19/2022 23:28:49 Unspecified Relation Diabetes mellitus [id number] Not available 05/19/2022 23:28:49 Unspecified Relation Hypertensive disorder [id number] Not available 05/19/2022 23:28:49 Unspecified Relation Malignant neoplasm of urinary bladder [id number] Not available 05/19/2022 23:28:50 Unspecified Relation Severe chronic obstructive pulmonary disease [id number] Not available 05/19/2022 23:28:50 Medical History Condition Response CYSTITIS N BLINDNESS N RHEUMATIC FEVER N KIDNEY STONES N BLADDER PROBLEMS N Enlarged Prostate N SLEEP APNEA N MRSA N INFECTIOUS DISEASE N LUNG DISEASE/DISORDER N HEART ARRHYTHMIA N PROSTATE N INSOMNIA N HISTORY OF DRUG ABUSE N RADIATION / CHEMOTHERAPY N COPD Y HIGH CHOLESTEROL / HYPERLIPIDEMIA Y HYPERTHYROIDISM N UTI N BLOOD DISEASES N EDEMA N HYPOTHYROIDISM N SHINGLES N DEPRESSION (INCLUDING POST ) N BOWEL PROBLEMS N BACK / NECK PROBLEMS N HAVE YOU BEEN HOSPITALIZED OR SEEN IN [facility] IN THE PAST YEAR ? N STROKE/TIA N THYROID DISEASE N BENIGN PROSTATIC HYPERPLASIA N DIALYSIS N OBESITY N GERD/NAUSEA N ANEURYSM N OSTEOPOROSIS N URINARY/BLADDER/KIDNEY PROBLEMS N Increased Urination N CORONARY ARTERY DISEASE (CAD) N ARTHRITIS N USE OF BLOOD THINNERS N NO SIGNIFICANT PAST MEDICAL HISTORY N DIABETES, TYPE Y EMPHYSEMA N PARKINSON N GASTROINTESTINAL DISORDER N GASTROINTESTINAL BLEEDING N BLOOD CLOTS N Difficulty Urinating N HEPATITIS / LIVER DISEASE N ASTHMA N CATARACTS Y GOUT N SLEEP DISORDER N ALZHEIMER'S DISEASE N HERPES N ERECTILE DYSFUNCTION N SEIZURES/EPILEPSY N HEADACHES/MIGRAINES N GI PROBLEMS N PACEMAKER N Low Testosterone N HEART MURMUR N DIZZINESS N KIDNEY DISEASE N HEART DISEASE/HEART PROBLEMS N AIDS/HIV N MULTIPLE SCLEROSIS N LIVER DISEASE N MALE HYPOGONADISM N HYPERTENSION Y CANCER: SPECIFY N TOURETTE'S N BLOOD TRANSFUSION N ANESTHESIA COMPLICATIONS N ANEMIA/BLOOD DISORDER N ATRIAL FIBRILLATION N AUTOIMMUNE DISEASE N TUBERCULOSIS N GLAUCOMA N Past Encounters Encounter ID Performer Location Encounter Start Date Encounter Closed Date Diagnosis/Indication Diagnosis SNOMED-CT Code Diagnosis ICD10 Code Diagnosis Note [id number] Darshan Campos NP [facility] [address] [place] [address] 11/06/2020 00:00:00 11/06/2020 15:18:57 [id number] Darshan Campos NP [facility] [address] [address] 12/22/2020 00:00:00 12/23/2020 09:54:41 [id number] Darshan Campos NP [facility] [address] [address] 04/06/2021 00:00:00 04/13/2021 10:42:03 [id number] Darshan Campos NP [facility] [address] [address] 04/05/2022 00:00:00 04/05/2022 14:49:21 [id number] Darshan Campos NP [facility] [address] [address] 05/17/2022 00:00:00 05/17/2022 15:14:27 [id number] Darshan Campos NP [facility] [address] [address] 06/07/2022 14:57:59 06/07/2022 15:44:42 Increased frequency of urination [id number] R35.0 continue to avoid bladder irritants. Has failed 2 anticholin ergic medication s. Patient has history of hypertensi on persistent ly greater than 140/80. Myrbetriq contraindi cated. Patient given samples of Gemtesa. medication administra tion, use, side effects discussed. Follow up in 6 weeks for re-evaluat ion. Fatigue [id number] R53.83 awaiting final results of testostero ne. I will call with results. Discussed that he has polycythem ia. May be related to sleep apnea. We discussed that this will need to be under control prior to starting any testostero ne replacemen t therapy due to increased risk of DVT, mi, and/or CVA. Screening for malignant neoplasm of prostate [id number] Z12.5 PSA stable at 1.0 [id number] Darshan Campos NP [facility] [place] [address] [place] [address] 07/19/2022 15:21:07 07/19/2022 15:51:06 Increased frequency of urination [id number] R35.0 continue to avoid bladder irritants. Has failed 2 anticholin ergic medication s. Patient has history of hypertensi on persistent ly greater than 140/80. Myrbetriq contraindi cated. Patient given samples of Gemtesa. medication administra tion, use, side effects discussed. Follow up in 6 weeks for re-evaluat ion. 07/19/22Fail ed two anticholin ergics. Myrbetriq contraindi cated d/t uncontroll ed bp. Symptoms stable on Gemtesa. Plan to continue. Fatigue [id number] R53.83 awaiting final results of testostero ne. I will call with results. Discussed that he has polycythem ia. May be related to sleep apnea. We discussed that this will need to be under control prior to starting any testostero ne replacemen t therapy due to increased risk of DVT, mi, and/or CVA. 07/19/22Need s total T. I will call with results. Screening for malignant neoplasm of prostate [id number] Z12.5 PSA stable at 1.0 Health Concerns Section Related Observation LastModified by Organization Detai ls LastModified Time None Recorded Concern Status LastModified by Organization Details LastModified Time None Recorded Advance Directives Directive None Recorded Payers Insurance Date Sequence Insurance Name Policy Number Policy Lovelace Covered Member ID Lovelace Member ID Guarantor Name 07/27/2022 1 [facility] ON OR AFTER 09/18/20 (MEDICAID REPLACEMENT - HMO) Leopoldo Yo [id number] Leopoldo Yo Notes Date Note Type Note Provider Name and Address Organization Details Recorded Time 06/07/2022 text/html 11/06/2020This i s a 54-year-old male patient that was referred by his PCP for urinary leakage and weak stream. He states that this has been going on for about the past 6 months. He reports that he feels like he cannot empty his bladder all of the way and has to stand at the toilet for 3-4 minutes after he finishes voiding to ensure that it is empty. He complains of some post-void dribbling. He states that he will occasionally leak urine whenever he coughs or sneezes. He does not currently wear pads, but has to change his underwear about 2x a day. He also states that his stream is slow whenever he voids. He denies any dysuria, gross hematuria, or urgency. He reports that he has to void about every hour during the day and does not have to wake up at night to void.:-DURATION: 6 months-MOST BOTHERSOME SYMPTOM: Leakage-URINARY INCONTINENCE: Dribbling after urination-IPSS: 13 (4's weak stream and incomplete emptying)-QOL: 3-CURRENT OAB MEDS: Denies-CURRENT BPH/LUTS MEDS: Denies-PREVIOUSLY TRIALED MEDS: Denies-DIABETES: Yes--DM2-- Last A1c- was 6.4 around 2019-NEUROLOGIC ISSUES: Laminectomy L4-L5-1995 chronic lower back pain-GI ISSUES: Denies-PRIOR PELVIC/ OPERATIONS: Denies-PSA: PCP has ordered to be drawn in January-FH of PROSTATE CANCER: Denies. Father from bladder cancer. Diagnosed and passed at age 75-PRIOR BPH WORKUP: Denies-BLOOD THINNERS: Denies-SMOKING HISTORY: 1/2 PPD for about 40 years. States he used to smoke 2 PPDUA- neg LE, neg nitrite, small bloodPVR- 11ml12/22/20Patient returns to office for follow-up on post-void dribbling and frequency. States that he is able to hold urine for longer during the day and the post void dribbling is improved about 80%. He states that he only has to change his underwear once a day. Stream and flow is improved. Denies dysuria or hematuria. 04/06/20Patient presents to the office for follow-up on post void dribbling. He states since starting Alfusosin he has not had any urinary leakage. He denies any side effects of medication. Urine dip still shows moderate blood.UA- neg LE, neg nitrite, moderate bloodPVR-22 ccIPSS: 11QoL: 4 04/05/21Patient returns to the office for yearly follow-up. He is on alfuzsoin 10 mg daily. He states he was doing well until the last three months. He c/o small frequent voids, urgency, and UUI. Voids every hour during the day and wakes up 3x a night starting at 0400.UA- neg LE, neg nitrite, mod bloodPVR-34cc 05/17/22Patient presents to the office for 6 week follow-up on urinary frequency / urgency. He was started on oxybutynin and reports that he did not notice any symptom improvement. He reports that he did not have any side effects from the medication. No prior medications trialed. Continues to have small frequent voids and occasional urinary urge incontinence. Still nocturia x3.Of note, patient reports back in 2014 he was seeing a physician that jojo a testosterone level on him and reports that the result came back around 50. He reports that this was never discussed to treated. He would like to have testosterone level checked. He does complain of fatigue, decreased libido, central weight gain, and erectile dysfunction.he had urine microscopy checked last visit which was negative for any microscopic blood.UA- negative LE, negative nitrite, trace bloodPVR-44 cc 06/07/22Patient presents to the office for 6 week follow-up on urinary frequency / urgency. Patient was started on solifenacin 10 mg daily. He reports no improvement in urinary symptoms. He denies any side effects of therapy. He has failed oxybutynin. He is also here to review laboratory workup for fatigue. His testosterone is still pending. PSA is stable at 1.0. His hemoglobin is 17.9 and hematocrit is 52.0. He reports history of sleep apnea but is not able to use his CPAP. He is currently being worked up by ENT. UA -negative LE, negative nitrite, small bloodPVR- 27 ccIPSS/QoL- 18/3 (4 freq; 3 IE, int, WS, noct) Darshan Campos, RYLIE [address] [facility] [address], [place], [address], [place] - [facility] [employer] 06/07/2022 15:50:06 07/19/2022 text/html 11/06/2020This i s a 54-year-old male patient that was referred by his PCP for urinary leakage and weak stream. He states that this has been going on for about the past 6 months. He reports that he feels like he cannot empty his bladder all of the way and has to stand at the toilet for 3-4 minutes after he finishes voiding to ensure that it is empty. He complains of some post-void dribbling. He states that he will occasionally leak urine whenever he coughs or sneezes. He does not currently wear pads, but has to change his underwear about 2x a day. He also states that his stream is slow whenever he voids. He denies any dysuria, gross hematuria, or urgency. He reports that he has to void about every hour during the day and does not have to wake up at night to void.:-DURATION: 6 months-MOST BOTHERSOME SYMPTOM: Leakage-URINARY INCONTINENCE: Dribbling after urination-IPSS: 13 (4's weak stream and incomplete emptying)-QOL: 3-CURRENT OAB MEDS: Denies-CURRENT BPH/LUTS MEDS: Denies-PREVIOUSLY TRIALED MEDS: Denies-DIABETES: Yes--DM2-- Last A1c- was 6.4 around 2019-NEUROLOGIC ISSUES: Laminectomy L4-L5-1995 chronic lower back pain-GI ISSUES: Denies-PRIOR PELVIC/ OPERATIONS: Denies-PSA: PCP has ordered to be drawn in January-FH of PROSTATE CANCER: Denies. Father from bladder cancer. Diagnosed and passed at age 75-PRIOR BPH WORKUP: Denies-BLOOD THINNERS: Denies-SMOKING HISTORY: 1/2 PPD for about 40 years. States he used to smoke 2 PPDUA- neg LE, neg nitrite, small bloodPVR- 11ml10/07/09Patient returns to office for follow-up on post-void dribbling and frequency. States that he is able to hold urine for longer during the day and the post void dribbling is improved about 80%. He states that he only has to change his underwear once a day. Stream and flow is improved. Denies dysuria or hematuria. 04/06/20Patient presents to the office for follow-up on post void dribbling. He states since starting Alfusosin he has not had any urinary leakage. He denies any side effects of medication. Urine dip still shows moderate blood.UA- neg LE, neg nitrite, moderate bloodPVR-22 ccIPSS: 11QoL: 4 04/05/21Patient returns to the office for yearly follow-up. He is on alfuzsoin 10 mg daily. He states he was doing well until the last three months. He c/o small frequent voids, urgency, and UUI. Voids every hour during the day and wakes up 3x a night starting at 0400.UA- neg LE, neg nitrite, mod bloodPVR-34cc 05/17/22Patient presents to the office for 6 week follow-up on urinary frequency / urgency. He was started on oxybutynin and reports that he did not notice any symptom improvement. He reports that he did not have any side effects from the medication. No prior medications trialed. Continues to have small frequent voids and occasional urinary urge incontinence. Still nocturia x3.Of note, patient reports back in 2014 he was seeing a physician that jojo a testosterone level on him and reports that the result came back around 50. He reports that this was never discussed to treated. He would like to have testosterone level checked. He does complain of fatigue, decreased libido, central weight gain, and erectile dysfunction.he had urine microscopy checked last visit which was negative for any microscopic blood.UA- negative LE, negative nitrite, trace bloodPVR-44 cc 06/07/22Patient presents to the office for 6 week follow-up on urinary frequency / urgency. Patient was started on solifenacin 10 mg daily. He reports no improvement in urinary symptoms. He denies any side effects of therapy. He has failed oxybutynin. He is also here to review laboratory workup for fatigue. His testosterone is still pending. PSA is stable at 1.0. His hemoglobin is 17.9 and hematocrit is 52.0. He reports history of sleep apnea but is not able to use his CPAP. He is currently being worked up by ENT. UA -negative LE, negative nitrite, small bloodPVR- 27 ccIPSS/QoL- 18/3 (4 freq; 3 IE, int, WS, noct)07/19/22Patient returns to the office today for follow-up. He was started on Gemtesa for urinary urgency/frequency and nocturia. He reports that medication has been working well. He is voiding less during the day and he is now only waking up x1 a night. He denies any side effects from the medication. He is also being worked up for low T. He had labs completed, but lab only resulted free psa which was normal. Will need repeat total t. Darshan Campos, RYLIE [address] [facility], [facility] [address], [place], [address], [facility] - [facility] [employer] 07/26/2022 16:36:10
--- OUTSIDE RECORDS SUMMARY | 2024-09-03 16:43 | XMS_ITS | Encounter Summary ---
Author Organization [facility] Address [address] [place] [address] Phone Care Team Providers Care Animal Attendants And Trainers Name Role Phone Nader Richardson MD Primary Care Provider Kwame Peres MD Primary Care Provider Keyshawn Bobo DO Primary Care Provider [phone] Encounter Details Date Type Department Care Team (Late st Contact Info) Description 02/21/2020 Telephone [facility] [address] [place] [address] [place] [address] Kwame Peres MD [address] [place] [phone] Social History Tobacco Use Types Packs/Day [...] this month. He is reschedule for 12/17. E HEALTHCARE MANAGER documented in this encounter Plan of Treatment Not on file documented as of this encounter Visit Diagnoses Not on filedocumented in this encounter Additional Health Concerns Assessment Noted Time PHQ-9 Depression Total Score: 0 02/23/20 19 2:27 PM NURSE HEALTHCARE MANAGER documented as of this encounter Care Teams Animal Attendants And Trainers Relationship Specialty [place] [address] [place] [address] PCP - General Family Medicine 02/22/19 09/02/20 [place] [address] [place] [address] PCP - General Oncology 09/03/20 09/03/20 Keyshawn Bobo DO [address] [address] PCP - General Internal Medicine 09/04/20 documented as of this encounter
--- OUTSIDE RECORDS SUMMARY | 2024-09-03 16:43 | XMS_ITS | Clinical Summary ---
Author Organization [facility] [address] [facility] Address [address] [place] [address] Care Team Providers Care Paintless Dent Repair Technician Name Role Phone Unavailable Primary Care Provider [...] Data STL ABSTRACTION Provider, Abstract 08/08/2024 Telephone [facility] - [address] [facility] [phone] [address] Lizzy Cooper MD NURSE ASSESSMENT 08/08/2024 Orders Only [facility] - [address] [facility] [phone] [address] Lizzy Cooper MD Obesity (BMI 30.0-34.9) (Primary Dx); Essential hypertension; Mixed hyperlipidemia; PATITO (obstructive sleep apnea); Chronic obstructive pulmonary disease, unspecified COPD type ([facility]); Diabetes mellitus of other type without complication, unspecified whether detention insulin use ([facility]) 07/24/2024 External Device Data STL ABSTRACTION Provider, Abstract 07/24/2024 External Device Data STL ABSTRACTION Provider, Abstract 07/24/2024 External Device Data STL ABSTRACTION Provider, Abstract 06/13/2024 Orders Only [facility] - [id number] [place] [phone] [address] Frederic Malik MD from Last [...] MD GI PROCEDURE ORDERA BLES Final Result [facility] - [address] [place] [address]# [id number] [address] from Last 3 Months or Most Recently Relevant to Health Maintenance Insurance [facility] MEDICAID
--- OUTSIDE RECORDS SUMMARY | 2024-09-03 16:43 | XMS_ITS | Clinical Summary ---
Author Organization [facility] Address [address] [place] [address] [place] [address] Phone Care Team Providers Care Dance Professor Name Role Phone Keyshawn Bobo DO Primary Care Provider [phone] Allergies Active Allergy Reactions Criticality Noted Date [...] 09/01/2023 2:24 PM CDT Plan of Treatment Health Maintenance Due Date Last Done Comments Hepatitis C Virus (HCV) Screening 1965 TdaP Immunization 1965 Pneumococcal Immunization (5 0+ years) (1 of 2 - PCV) 11/16/1982 Cologuard 11/16/2008 Colonoscopy 11/16/2008 Colorectal Cancer Screening 11/16/2008 Immunochemical Fecal Occult Blood 11/16/2008 Zoster Immunization (1 of 2) 11/16/2013 PSA Discussion 11/16/2018 SARS-COV-2 Immunization (3 - season) 2023 06/23/2020, 05/30/2020 Influenza Immunization (Seas [...] Insurance MEDICAID [employer] Care Teams Dance Professor Relationship Specialty Start Date End Date Keyshawn Bobo DO [address] [facility] [address] [place] [address] PCP - General Internal Medicine 09/04/20
--- OUTSIDE RECORDS SUMMARY | 2024-09-03 16:43 | XMS_ITS | Encounter Summary ---
Author Organization [facility] [place] Address [address] [place] [address] Care Team Providers Care Campus Manager Name Role Phone Hoang Bernal MD Primary Care Provider [phone] Reason for Visit * Reason Onset Date Comments Appointment 03/30/2024 Encounter Details Date Type Department Care Team (Late st Contact Info) Description 03/30/2024 Telephone [facility] [address] [place] [address] Portillo Ward MD [facility] DEPT [place] [address] Appointment Social History Tobacco Use Types Packs/Day Years Used Date Smoking Tobacco: Every Day Cigarettes 0.5 48.5 Started: 1978 Smokeless Tobacco: Never Alcohol Use [...] POST OP appointment. Please assist and advise E KEEPER documented in this encounter Plan of Treatment Upcoming Encounters Date Type Department Care Team (Late st Contact Info) Description 01/17/2025 1:15 PM CDT Office Visit [facility] - [facility]mology [address] [place] [phone] Fly Redding MD [address] [place] [address] DEPT [place] [address] documented as of this encounter Visit Diagnoses Not on filedocumented in this encounter Care Teams Campus Manager Relationship Specialty Start Date End Date Hoang Bernal MD [address] [place] [address] PCP - General Family Medicine 02/09/24 documented as of this encounter
--- OUTSIDE RECORDS SUMMARY | 2024-09-03 16:43 | XMS_ITS | Clinical Summary ---
Author Organization [facility] Address [address] [place] [address] Care Team Providers Care Personnel Administrator Name Role Phone Hoang Bernal MD Primary Care Provider [phone] Source Comments [facility],non-owned Affiliates and Associated Physician Practices is amultiple site organization consisting of ambulatory clinics and hospital sitesin [place], [place], [place] and [place]. This disclosure is being madepursuant to the Care Everywhere program and may not contain all information available regarding this patient. Last updated 17.[facility] Allergies Active Allergy Reactions Criticality Noted Date [...] tablet by mouth once daily Active Zenpep 92614-132449 units CPEP TAKE 1 CAPSULE BY MOUTH [...] Description 07/17/2024 2:15 PM CDT Office Visit [facility] - Ophthalmology [address] [place] [phone] Fly Redding MD Type 2 diabetes mellitus without retinopathy (HCC) (Primary Dx); PVD (posterior vitreous detachment), right [H43.811] 07/17/2024 2:10 PM CDT Clinical Support [facility] - Ophthalmology [address] [place] [phone] Fly Redding MD Type 2 diabetes mellitus without retinopathy (HCC) (Primary Dx) 07/17/2024 Travel from Last 3 Months Social History Tobacco Use Types Packs/Day Years Used Date Smoking Tobacco: Every Day Cigarettes 0.5 48.5 Started: 1978 Smokeless Tobacco: Never Tobacco Cessation:Ready [...] Comments Blood Pressure 145/76 04/12/2024 11:39 AM SAMPLE TAILOR Pulse 88 04/12/2024 11:39 AM SAMPLE TAILOR Temperature 36.6 C (97.9 F) 04/12/2024 11:29 AM SAMPLE TAILOR Respiratory Rate 16 04/12/2024 11:39 AM SAMPLE TAILOR Oxygen Saturation 94% 04/12/2024 11:39 AM SAMPLE TAILOR Inhaled Oxygen Concentration - - Weight 100.2 kg (221 lb) 04/12/2024 8:49 AM SAMPLE TAILOR Height 172.7 cm (5' 8) 04/12/2024 8:49 AM SAMPLE TAILOR Body Mass Index 33.6 04/12/2024 8:49 AM SAMPLE TAILOR Plan of Treatment Upcoming Encounters Date Type Department Care Team (Late st Contact Info) Description 01/17/2025 1:15 PM CDT Office Visit [facility] [address] [place] [phone] Fly Redding MD [address] [place] [address] [place] [address] Health Maintenance Due Date Last Done Comments [...] this topic Medical Devices Implanted Type Area Project Technician Device Identifier Shelf Expiration Date Model / Serial / Lot Clareon Uv Iol [id number] +18.0 D Implanted:Qty: 1 on 03/29/2024 by Portillo Ward MD at [facility] Right: Eye [employer] 07/19/2027 [id number] +18.0 D / [id number] / N/A Clareon Iol [id number] 18.5 Implanted:Qty: 1 on 04/12/2024 by Portillo Ward MD at [facility] Left: Eye 08/07/2027 [id number] / [id number] / Procedures Procedure Name Priority Date/Time Associated Diagnosis Comments GLUCOSE - POINT OF CARE Routine 04/12/2024 8:51 AM SAMPLE TAILOR from Last 3 Months or Most Recently Relevant to Health Maintenance Results * (ABNORMAL) GLUCOSE - POINT OF CARE (04/12/2024 8:51 AM SAMPLE TAILOR) [facility] Glucose WB/POC 115(H) 70 - 99 mg/dL 04/12/2024 8:53 AM SAMPLE TAILOR [facility] Specimen Type Venous 04/12/2024 8:53 AM SAMPLE TAILOR [facility] Blood BLOOD SPECIMEN / Unknown 04/12/2024 8:51 AM SAMPLE TAILOR 04/12/2024 8:52 AM SAMPLE TAILOR us Portillo Ward MD LAB - POINT OF CARE ORDERABLE S Final Result [facility] [address] [place] [address], [facility] [phone] from Last 3 Months or Most Recently Relevant to Health Maintenance Insurance [facility] Care Teams Personnel Administrator Relationship Specialty Start Date End Date Hoang Bernal MD [address] [place] [address] PCP - General Family Medicine 02/09/24
[2024-09-07 16:36] LABS: Reference Lab Test Name Urine Amylase
[2024-09-07 16:38] LABS: Reference Lab Test Result 573
== END 2024-09-03 15:49 | disposition home or self-care (01) ==
LOC: ANHLAB 15:50
PROVIDERS: PCP Family Medicine; Visit Provider Nurse Practitioner
DX: R74.8 Abnormal levels of other serum enzymes (principal)
CPT/HCPCS: 99199; 36415; 82150; 82570

== ENCOUNTER 2024-09-12 07:02 | Outpatient (CLI) | payer OTHER, SELFPAY ==
--- NOTE | ~2024-09-12 | CT_ITS ---
CT of the Abdomen and Pelvis: Indication: Elevated lipase and amylase Technique: 2.5 mm axial scans were obtained through the abdomen and pelvis following intravenous adm inistration of 100 cc of Omnipaque 350. Dose reduction technique was used on this scan by utilizing a utomated exposure control and iterative reconstruction technique. The dose-length product (DLP) was 1 125.59 mGy-cm. Findings: Scans through the lung bases are unremarkable. The liver, spleen, pancreas, gallbladder, adrenals and kidneys are within normal limits. There are at herosclerotic calcifications of the aorta. No lymphadenopathy. No bowel obstruction or bowel wall thickening. There is no evidence to suggest acute appendicitis. Images through the pelvis were performed. Urinary bladder unremarkable. No pelvic mass seen. No ascit es.There is advanced spondylosis at L5-S1. Impression: No significant abnormalities seen. Reviewed, dictated and finalized at [facility]. Impression: No significant abnormalities seen.
== END 2024-09-12 07:03 | disposition home or self-care (01) ==
PROVIDERS: PCP Family Medicine; Visit Provider Nurse Practitioner
DX: Q45.3 Other congenital malformations of pancreas and pancreatic duct (principal); R74.8 Abnormal levels of other serum enzymes
CPT/HCPCS: 74177; Q9967

== ENCOUNTER 2024-12-12 12:55 | Outpatient (CLI) | payer OTHER, SELFPAY ==
--- OUTSIDE RECORDS SUMMARY | 2024-12-12 12:59 | XMS_ITS | Clinical Summary ---
Author Organization [facility] Address [facility] [place] [address] Care Team Providers Care Welder Explosion Name Role Phone Nader Richardson MD Primary [...] 3 9 Active Blood Glucose Monitoring Suppl ([employer] VERIO) w/Device KitIndications:Typ e 2 diabetes mellitus with diabetic neuropathy, with long-term current use of insulin ([facility]) Use to check blood sugar twice [...] 90 tablet 1 0 Active Glucose Blood ([employer] VERIO) test stripIndications:T ype 2 diabetes mellitus with diabetic neuropathy, with long-term current use of insulin ([facility]) Use to check blood sugar twice daily. 200 strip 1 0 Active SITagliptin-metFOR MIN HCl (JANUMET) 50-1000 MG TabIndications:Typ e 2 diabetes mellitus with diabetic neuropathy, with long-term current use of insulin ([facility]) Take 1 tablet by mouth daily. 90 tablet 1 0 Active Lancets MiscIndications:Ty pe 2 diabetes mellitus with diabetic neuropathy, with long-term current use of insulin ([facility]) Use to check blood sugar twice daily. 1 Container 2 0 Active lisinopril 10 MG tabletIndications: Essential hypertension Take 1 tablet (10 mg total) by mouth daily. 90 tablet 1 0 Active Active Problems Problem Noted Date Diagnosed Date Polycythemia vera ([facility]) 02/12/2019 Type 2 diabetes mellitus wit h neurologic complication, with long-term current use of insulin ([facility]) 02/12/2019 Essential hypertension 02/12/2019 Other hyperlipidemia 02/12/2019 [...] A M CDT Height 175.3 cm (5' 9) 11/13/2019 9:50 AM CDT Body Mass Index 29.89 11/13/2019 9:50 AM CDT Plan of Treatment Health Maintenance Due Date Last Done Comments Colorectal Cancer Screening Colonoscopy (10 Years) 1965 Kidney Health Evaluation 1965 Lipid Panel 1963 Diabetes: Retinopathy Eye Exam 11/16/1981 Hepatitis C 11/16/1981 DTaP, Tdap and Td Vaccines (1 - Tdap) 11/16/1982 Pneumococcal Vaccine: 50+ Years (1 of 2 - PCV) 11/16/1982 Zoster Vaccines (1 of 2) 11/16/2013 Annual Physical 02/13/2020 02/12/2019 Hemoglobin A1C 05/15/2020 11/13/2019, 04/22, 06/27/2017, Additional history exists COVID-19 Vaccine (3 - 2024- season) 2024 06/23/2020, 05/30/2020 RSV Immunization or 60+ Years (1 - [...] HEMOGLOBIN, GLYCOSYLATED (11/13/2019) HGB A1C 6.8 % [facility] ([id number]), [place] 11/13/2019 us Ndaer Richardson MD LABORATORY Final Resul t [facility] ([id number]), [place] [address] [place] [address], [place] [phone] from Last 3 Months or Most Recently Relevant to Health Maintenance Insurance [employer] Care Teams Welder Explosion Relationship Specialty [place] [address] [place] [address] PCP - General FAMILY PRACTICE 02/08/19
--- OUTSIDE RECORDS SUMMARY | 2024-12-12 12:59 | XMS_ITS | Clinical Summary ---
Author Organization [facility] Address [address] [place] [address] Care Team Providers Care Parker Name Role Phone Hoang Bernal MD Primary Care Provider [phone] Source Comments [facility],non-owned Affiliates and Associated Physician Practices is amultiple site organization consisting of ambulatory clinics and hospital sitesin [place], [place], [place] and [place]. This disclosure is being madepursuant to the Care Everywhere program and may not contain all information available regarding this patient. Last updated 17.[facility] Allergies Active Allergy Reactions Criticality Noted Date [...] tablet by mouth once daily Active Zenpep 10948-361200 units CPEP TAKE 1 CAPSULE BY MOUTH [...] Encounters Date Type Department Care Team Description 10/08/2024 Telephone [facility] ENDOSCOPY [address] [place] [address] Fatou Sanders Procedure (Eus- No Show) 10/02/[address] [facility] - GI [address], [place] [address] Burke Martinez, MARK Appointment (procedure to confirm) from Last 3 Months Social History Tobacco Use Types Packs/Day Years Used Date Smoking Tobacco: Every Day Cigarettes 0.5 48.7 Started: 1978 Smokeless Tobacco: Never Tobacco Cessation:Ready [...] Comments Blood Pressure 145/76 04/12/2024 11:39 AM SCHEDULING ANALYST Pulse 88 04/12/2024 11:39 AM SCHEDULING ANALYST Temperature 36.6 C (97.9 F) 04/12/2024 11:29 AM SCHEDULING ANALYST Respiratory Rate 16 04/12/2024 11:39 AM SCHEDULING ANALYST Oxygen Saturation 94% 04/12/2024 11:39 AM SCHEDULING ANALYST Inhaled Oxygen Concentration - - Weight 100.2 kg (221 lb) 04/12/2024 8:49 AM SCHEDULING ANALYST Height 172.7 cm (5' 8) 04/12/2024 8:49 AM SCHEDULING ANALYST Body Mass Index 33.6 04/12/2024 8:49 AM SCHEDULING ANALYST Plan of Treatment Upcoming Encounters Date Type Department Care Team (Late st Contact Info) Description 01/17/2025 1:15 PM CDT Office Visit [facility] - Ophthalmology [address] [place] [phone] Fly Redding MD [address] [place] [address] [place] [address] Health Maintenance Due Date Last Done Comments COLOGUARD (AGES 45-75) - COL ON CA SCREENING 1965 CT COLONOGRAPHY - COLON CA SCREENING 1963 FIT - COLON CA SCREENING 1963 FLEX SIG - COLON CA SCREENING 1963 HIV SCREENING 11/16/1978 HEPATITIS C SCREENING 11/12/1981 DTAP/TDAP/TD VACCINES (1 - Tdap) 11/16/1982 PNEUMOCOCCAL VACCINE 50+ (1 of 2 - PCV) 11/16/1982 LUNG CANCER SCREENING 11/16/2013 ZOSTER VACCINE (1 of 2) 11/16/2013 COVID-19 VACCINE (3 - 2024-2 6 season) 2024 06/23/2020, 05/30/2020 INFLUENZA VACCINE (#1) 2024 SCREENING FOR DIABETES 04/12/2027 , 04/12/2024, 03/29/2024 COLON MONITORING 10/25/2033 10/26/2023 COLONOSCOPY - COLON CA SCREENING 10/25/2033 10/26/2023 Colorectal Cancer Screening 10/25/2033 Respiratory Syncytial Virus (RSV) Vaccine Pt: or [...] this topic Medical Devices Implanted Type Area Sap Data Analyst Device Identifier Shelf Expiration Date Model / Serial / Lot Clareon Uv Iol [id number] +18.0 D Implanted:Qty: 1 on 03/29/2024 by Portillo Ward MD at [facility] Right: Eye [employer] 07/19/2027 [id number] +18.0 D / [id number] / N/A Clareon Iol [id number] 18.5 Implanted:Qty: 1 on 04/12/2024 by Portillo Ward MD at [facility] Left: Eye 08/07/2027 CCA0T0 / [id number] 2 / Procedures Procedure Name Priority Date/Time Associated Diagnosis Comments GLUCOSE - POINT OF CARE Routine 04/12/2024 8:51 AM SCHEDULING ANALYST from Last 3 Months or Most Recently Relevant to Health Maintenance Results * (ABNORMAL) GLUCOSE - POINT OF CARE (04/12/2024 8:51 AM SCHEDULING ANALYST) Pathologist [facility] Glucose WB/POC 115(H) 70 - 99 mg/dL 04/12/2024 8:53 AM SCHEDULING ANALYST [facility] Specimen Type Venous 04/12/2024 8:53 AM SCHEDULING ANALYST [facility] Blood BLOOD SPECIMEN / Unknown 04/12/2024 8:51 AM SCHEDULING ANALYST 04/12/2024 8:52 AM SCHEDULING ANALYST us Portillo Ward MD LAB - POINT OF CARE ORDERABLE S Final Result [facility] [address] [place] [address], [place] [phone] from Last 3 Months or Most Recently Relevant to Health Maintenance Insurance [facility] Care Teams Parker Relationship Specialty Start Date End Date Hoang Bernal MD [address] [place] [address] PCP - General Family Medicine 02/09/24
--- OUTSIDE RECORDS SUMMARY | 2024-12-12 12:59 | XMS_ITS | Encounter Summary ---
Author Organization [facility] Address [address] [place] [address] Care Team Providers Care Pan Helper Name Role Phone Hoang Bernal MD Primary Care Provider [phone] Reason for Visit * Reason Onset Date Comments Appointment 03/30/2024 Encounter Details Date Type Department Care Team (Late st Contact Info) Description 03/30/2024 Telephone [facility] - Ophthalmology [address] [place] [address] Portillo Ward MD [facility] [place] [address] Appointment Social History Tobacco Use Types Packs/Day Years Used Date Smoking Tobacco: Every Day Cigarettes 0.5 48.7 Started: 1978 Smokeless Tobacco: Never Alcohol Use [...] POST OP appointment. Please assist and advise K TOP RAKER documented in this encounter Plan of Treatment Upcoming Encounters Date Type Department Care Team (Late st Contact Info) Description 01/17/2025 1:15 PM CDT Office Visit [facility] - Ophthalmology [address] [place] [phone] Fly Redding MD [address] [place] [address] [place] [phone] documented as of this encounter Visit Diagnoses Not on filedocumented in this encounter Care Teams Pan Helper Relationship Specialty Start Date End Date Hoang Bernal MD [address] [place] [address] PCP - General Family Medicine 02/09/24 documented as of this encounter
--- OUTSIDE RECORDS SUMMARY | 2024-12-12 12:59 | XMS_ITS | Encounter Summary ---
Author Organization [facility] Address [address] [place] [address] Phone Care Team Providers Care Staff Weapons Officer Name Role Phone Nader Richardson MD Primary Care Provider Kwame Peres MD Primary Care Provider Keyshawn Bobo DO Primary Care Provider [phone] Encounter Details Date Type Department Care Team (Late st Contact Info) Description 02/21/2020 Telephone [facility] [address] [place] [address] Kwame Peres MD [address] [place] [phone] Social History Tobacco Use Types Packs/Day [...] this month. He is reschedule for 12/17. ONAL SALES COORDINATOR documented in this encounter Plan of Treatment Not on file documented as of this encounter Visit Diagnoses Not on filedocumented in this encounter Additional Health Concerns Assessment Noted Time PHQ-9 Depression Total Score: 0 02/23/20 19 2:27 PM REGIONAL SALES COORDINATOR documented as of this encounter Care Teams Staff Weapons Officer Relationship Specialty [place] [address] [place] [address] PCP - General Family Medicine 02/22/19 09/02/20 [place] [address] [place] [address] PCP - General Oncology 09/03/20 09/03/20 Keyshawn Bobo DO [address] [address] PCP - General Internal Medicine 09/04/20 documented as of this encounter
--- OUTSIDE RECORDS SUMMARY | 2024-12-12 12:59 | XMS_ITS | Data Portability ---
Author Organization [facility] [employer], Main Office Address [address] [place] [address] Assessment No assessment recorded. Plan of Treatment Reminders Order Date Submit Date Provider Last Modified By Organization Details Last Modified Time Details Appointments None recorded. Lab urinalysis , dipstick 2022 023 [email or web address] [facility], [address] , [place], [address], 3 15:50:26 testostero ne, total, serum [address] [facility], [address], [place], [address], 05:01:27 urinalysis , dipstick 2022 023 [email or web address] [id number] [facility], [address] [facility] [facility] [address] [facility], [place], [address], 3 15:43:25 Referral None recorded. Procedures None recorded. Surgeries None recorded. Imaging US, bladder 2022 023 [email or web address] [facility], [address] , [place], [address], 3 15:51:06 US, bladder 2022 023 [email or web address] [facility], [address] , [place], [address], 3 15:44:42 Medication Orders Gemtesa 75 mg tablet 2022 023 [facility], [address] [facility], [place], [address], 3 15:50:33 Patient TargetsNo targets recorded. Patient InstructionsNo instructions recorded. Reason for Referral None Reported. Results Created Date Observation Date Name Description Value Unit Range Abnormal Flag Note LastModifiedBy Organization Detail LastModifiedTime 04/06/19 22 04/06/2021 urina lysis , dipst ick Nitrite (reference rage: negative mg/dl) negati ve Not Available [facility], [address], 04/06/2021 11:49:21 04/06/19 22 04/06/2021 urina lysis , dipst ick Urobilinogen (reference range: 0.2-1 mg/dl) 0.2 Not Available Z_[address], [address], 04/06/2021 11:49:21 04/06/19 22 04/06/2021 urina lysis , dipst ick Protein (reference range: negative mg/dl) 300 Not Available Z_hr [address], [address], 04/06/2021 11:49:21 04/06/19 22 04/06/2021 urina lysis , dipst ick pH (reference range: 5-7) 6.0 Not Available Z_[facility], [address], 04/06/2021 11:49:21 04/06/19 22 04/06/2021 urina lysis , dipst ick Blood (reference range: negative Murphy/ l) Modera te Not Available [facility] [place] [address], [address], [address], 04/06/2021 11:49:21 04/06/19 22 04/06/2021 urina lysis , dipst ick Specific [place] (reference range: 1.005-1.030) 1.020 Not Available Z_[address], [address], 04/06/2021 11:49:21 04/06/19 22 04/06/2021 urina lysis , dipst ick Ketone (reference range: negative mg/dl) Trace Not Available [address], [address], 04/06/2021 11:49:21 04/06/19 22 04/06/2021 urina lysis , dipst ick Bilirubin (reference range: negative mg/dl) Negati ve Not Available [address], [address], 04/06/2021 11:49:21 04/06/19 22 04/06/2021 urina lysis , dipst ick Glucose (reference range: negative mg/dl) Negati ve Not Available [address], [address], 04/06/2021 11:49:21 04/06/19 22 04/06/2021 urina lysis , dipst ick Appearance Clear Not Available [address], [address], 04/06/2021 11:49:21 04/06/19 22 04/06/2021 urina lysis , dipst ick Color Yellow Not Available [address], [address], 04/06/2021 11:49:21 04/05/19 23 04/05/2022 urina lysis , dipst ick Leukocytes (reference range: negative tre/ l) Negati ve Not Available [address], [address], 04/05/2022 13:42:35 04/05/19 23 04/05/2022 urina lysis , dipst ick Nitrite (reference rage: negative mg/dl) negati ve Not Available [address], [address], 04/05/2022 13:42:35 04/05/19 23 04/05/2022 urina lysis , dipst ick Urobilinogen (reference range: 0.2-1 mg/dl) 1 Not Available [address], [address], 04/05/2022 13:42:35 04/05/19 23 04/05/2022 urina lysis , dipst ick Protein (reference range: negative mg/dl) 300 Not Available [address], [address], 04/05/2022 13:42:35 04/05/19 23 04/05/2022 urina lysis , dipst ick pH (reference range: 5-7) 7.0 Not Available [address], [address], 04/05/2022 13:42:35 04/05/19 23 04/05/2022 urina lysis , dipst ick Blood (reference range: negative Murphy/ l) Modera te Not Available [address], [address] , [place], [address], 04/05/2022 13:42:35 04/05/19 23 04/05/2022 urina lysis , dipst ick Specific [place] (reference range: 1.005-1.030) 1.025 Not Available Z_[address], [place] [address], [place], [address], 04/05/2022 13:42:35 04/05/19 23 04/05/2022 urina lysis , dipst ick Ketone (reference range: negative mg/dl) Negati ve Not Available [address], [address] , [place], [address], 04/05/2022 13:42:35 04/05/19 23 04/05/2022 urina lysis , dipst ick Bilirubin (reference range: negative mg/dl) Negati ve Not Available [address], [place] [address], [place], [address], 04/05/2022 13:42:35 04/05/19 23 04/05/2022 urina lysis , dipst ick Glucose (reference range: negative mg/dl) 500 Not Available [address], [place] [address], [place], [address], 04/05/2022 13:42:35 04/05/19 23 04/05/2022 urina lysis , dipst ick Appearance Clear Not Available [facility] [address] [place] [address], [address], [place], [address], 04/05/2022 13:42:35 04/05/19 23 04/05/2022 urina lysis , dipst ick Color Yellow Not Available [facility] [address] [place] [address], [address], [place], [address], 04/05/2022 13:42:35 06/08/19 23 06/07/2022 urina lysis , dipst ick Leukocytes (reference range: negative tre/ l) Negati ve Not Available [facility] [address], [place], [address], 06/07/2022 13:47:03 06/08/19 23 06/07/2022 urina lysis , dipst ick Nitrite (reference rage: negative mg/dl) negati ve Not Available [facility] [address], [place], [address], 06/07/2022 13:47:03 06/08/19 23 06/07/2022 urina lysis , dipst ick Urobilinogen (reference range: 0.2-1 mg/dl) 0.2 Not Available [facility] [address], [place], [address], 06/07/2022 13:47:03 06/08/19 23 06/07/2022 urina lysis , dipst ick Protein (reference range: negative mg/dl) Modera te Not Available [facility] [address] [place] [address] [address], [place], [address], 06/07/2022 13:47:03 06/08/19 23 06/07/2022 urina lysis , dipst ick pH (reference range: 5-7) 6.0 Not Available [facility] [address], [place], [address], 06/07/2022 13:47:03 06/08/19 23 06/07/2022 urina lysis , dipst ick Blood (reference range: negative Murphy/ l) Small Not Available [facility] [address], [place], [address], 06/07/2022 13:47:03 06/08/19 23 06/07/2022 urina lysis , dipst ick Specific [place] (reference range: 1.005-1.030) 1.[address] [facility] [address], [place], [address], 06/07/2022 13:47:03 06/08/19 23 06/07/2022 urina lysis , dipst ick Ketone (reference range: negative mg/dl) Negati ve Not Available [facility] [address], [place], [address], 06/07/2022 13:47:03 06/08/19 23 06/07/2022 urina lysis , dipst ick Bilirubin (reference range: negative mg/dl) Negati ve Not Available [facility] [address], [place], [address], 06/07/2022 13:47:03 06/08/19 23 06/07/2022 urina lysis , dipst ick Glucose (reference range: negative mg/dl) Negati ve Not Available [facility] [address], [place], [address], 06/07/2022 13:47:03 06/08/19 23 06/07/2022 urina lysis , dipst ick Appearance Clear Not Available [facility] [address], [place], [address], 06/07/2022 13:47:03 06/08/19 23 06/07/2022 urina lysis , dipst ick Color Yellow Not Available [facility] [address], [place], [address], 06/07/2022 13:47:03 07/20/19 23 07/19/2022 urina lysis , dipst ick Leukocytes (reference range: negative tre/ l) Negati ve Not Available [facility] [address], [place], [address], 07/19/2022 13:39:49 07/20/19 23 07/19/2022 urina lysis , dipst ick Nitrite (reference rage: negative mg/dl) negati ve Not Available [facility] [address], [place], [address], 07/19/2022 13:39:49 07/20/19 23 07/19/2022 urina lysis , dipst ick Urobilinogen (reference range: 0.2-1 mg/dl) [address] [facility] [address], [place], [address], 07/19/2022 13:39:49 07/20/19 23 07/19/2022 urina lysis , dipst ick Protein (reference range: negative mg/dl) Large Not Available [facility] [address], [place], [address], 07/19/2022 13:39:49 07/20/19 23 07/19/2022 urina lysis , dipst ick pH (reference range: 5-7) 7.0 Not Available [facility] [address], [place], [address], 07/19/2022 13:39:49 07/20/1907/19/2022 urina lysis , dipst ick Blood (reference range: negative Murphy/ l) Modera te Not Available [facility] [address], [place], [address], 07/19/2022 13:39:49 07/20/19 23 07/19/2022 urina lysis , dipst ick Specific [place] (reference range: 1.005-1.030) 1.[address] [facility] [address], [place], [address], 07/19/2022 13:39:49 07/20/19 23 07/19/2022 urina lysis , dipst ick Ketone (reference range: negative mg/dl) Negati ve Not Available [facility] [address], [place], [address], 07/19/2022 13:39:49 07/20/19 23 07/19/2022 urina lysis , dipst ick Bilirubin (reference range: negative mg/dl) Negati ve Not Available [facility] [address], [place], [address], 07/19/2022 13:39:49 07/20/19 23 07/19/2022 urina lysis , dipst ick Glucose (reference range: negative mg/dl) Negati ve Not Available [facility] [address], [place], [address], 07/19/2022 13:39:49 07/20/19 23 07/19/2022 urina lysis , dipst ick Appearance Clear Not Available [facility] [address], [place], [address], 07/19/2022 13:39:49 07/20/19 23 07/19/2022 urina lysis , dipst ick Color Pale Yellow Not Available [facility] [address], [place], [address], 07/19/2022 13:39:49 04/05/19 23 04/05/2022 US, bladd er No observ ation record ed. [id number] [facility] [place] [address] [facility], [address], [place], [address], 05/19/2022 23:31:10 06/08/19 23 06/07/2022 US, bladd er No observ ation record ed. [email or web address] [facility] [address], [place], [address], 06/14/2022 11:04:39 07/20/19 23 07/19/2022 US, bladd er No observ ation record ed. [email or web address] [facility] [address], [place], [address], 07/26/2022 15:05:51 Result Notes None recorded. Problems Name Problem SNOMED Code Status Onset Date Resolution Date Notes Provider Name and Address Organization Details Recorded Time Increased frequency of urination 804901155 Active 023 Darshan Campos NP [address], [place], [address], [employer] 3 13:47:00 Fatigue 95814919 Active 023 Darshan Campos NP [address], [place], [address], [employer] 3 15:46:21 Problem Notes None recorded. Procedures Surgical History Date Name Laterality Status Provider Name and Address Organization Details Recorded Time Laminectomy completed Not Available [facility] 05/19/2022 23:28:48 Tonsillectomy completed Not Available [facility] 05/19/2022 23:28:48 Back Surgery completed Not Available [facility] 05/19/2022 23:28:48 Imaging Results None recorded. Procedure Notes None recorded. Medical Equipment None Reported. Allergies Allergen ID Allergen Name Allergen Category Reaction Reaction Severity Criticality Documentation Date Start Date Code Code System Note Provider Name and Address Organization Details Recorded Time 01734 ropinirol e medicatio n Not available Not available Not available 05/19/2022 15267 RxNorm Not Available [facility] 3 23:31:00 62209 pramipexo le medicatio n Not available Not available Not available 05/19/2022 00589 1 RxNorm Not Available [facility] 3 23:31:00 67679 Iodinated contrast media (substanc e) medicatio n Not available Not available Not available 05/19/2022 06793 2004 SNOMED Not Available [facility] 3 23:31:00 44697 gabapenti n medicatio n Not available Not available Not available 05/19/2022 47108 RxNorm Not Available [facility] 3 23:31:00 Medications Name Sig Start Date [...] Heart rate Body temperature Body weight Systolic And Diastolic Provider Name and Address Organization Details Last Updated DateTime 3 45.1 kg/m2 152.4 cm 93 % 93 % 127 /min 98.4 [degF] 372681. 84 g 172/104 mm[Hg] Not Available [facility] 3 23:29:16 Date Recorded Body mass index (BMI) Body height Body temperature Body weight Provider Name and Address Organization Details Last Updated DateTime 04/06/2021 43.4 kg/m2 152.4 cm 98.9 [degF] 410049.5 1 g Not Available [facility] 05/19/2022 23:29:17 Date Recorded Body mass index (BMI) Body height Oxygen saturation Oxygen saturation in Arterial blood by Pulse oximetry Heart rate Body temperature Body weight Systolic And Diastolic Provider Name and Address Organization Details Last Updated DateTime 3 46.7 kg/m2 152.4 cm 93 % 93 % 103 /min 98.1 [degF] 250840. 58 g 155/91 mm[Hg] Not Available [facility] 3 23:29:16 Date Recorded Body height Provider Name an d Address Organization Details Last Updated DateTime 06/07/2022 152.4 cm Magalis Daniel, MA [facility] [employer] [facility] 06/07/2022 15:11:41 Date Recorded Body mass index (BMI) Body weight Oxygen saturation Oxygen saturation in Arterial blood by Pulse oximetry Heart rate Body temperature Provider Name and Address Organization Details Last Updated DateTime 3 46.5 kg/m2 324926. 98 g 93 % 93 % 113 /min 98.1 [degF] Trenton Craven [facility] [employer] [facility] [employer] [facility] 3 15:24:17 Date Recorded Body height Provider Name an d Address Organization Details Last Updated DateTime 07/19/2022 152.4 cm Magalis Sanchez MA [facility] [employer] [facility] 07/19/2022 15:28:39 Date Recorded Heart rate Oxygen saturation Oxygen saturation in Arterial blood by Pulse oximetry Body mass index (BMI) Body weight Body temperature Provider Name and Address Organization Details Last Updated DateTime 3 113 /min 95 % 95 % 44.1 kg/m2 593906. 88 g 97.9 [degF] [facility] [employer] [facility] [employer] [facility] 3 15:34:49 Social History Question Answer Notes LastModified by [employer] Details LastModified Time Tobacco Smoking Status Current Every Day Smoker Not Available [facility] 05/19/2022 23:28:30 What Is Your Level Of Caffeine Consumption? None [id number] Information not available 05/19/2022 What Is Your Current Pack Years? 30ormorepack years [id number] Information not available 05/19/2022 At What Age Did You Start Smoking Tobacco? 14 [id number] Information not available 05/19/2022 How Much Tobacco Do You Smoke? 1 PPD [id number] Information not available 05/19/2022 Has Tobacco Cessation Counseling Been Provided? No [id number] Information not available 05/19/2022 How Many Years Have You Smoked Tobacco? 40 [id number] Information not available 05/19/2022 Sex: Unknown Functional Status Question Answer Note LastModified by [employer] Details LastModified Time Do you use any illicit or recreational drugs? No [id number] Information not available 05/19/2022 Do you or have you ever used any other forms of tobacco or nicotine? No [id number] Information not available 05/19/2022 Mental Status None recorded. Family History Relationship Description Onset Age of this Age Resolved Age Notes LastModified by Organization Details LastModified Time Unspecified Relation Heart disease [id number] Not available 05/19/2022 23:28:49 Unspecified Relation Diabetes mellitus [id number] Not available 05/19/2022 23:28:49 Unspecified Relation Hypertensive disorder [id number] Not available 05/19/2022 23:28:49 Unspecified Relation Malignant neoplasm of urinary bladder [id number] Not available 05/19/2022 23:28:50 Unspecified Relation Severe chronic obstructive pulmonary disease [id number] Not available 05/19/2022 23:28:50 Medical History Condition Response BLINDNESS N CYSTITIS N RHEUMATIC FEVER N BLADDER PROBLEMS N KIDNEY STONES N Enlarged Prostate N MRSA N SLEEP APNEA N INFECTIOUS DISEASE N HEART ARRHYTHMIA N PROSTATE N LUNG DISEASE/DISORDER N INSOMNIA N HISTORY OF DRUG ABUSE N COPD Y RADIATION / CHEMOTHERAPY N HIGH CHOLESTEROL / HYPERLIPIDEMIA Y HYPERTHYROIDISM N UTI N BLOOD DISEASES N EDEMA N HYPOTHYROIDISM N SHINGLES N BACK / NECK PROBLEMS N BOWEL PROBLEMS N DEPRESSION (INCLUDING POST ) N HAVE YOU BEEN HOSPITALIZED OR SEEN IN [facility] IN THE PAST YEAR ? N STROKE/TIA N THYROID DISEASE N BENIGN PROSTATIC HYPERPLASIA N DIALYSIS N OBESITY N GERD/NAUSEA N ANEURYSM N OSTEOPOROSIS N Increased Urination N URINARY/BLADDER/KIDNEY PROBLEMS N CORONARY ARTERY DISEASE (CAD) N ARTHRITIS N USE OF BLOOD THINNERS N NO SIGNIFICANT PAST MEDICAL HISTORY N DIABETES, TYPE Y EMPHYSEMA N GASTROINTESTINAL DISORDER N PARKINSON N GASTROINTESTINAL BLEEDING N BLOOD CLOTS N Difficulty Urinating N ASTHMA N HEPATITIS / LIVER DISEASE N CATARACTS Y GOUT N SLEEP DISORDER N ALZHEIMER'S DISEASE N ERECTILE DYSFUNCTION N HERPES N HEADACHES/MIGRAINES N SEIZURES/EPILEPSY N GI PROBLEMS N Low Testosterone N HEART MURMUR N PACEMAKER N DIZZINESS N HEART DISEASE/HEART PROBLEMS N AIDS/HIV N KIDNEY DISEASE N MULTIPLE SCLEROSIS N LIVER DISEASE N MALE HYPOGONADISM N HYPERTENSION Y CANCER: SPECIFY N TOURETTE'S N BLOOD TRANSFUSION N ANESTHESIA COMPLICATIONS N ANEMIA/BLOOD DISORDER N ATRIAL FIBRILLATION N AUTOIMMUNE DISEASE N TUBERCULOSIS N GLAUCOMA N Past Encounters Encounter ID Performer Location Encounter Start Date Encounter Closed Date Diagnosis/Indication Diagnosis SNOMED-CT Code Diagnosis ICD10 Code Diagnosis IMO Codes Diagnosis Note [id number] Darshan Campos NP [facility] [address] [address] 11/06/2020 00:00:00 11/06/2020 15:18:57 [id number] Darshan Campos NP [facility] [address] [address] 12/22/2020 00:00:00 12/23/2020 09:54:41 [id number] Darshan Campos NP [facility] [address] [address] 04/06/2021 00:00:00 04/13/2021 10:42:03 [id number] [facility] [address] [address] 04/05/2022 00:00:00 04/05/2022 14:49:21 [id number] Darshan Campos NP [facility] [address] [address] 05/17/2022 00:00:00 05/17/2022 15:14:27 [id number] Darshan Campos NP [facility] [address] [address] 06/07/2022 14:57:59 06/07/2022 15:44:42 Increased frequency of urination 476935882 R35.0 continue to avoid bladder irritants. Has failed 2 anticholin ergic medication s. Patient has history of hypertensi on persistent ly greater than 140/80. Myrbetriq contraindi cated. Patient given samples of Gemtesa. medication administra tion, use, side effects discussed. Follow up in 6 weeks for re-evaluat ion. Fatigue 81354643 R53.83 awaiting final results of testostero ne. I will call with results. Discussed that he has polycythem ia. May be related to sleep apnea. We discussed that this will need to be under control prior to starting any testostero ne replacemen t therapy due to increased risk of DVT, mi, and/or CVA. Screening for malignant neoplasm of prostate 022480190 Z12.5 PSA stable at 1.0 [id number] Darshan Campos NP [facility] [address] [facility] [address] [place] [address] 07/19/2022 15:21:07 07/19/2022 15:51:06 Increased frequency of urination 157986367 R35.0 continue to avoid bladder irritants. Has [...] stable on Gemtesa. Plan to continue. Fatigue 14295116 R53.83 awaiting final results of testostero ne. [...] results. Screening for malignant neoplasm of prostate 388534018 Z12.5 PSA stable at 1.0 Health Concerns Section Related Observation LastModified by Organization Detai ls LastModified Time None Recorded Concern Status LastModified by Organization Details LastModified Time None Recorded Advance Directives Directive None Recorded Payers Insurance Date Sequence Insurance Name Policy Number Policy Lovelace Covered Member ID Lovelace Member ID Guarantor Name 07/27/2022 1 [facility] - DOS ON OR AFTER 20 (MEDICAID REPLACEMENT - HMO) Leopoldo Yo [id number] Leopoldo Yo Notes Date Note Type Note Provider Name and Address Organization Details Recorded Time 06/07/2022 text/html 11/06/2020This is a 54-year-old male patient that was referred [...] freq; 3 IE, int, WS, noct) Darshan Campos NP [address] [facility], [facility] [address], [place], [address], [place] - [email or web address] 06/07/2022 15:50:06 07/19/2022 text/html 11/06/2020Thiharriett is a 54-year-old male patient that was referred [...] normal. Will need repeat total t. Darshan Campos NP [address], [facility] [address], [place], [address], [place] - [facility] 07/26/2022 16:36:10
--- OUTSIDE RECORDS SUMMARY | 2024-12-12 12:59 | XMS_ITS | Clinical Summary ---
Author Organization [facility] Address [address] [place] [address] Phone Care Team Providers Care Riveter Name Role Phone Keyshawn Bobo DO Primary [...] 11/16/2013 PSA Discussion 11/16/2018 Influenza Immunization (#1) 2024 SARS-COV-2 Immunization (3 - season) 2024 06/23/2020, 05/30/2020 Respiratory Syncytial Virus (RSV) Immunization [...] Insurance MEDICAID [employer] Care Teams Riveter Relationship Specialty Start Date End Date Keyshawn Bobo DO [address] [facility] [address] [place] [address] PCP - General Internal Medicine 09/04/20
--- OUTSIDE RECORDS SUMMARY | 2024-12-12 12:59 | XMS_ITS | Clinical Summary ---
Author Organization [employer] [id number] [facility] Address [address] [place] [address] Care Team Providers Care Wire Weaver Helper Name Role Phone Unavailable Primary Care Provider [...] Encounters Date Type Department Care Team Description 11/21/2024 External Device Data [facility] ABSTRACTION Provider, Abstract 11/20/2024 External Device Data [facility]STRACTION Provider, Abstract 11/07/2024 External Device Data [facility]STRACTION Provider, Abstract 10/24/2024 External Device Data [facility]STRACTION Provider, Abstract 10/23/2024 External Device Data [facility]STRACTION Provider, Abstract 10/03/2024 External Device Data [facility]STRACTION Provider, Abstract 10/03/2024 External Device Data [facility] ABSTRACTION Provider, Abstract 10/02/2024 External Device Data [facility] ABSTRACTION Provider, Abstract from Last 3 Months Social History Tobacco [...] 11/16/2008 ZOSTER VACCINE (1 of 2) 11/16/2013 RSV VACCINE (60+ or ) (1 - Risk 60-74 years 1-dose series) 2023 INFLUENZA VACCINE (#1) 2024 COLORECTAL SCREENING 10/25/2033 10/26/2023 Colorectal Cancer Screening 10/25/2033 Procedures Procedure Name Priority Date/Time Associated Diagnosis Comments ENDOSCOPY, COLON, DIAGNOSTIC Routine 10/26/2023 2:57 PM CDT from Last 3 Months or Most Recently Relevant to Health Maintenance Results * ENDOSCOPY, COLON, DIAGNOSTIC (10/26/2023 2:57 PM CDT) Frederic Mckeon MD GI PROCEDURE ORDERA BLES Final Result [facility] - [address] [place] [address]# [id number] [id number] from Last 3 Months or Most Recently Relevant to Health Maintenance Insurance [place] [address] MEDICAID
[2024-12-12 14:02] LABS: Hematocrit 52.8 % (42.0-52.0); Hemoglobin 18.7 g/dL (14.0-18.0); Immature Platelet Fraction Pct 3.2 % (0.9-11.2); Mean Corpuscular HGB Conc 35.4 g/dl (32-36); Mean Corpuscular Hemoglobin 33.3 pg (26-34); Mean Corpuscular Volume 94.0 fl (80-100); Platelet Count Result 143 k/mm3 (150-375); Red Blood Count 5.62 M/mm3 (4.6-6.20); White Blood Count 6.1 K/mm3 (4.5-10.0)
[2024-12-12 15:40] LABS: Iron 97 ug/dL (49-181)
[2024-12-12 15:46] LABS: Alanine Aminotransferase 34 U/L (6-50); Albumin Level 4.4 g/dL (3.5-5.1); Alkaline Phosphatase 65 U/L (38-126); Amylase 180 U/L (30-110); Anion Gap 9 mmol/L (4-12); Aspartate Amino Transferase 39 U/L (17-59); Bilirubin,Total 0.5 mg/dL (0.2-1.3); Blood Urea Nitrogen 15 mg/dL (9-20); Calcium 9.5 mg/dL (8.4-10.2); Carbon Dioxide 28 mmol/L (22-30); Chloride 100 mmol/L (98-107); Estimated Glomerular Filt Rate > 60; Glucose 140 mg/dL (65-110); Lipase 353 U/L (23-300); Magnesium 1.7 mg/dL (1.6-2.3); Potassium 4.0 mmol/L (3.4-5.0); Sodium 137 mmol/L (137-145); Total Protein 7.4 g/dL (6.3-8.2)
[2024-12-12 15:58] LABS: Percent Iron Saturation 27 % (20-50)
[2024-12-12 16:22] LABS: Ferritin 85.50 ng/mL (11.1-264)
[2024-12-12 16:52] LABS: Vitamin B12 616.0 pg/mL (239-931)
== END 2024-12-12 12:56 | disposition home or self-care (01) ==
LOC: ANHLAB 12:56
PROVIDERS: PCP Family Medicine; Visit Provider Nurse Practitioner
DX: K86.81 Exocrine pancreatic insufficiency (principal); R74.8 Abnormal levels of other serum enzymes; Q45.3 Other congenital malformations of pancreas and pancreatic duct; K76.0 Fatty (change of) liver, not elsewhere classified
CPT/HCPCS: 36415; 80053; 82150; 82306; 82607; 82728; 82746; 83540; 83550; 83690; 83735; 84446; 85027; 85055